=== PATIENT | male | born 2000 | race Caucasian/White ===

== ENCOUNTER 2025-03-02 11:23 | Inpatient (IN) | payer OTHER, SELFPAY ==
[2025-03-02] VITALS (8 sets, daily range): BP systolic 73–118; BP diastolic 61–73; BMI 19.0; BMI 19.1
[2025-03-02 08:16] LABS: Hematocrit 43.9 % (39.0-52.0); Hemoglobin 14.4 g/dL (13.0-18.0); Mean Corp Hgb Conc. 32.8 g/dL (33.0-37.0); Mean Corpuscular Volume 93.8 fL (80.0-94.0); Nucleated Red Blood Cells % 0 % (-); Platelet Count 221 10^3/uL (130-400); Red Cell Dist. Width 11.9 % (11.5-14.5)
--- NOTE | 2025-03-02 08:17 | ED.GENMED ---
History of Present Illness
General
Chief Complaint: Chest Pain
Source: patient
Exam Limitations: none
Time Seen by Provider: 03/02/25 08:10
Nursing documentation reviewed up to this point in time: agreed with
History of Present Illness
History of Present Illness:
24-year-old male smoker with no other reported chronic medical issues presents to the emergency department for evaluation of chest pain. Patient reports onset of symptoms this morning and have been constant since that time. He reports a sharp pain
in the right chest that gets worse with breathing. He denies any associated shortness of breath at rest although he reports pain causes him to be a bit short of breath especially when standing and moving around. He does have chronic smoker's cough
no worse than usual. He denies any recent congestion/sore throat/fever. Has not had any swelling or pain in the legs. Denies any abdominal pain, nausea, vomiting although he does report increased belching this morning. He denies any other acute
complaints. Denies any known history of heart issues, DVT/PE.
Review of Systems
Review of Systems
All Other Systems: ROS reviewed and negative except as documented in HPI and ROS
Constitutional: Denies fever or chills
EENT: Denies sore throat or runny nose
Respiratory: Reports trouble breathing; Denies cough (Chronic and unchanged)
Cardiac: Reports chest pain; Denies diaphoresis or palpitations
ABD/GI: Denies abdominal pain, nausea or vomiting
: Denies flank pain
Musculoskeletal: Denies neck pain or back pain
Neurological: Denies dizzy or headache
Phy Exam
Physical Exam
Physical Exam:
General: Awake, alert, oriented x3; no acute distress
Head: Normocephalic, atraumatic
Eyes: Conjunctiva normal, sclera anicteric
Throat: Airway intact, handling secretions
Neck: Trachea midline, supple without meningismus
Lungs: Clear to auscultation bilaterally, no wheezing, rales, rhonchi
Heart: Regular rate and rhythm, no murmurs, gallops, or rubs appreciated
Abd: Soft, non distended, nontender
Neuro: Grossly intact
Skin: Warm and dry
Extremities: No edema in extremities, no calf tenderness, equal pulses in all extremities
Scores
Heart Failure Risk
Heart Failure Risk Score: Not Applicable
Heart Score for Chest Pain Patients
STEMI patient?: No
History: Slightly or Non-Suspicious
ECG: Normal
Age: </= 45 years
Risk Factors: 1 or 2 Risk Factors
Troponin: </= Normal Limit
Heart Score for Chest Pain Patients: 1
Heart Score Risk: 2.5% MACE over next 6 weeks
PE Wells Score
Symptoms of DVT: No
No alternative diagnosis better explains the illness: No
Tachycardia with pulse > 100: No
Immobilization (>=3 days) or surgery within previous 4 weeks: No
Prior history of DVT or pulmonary embolism: No
Presence of hemoptysis: No
Presence of malignancy: No
Pulmonary Embolism Risk Score: 0
Probability of PE: Pt is low risk
Withdrawal Assessment of Alcohol
Withdrawal Assessment Completed?: Not applicable
Course
Orders/Labs/Results
Orders:
Orders
03/02/25 07:27
Electrocardiogram (*1) Urgent
Reason for Study: Chest Pain
03/02/25 07:28
EKG- Treatment ONCE
03/02/25 08:05
Complete Blood Count/With Diff Urgent
Comprehensive Metabolic Panel Urgent
Troponin I Urgent
03/02/25 08:11
CR Chest - 2 Views Urgent
Comment:
Reason For Exam: cp
03/02/25 08:16
Ketorolac [Toradol] 15 mg IV NOW STA
03/02/25 08:39
D-Dimer Urgent
Abnormal Lab Results
03/02/25
08:05
RBC 4.68 L 10^6/uL
(4.70-6.10)
MCHC 32.8 L g/dL
(33.0-37.0)
03/02/25 08:05
03/02/25 08:05
Vital Signs
Initial and Last Documented VS:
Initial Vital Signs
Temp Pulse Resp BP Pulse Ox
37.0 C 83 16 109/64 96
03/02/25 07:33 03/02/25 07:33 03/02/25 07:33 03/02/25 07:33 03/02/25 07:33
Last Documented Vital Signs
Temp Pulse Resp BP Pulse Ox
37.0 C 64 16 109/64 97
03/02/25 07:33 03/02/25 08:45 03/02/25 08:45 03/02/25 07:33 03/02/25 08:45
MDM/Problems Addressed
Differential Diagnosis Includes:
Costochondritis, pneumothorax, pneumonia, pericarditis, GERD; PE considered less likely clinically without tachypnea, hypoxia, tachycardia, signs/symptoms of DVT, risk factors; ACS considered very unlikely clinically
MDM/Problems Addressed:
24-year-old male smoker presents to the emergency room for evaluation of atypical right sided pleuritic chest pain. Vitals and exam are as above. EKG shows sinus rhythm no STEMI. Will place an IV check labs including a CBC and a CMP, troponin,
D-dimer. Check chest x-ray. Treat with Toradol. Reassess after the above.
Labs reviewed: CBC and CMP unremarkable, troponin undetectable. Chest x-ray reviewed by me shows large right-sided pneumothorax. Clinical reassessment patient remains stable. He is normotensive, normal heart rate, not tachypneic, not hypoxic. He
was placed on supplemental oxygen for his pneumothorax. I had a long discussion with the patient about the diagnosis will need tube thoracostomy. Discussed case with interventional radiology to facilitate chest tube. Will admit for continued
management.
Chronic conditions affecting care:
Smoking
*Radiology
Radiology exam reviewed: preliminary read by ED provider and radiology read reviewed
*Pulse Oximetry
SaO2: 96
Oxygen Mode of Delivery: Room air
Patient hypoxic: no (96%)
*EKG
Interpreted by ED Provider?: Yes
Heart Rate: 69
Rate: normal
Rhythm: sinus
[place]: right axis deviation
Interval: normal interval
QRS Pattern: normal QRS
Ischemia: no ischemia
*Critical Care Note
Total Time (30-74mins, 75-104mins- exclusive of procedures): Not Applicable
Data Reviewed
Source: patient and records
Patient Management
Discussion with other providers: Hospitalist (Discussed with hospitalist) and [employer] Practitioner (Discussed with interventional radiology)
Escalation/DeEscalation of care consider admission/obs:
Admission indicated
ED Attending Note
-
Portions of this chart may have been created with voice recognition software.� Occasional wrong word or��sound alike� substitutions may have occurred due to the inherent limitations of voice recognition software.
Discharge Plan
Departure
Discharge Problem:
Spontaneous pneumothorax
Prescriptions:
No Action
No Current Medications
0
Referrals:
Ronni Montes DO [Family Provider, Family Practice]
Interventions
Interventions:
*Risk Screen - Suicide Last Done: 03/02/25 07:33
*General Assessment Last Done: 03/02/25 07:33
*Neglect/Abuse Screening Last Done: 03/02/25 07:33
*ED- Fall Risk Assessment Last Done: 03/02/25 07:50
*ED COVID-19 Vaccine History Last Done: 03/02/25 07:33
*ED Influenza Vaccine History Last Done: 03/02/25 07:33
ED- Cardiac Assessment Last Done: 03/02/25 08:00
Discharge Date and Time
Print Language: GIBRALTARIAN
[2025-03-02 08:32] LABS: ALT (SGPT) 27 U/L (0-50); AST (SGOT) 26 U/L (17-59); Albumin 4.7 g/dl (3.5-5.0); Alkaline Phosphatase 73 U/L (38-126); Blood Urea Nitrogen 14 mg/dl (9-20); Calcium 9.2 mg/dl (8.4-10.2); Carbon Dioxide 29 mmol/L (22-30); Chloride 103 mmol/L (98-107); Estimated Creatinine Clearance 110 ml/min; Glucose 93 mg/dl (70-99); Potassium 4.4 mmol/L (3.5-5.1); Sodium 137 mmol/L (135-145); Total Protein 7.4 g/dl (6.3-8.2); eGFR > 60.00
[2025-03-02] MEDS: TORADOL 15 MG IV ×3 (08:40→23:12)
[2025-03-02 08:44] LABS: Troponin I < 0.012 ng/ml
[2025-03-02 09:10] LABS: D-Dimer < 0.27 ug/mlFEU (0.00-0.50)
--- NOTE | 2025-03-02 10:22 | W.PN.UPDATE ---
Update Note
Progress Note Update
Right chest tube placed 14 Fr adrian florentino, with near complete reexpansion of the right lung. Patient tolerated well.
--- NOTE | 2025-03-02 10:55 | PTCARENOTE ---
NATE RN- level two air leak noted of right chest tube. dr. velazquez made aware. no new orders at this time.
--- NOTE | 2025-03-02 11:14 | HPS.HSE ---
Family Physician
-
Family Physician: Ronni Montes
Chief Complaint
-
R chest pain
History of Present Illness
24yo M with PMHX of anxiety, medical marijuana use, nicotine dependency came with sharp constant R chest pain worse with respiration, found large R sided pneumothorax. No recent trauma to the chest noted. PAtient remained well saturating on RA in
ED. Chest tube placed.
Medical History
Past Medical History
Past Medical History: Reports Other
Additional Past Medical History:
see above
Past Surgical History: Reports None
Social History
Tobacco: Smoker
Alcohol: None
Drug: None
Family History
Family History: Not pertinent
Allergies / Home Medications
Allergies reflects when Allergies were last updated in [employer].
Home Medications with original date entered in [employer]
Allergy/Medication List:
Allergies
Allergy/AdvReac Type Severity Reaction Status Date / Time
seasonal allergies Allergy Itching Uncoded 03/02/25 07:35
Home Medications
Medical Marijuana 1 puff PO DAILYPRN PRN anxiety/stress 03/02/25
Review of Systems
-
History Source: Patient
A 12 point ROS was completed and negative except as noted: Yes
Respiratory: Reports See HPI
Physical Exam
Vital Signs
Vital Signs
Temp Pulse Resp BP Pulse Ox
97.8 F 59 15 97/64 96
03/02/25 10:29 03/02/25 10:41 03/02/25 10:41 03/02/25 10:41 03/02/25 10:41
Physical Exam
General: No Apparent Distress, Comfortable and Conversant
HEENT: NormoCephalic, Anicteric and Moist mucous membranes
Respiratory: Decreased Breath Sounds (R) and Chest Tube; No Wheezes or Crackles
Cardiac: S1/S2 and Regular Rhythm; No Murmur
GI: Soft, Non Tender and Non Distended
Genito-urinary: No costovertebral tender
Musculoskeletal: No Clubbing, No Cyanosis and No Edema
Skin: Warm; No Rash or Jaundice
Neuro: Awake, Alert, Oriented, AO x 3 and No Motor Deficits
Psych: Calm
Laboratory Results
-
03/02/25 08:05
03/02/25 08:05
Laboratory Results
Total Bilirubin 0.8 mg/dl (0.2-1.3) 03/02/25 08:05
AST 26 U/L (17-59) 03/02/25 08:05
ALT 27 U/L (0-50) 03/02/25 08:05
Alkaline Phosphatase 73 U/L (38-126) 03/02/25 08:05
Troponin I < 0.012 ng/ml 03/02/25 08:05
Data Reviewed
-
Diagnostic Radiology: Report Reviewed by me
Lab Data: Labs Reviewed by me
Impression/Plan
-
A/P:
#Spontaneous R pneumothorax
Chest tube placed by IRAD and water seal to low intermittent suction
Pulm consult
quit smoking
Serial CXR
Pain mgmt
NC 6L to facilitate reexpansion
Air lak test upon reexpansion and plan for chest tube removal
Avoid air travel for few months
Defer decision on CT chest to Pulm
#Nicotine dependency
Nicoderm patch
DVT ppx Lovenox
Full code
I have spent at least 76min revewing chart, test results, communication with consultants, father bedside and providing direct patient care
--- NOTE | 2025-03-02 11:27 | CM ---
Chart reviewed and spoke with patient and his father at ED bedside
He lives with his parents in [address] [place]
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
no DME
PCP Dr. Ronni Montes
RX plan yes
Pharmacy [facility]
no hx of VN nor SNF
DCP is to go home with no needs
Parents can drive him home
CM will continue to follow up for any dcp needs
--- NOTE | 2025-03-02 14:17 | CON.PUL ---
Consultation
Consultation Request
Date/Time Consultation Requested: 03/02/25
Date/Time Consultation Performed: 03/02/25
Performing Provider: Lakesha
Reason for Consultation: Ptx
Medical History
-
History of Present Illness:
24-year-old male with previous history of anxiety, current smoker presenting with acute onset right sided chest pain with shortness of breath. Chest x-ray demonstrating large right-sided pneumothorax with tension. Underwent urgent chest tube
placement on 03/02/2025 by IR with complete resolution. Never had pneumothorax before, denies prior known history of lung disease.
Current half pack-a-day smoker.
Past Medical History
Past Medical History: Other (see list below)
Social History
Tobacco: Smoker
Alcohol: None
Drug: None
Family History
Family History: Reviewed & Not Pertinent
Allergies / Home Medications
Allergies
Allergy/AdvReac Type Severity Reaction Status Date / Time
seasonal allergies Allergy Itching Uncoded 03/02/25 07:35
Home Medications
�Medication �Instructions �Recorded �Confirmed �Last Taken �Type
Medical Marijuana 1 puff PO DAILYPRN PRN 03/02/25 03/02/25 Unknown History
anxiety/stress
Review of Systems
-
History Source: Patient
All other systems: Negative unless noted
Vitals / Labs / Diagnostic Testing
Vital Signs
Temp Pulse Resp BP Pulse Ox
98.0 F 67 18 118/65 99
03/02/25 13:40 03/02/25 13:40 03/02/25 13:40 03/02/25 13:40 03/02/25 13:40
Lab Data
03/02/25 08:05
03/02/25 08:05
Diagnostic Testing:
Physical Exam
-
HEENT: Normocephalic, Anicteric and Moist Mucous Membranes
Cardiovascular: S1/S2 and Regular Rhythm
Respiratory: Clear, Non-Labored Respirations and Other (chest tube)
GI: Soft, Non Distended and Non Tender
Neurology: Awake, Alert, Oriented and No Motor Deficits
Skin: Warm, Dry and Good Color
General: Comfortable and Other (NAD)
Assessment
-
24-year-old male with previous history of anxiety, current smoker presenting with acute onset right sided chest pain with shortness of breath. Chest x-ray demonstrating large right-sided pneumothorax with tension. Underwent urgent chest tube
placement on 03/02/2025 by IR with complete resolution. Never had pneumothorax before, denies prior known history of lung disease. Current half pack-a-day smoker. We are consulted for evaluation 03/02/25.
Spontaneous pneumothorax, R s/p chest tube 03/02/25
Current smoker
R sided chest pain, SOB
Conditions present prior to admission
Alcohol intoxication, ER visit 2016, ETOH level 241
Anxiety
Medical THC use
Plan
No oxygen was needed on admission, currently saturating >90% on RA
No prior history of lung disease is noted
He is a current smoker, THC user as well
CXR/CT obtained indicating large R sided ptx, s/p chest tube placement by IR 03/02
Continued on suction, repeat CXR improved
Still having occasional bubbling in chamber, will await 24 hours to apply waterseal
Repeat CXR in AM
If doing well we discussed clamp trial by Friday
Smoking history noted - 1/2 PPD
Smoking cessation recommended, he is on patch daily
We discussed use of SL/PO THC rather than inhaled for medical usage
Will need outpatient pulmonary evaluation in our office for PFTs and 6MWT
Reviewed with patient and mother at bedside
All questions answered
We will follow
Diagnostic Data
Chest X-Ray: 03/02/25-Large right-sided pneumothorax. Slight shift of the mediastinum toward the left, indicating a degree of tension.
CT Scan:
Echo:
PFT's:
Reports and relevant images were personally reviewed.
Total time spent on this consultation __55__ minutes which includes review of history, physical exam, medications, laboratory data, personal review of imaging, extensive review of outpatient records, discussion with care team and respiratory therapy.
[2025-03-02] MEDS: NICODERM TRANSDERMAL 14 MG TRANSDERM (14:20)
[2025-03-02] MEDS: LOVENOX 40 MG SC (17:03)
[2025-03-02] MEDS: TYLENOL 650 MG PO (18:28)
[2025-03-02] MEDS: PROTONIX 40 MG PO (19:43)
[2025-03-02] MEDS: ZOFRAN 4 MG IV (19:43)
[2025-03-02] MEDS: DILAUDID 0.5 MG IV (19:44)
[2025-03-03] MEDS: DILAUDID 0.5 MG IV ×2 (06:29→20:21)
[2025-03-03 07:44] VITALS: BP 103/61
[2025-03-03] MEDS: PROTONIX 40 MG PO ×2 (08:12→20:20)
[2025-03-03] MEDS: NICODERM TRANSDERMAL 14 MG TRANSDERM (08:12)
--- NOTE | 2025-03-03 09:42 | PTCARENOTE ---
pt aaox3. states discomfort at chest tube site pain med given as ordered. right chest tube in place to wall suction. dressing c/d/i. reviewed plan of care with pt and importance to quit smoking.
--- NOTE | 2025-03-03 09:53 | W.PN.HOSP.TC ---
Today's Communication/Plan
-
take of O2 as lung reexpanded
Pulm tube mgmt
Chest XR in AM
Assessment / Plan
Assessment / Plan
24yo M with PMHX of anxiety, medical marijuana use, nicotine dependency came with sharp constant R chest pain worse with respiration, found large R sided pneumothorax. No recent trauma to the chest noted. PAtient remained well saturating on RA in
ED. Chest tube placed, lung reexpanded
A/P:
#Spontaneous R pneumothorax
Chest tube placed by IRAD and water seal to low intermittent suction,
Pulm consult
quit smoking
Serial CXR
Pain mgmt: patient declined opioids to concern for addiction. Ketorolac and PPI ordered
Air leak test upon reexpansion and plan for chest tube removal
Avoid air travel for few months
Defer decision on CT chest to Pulm
#Nicotine dependency
Nicoderm patch
#Anxiety
using medical marijuana - smokes
advised to stop/look for alternative - non-inhalation delivery method
DVT ppx Lovenox
Full code
I have spent at least 56min reviewing chart, test results, communication with consultants, father bedside and providing direct patient care
Anticipated Discharge: > 48 hours
Subjective/Interval History
-
Date of Service: March 03, 2025
Objective Data
-
Vital Signs:
Vital Signs
Temp Pulse Resp BP Pulse Ox
97.5 F 52 16 103/61 100
03/03/25 07:44 03/03/25 07:44 03/03/25 07:44 03/03/25 07:44 03/03/25 07:44
I&O
03/02/25 03/03/25 03/04/25
06:59 06:59 06:59
Intake Total 520 / 520
Output Total 3 / 3
Balance 517 / 517
Review of Systems
-
History Source: Patient
Constitutional: Reports No Symptoms
Physical Exam
-
General: No Apparent Distress
HEENT: Normocephalic
Respiratory: Clear to Auscultation
Cardiac: Regular Rhythm
Neuro: Awake, Alert, Oriented and AO x 3
Psych: Calm
--- NOTE | 2025-03-03 15:53 | W.PN.PUL3 ---
Today's Communication / Plan
-
Airleak unfortunately is persisting with tidal expiration as well as forced expiration (level 1 and level 5 leaking, respectively)
Continue with -20 cm of suction
CXR tomorrow AM
Pain control
If pain worsens then obtain stat CXR to reassess for worsening of right side PTX
Avoid incentive spirometer as this can worsen his PTX
If patient develops a prolonged airleak, then will need CT chest imaging as well as CT surgical evaluation
Pulmonary service will continue to follow along
Assessment
-
24-year-old male with previous history of anxiety, current smoker presenting with acute onset right sided chest pain with shortness of breath. Chest x-ray demonstrating large right-sided pneumothorax with tension. Underwent urgent chest tube
placement on 03/02/2025 by IR with complete resolution. Never had pneumothorax before, denies prior known history of lung disease. Current half pack-a-day smoker. We are consulted for evaluation 03/02/25.
Spontaneous pneumothorax, R s/p chest tube 03/02/25
Current smoker with history of vaping and THC use
R sided chest pain, SOB
Conditions present prior to admission
Alcohol intoxication, ER visit 2017, ETOH level 241
Anxiety
Medical THC use
Plan
No oxygen was needed on admission, currently saturating >90% on RA
No prior history of lung disease is noted
He is a current smoker, THC user as well
CXR/CT obtained indicating large R sided ptx, s/p small bore 14 Fr chest tube placement by IR 03/02
Continued on suction, repeat CXR this morning shows near complete resolution of pneumothorax, however there still is an air leak seen today on Pleur-evac (03/03)
Not appropriate yet to place chest tube on to waterseal
Obtain serial imaging with repeat CXR tomorrow a.m. to assure PTX is still resolved
If right-sided chest pain persists/worsens, then need to obtain stat CXR with notification to pulmonary on-call
If patient develops a prolonged airleak, then CT chest imaging will be needed with CT surgery evaluation
Smoking history noted - 0.5 - 1 PPD x 6 years
He says that he was dabbing THC 1-2 days prior to his PTX developing, and he had coughed while dabbing - I believe this is what caused his PTX
Avoid incentive spirometer for now as this can worsen his right-sided pneumothorax
Smoking cessation recommended, he is on patch daily
We discussed use of SL/PO THC rather than inhaled for medical usage
Will need outpatient pulmonary evaluation in our office for PFTs and 6MWT
Reviewed with patient and mother at bedside
All questions answered
We will follow
Diagnostic Data
Chest X-Ray: 03/02/25-Large right-sided pneumothorax. Slight shift of the mediastinum toward the left, indicating a degree of tension.
CT Scan:
Echo:
PFT's:
Reports and relevant images were personally reviewed.
Total time spent on this consultation __42__ minutes which includes review of history, physical exam, medications, laboratory data, personal review of imaging, extensive review of outpatient records, discussion with care team and respiratory therapy.
Subjective Data
-
Date of Service:
Date of Service: March 03, 2025
Chief Complaint: Pulmonary Follow Up
Subjective:
Patient seen and evaluated earlier this afternoon (late note entry). Near complete resolution of right-sided pneumothorax seen on CXR this morning. When I saw the patient, he had walked to the bathroom and then when he was placed back onto suction
of the chest tube, he developed significant right-sided chest pain. The pain is slowly improving s/p Toradol and ice pack. Patient is found members x 2 are at bedside
Chest tube remains on negative suction at 20 cmH2O. There remains an air leak in the Pleur-evac, with level 1 with normal tidal expiration and up to level 5 with forced expiration (i.e. cough).
Review of Systems
General: Other (Negative unless mentioned above)
Objective Data
Data Reviewed
Vital Signs / I&O / Oxygen:
Vital Signs
Temp Pulse Resp BP Pulse Ox
97.5 F 52 16 103/61 100
03/03/25 07:44 03/03/25 07:44 03/03/25 07:44 03/03/25 07:44 03/03/25 07:44
Intake and Output
03/02/25 03/03/25 03/04/25
06:59 06:59 06:59
Intake Total 520 / 520
Output Total 3 / 3
Balance 517 / 517
SaO2 100
Nasal Cannula flow liters per 6
minute
Physical Exam
General: Respiratory Distress (n), Comfortable, Chills (n) and Sweats (n)
HEENT: Normocephalic and Anicteric
Cardiovascular: S1-S2 and Peripheral Edema (n)
Respiratory: Wheeze (Occasionally heard during expiration at anterior right hemithorax), Crackles (Lateral right hemithorax), Rhonchi (n), Non-Labored Respirations and Chest Tube (Right hemithorax with level 1 airleak with normal tidal expiration
and level 5 airleak with forced expiration (i.e. cough).)
GI: Soft, Non Distended, Non Tender and Normal Bowel Sounds
Neurology: AO x 3 and Tremors (n)
Skin: Warm, Dry, Good Color and Cyanosis (n)
Labs/Micro/Reports
Lab Data
03/02/25 08:05
03/02/25 08:05
[2025-03-03 16:24] VITALS: BP 113/65
[2025-03-03] MEDS: TORADOL 15 MG IV (16:28)
[2025-03-03] MEDS: LOVENOX 40 MG SC (16:29)
[2025-03-03 23:09] VITALS: BP 108/59
[2025-03-04] MEDS: TYLENOL 650 MG PO (06:03)
[2025-03-04 07:00] VITALS: BP 109/62
[2025-03-04] MEDS: PROTONIX 40 MG PO ×2 (08:03→19:54)
[2025-03-04] MEDS: NICODERM TRANSDERMAL 14 MG TRANSDERM (08:03)
[2025-03-04] MEDS: MORPHINE SULFATE 2 MG IV ×2 (08:53→19:23)
--- NOTE | 2025-03-04 09:22 | W.PN.PUL3 ---
Today's Communication / Plan
-
Chest tube with ongoing intermittent leaking, suction remains
CT chest reviewed, persistent ptx, suction will be increased to -30
Reviewed case with IR, CTS, will place formal CT consult
I discussed with family extensively today at bedside
Pain management
Repeat CXR in AM
Assessment
-
24-year-old male with previous history of anxiety, current smoker presenting with acute onset right sided chest pain with shortness of breath. Chest x-ray demonstrating large right-sided pneumothorax with tension. Underwent urgent chest tube
placement on 03/02/2025 by IR with complete resolution. Never had pneumothorax before, denies prior known history of lung disease. Current half pack-a-day smoker. We are consulted for evaluation 03/02/25.
Spontaneous pneumothorax, R s/p chest tube 03/02/25
Current smoker with history of vaping and THC use
R sided chest pain, SOB
Conditions present prior to admission
Alcohol intoxication, ER visit 2017, ETOH level 241
Anxiety
Medical THC use
Plan
No oxygen was needed on admission, currently saturating >90% on RA
No prior history of lung disease is noted
He is a current smoker, THC user as well--discussed smoking cessation
CXR/CT obtained indicating large R sided ptx, s/p small bore 14 Fr chest tube placement by IR 03/02
Continued on suction, repeat CXR this morning shows near complete resolution of pneumothorax, however there still is an air leak seen today on Pleur-evac (03/03)
Not appropriate yet to place chest tube on to waterseal
CT chest imaging obtained with persistent ptx, suction increase to -30; chest tube remains in good position
Reviewed case with CT surgery -- will place formal evaluation
Smoking history noted - 0.5 - 1 PPD x 6 years
He says that he was dabbing THC 1-2 days prior to his PTX developing, and he had coughed while dabbing - I believe this is what caused his PTX
Avoid incentive spirometer for now as this can worsen his right-sided pneumothorax
Smoking cessation recommended, he is on patch daily
We discussed use of SL/PO THC rather than inhaled for medical usage
Will need outpatient pulmonary evaluation in our office for PFTs and 6MWT
Reviewed with patient and mother at bedside--had a prolonged discission again today
All questions answered
We will follow
Diagnostic Data
Chest X-Ray: 03/02/25-Large right-sided pneumothorax. Slight shift of the mediastinum toward the left, indicating a degree of tension.
CT Scan: 03/04/25- Right chest tube catheter in place. Moderate right pneumothorax. Associated mild posterior right lung base atelectasis. No pleural effusion or mediastinal shift.
Echo:
PFT's:
Reports and relevant images were personally reviewed.
Total time spent on this consultation __52__ minutes which includes review of history, physical exam, medications, laboratory data, personal review of imaging, extensive review of outpatient records, discussion with care team and respiratory therapy.
Subjective Data
-
Date of Service:
Date of Service: March 04, 2025
Chief Complaint: Pulmonary Follow Up
Subjective:
Still with intermittent leak while on suction
No new complaints, pain at site of chest tube
Family at bedside
Objective Data
Data Reviewed
Vital Signs / I&O / Oxygen:
Vital Signs
Temp Pulse Resp BP Pulse Ox
98.7 F 72 17 109/62 98
03/04/25 07:00 03/04/25 07:00 03/04/25 07:00 03/04/25 07:00 03/04/25 07:45
Intake and Output
03/03/25 03/04/25 03/05/25
06:59 06:59 06:59
Intake Total 520 / 520 1440 / 1440
Output Total 3 / 3 0 / 0
Balance 517 / 517 1440 / 1440
SaO2 98
Nasal Cannula flow liters per 6
minute
Physical Exam
General: Respiratory Distress (n), Comfortable, Chills (n) and Sweats (n)
HEENT: Normocephalic and Anicteric
Cardiovascular: S1-S2 and Peripheral Edema (n)
Respiratory: Wheeze (Occasionally heard during expiration at anterior right hemithorax), Crackles (Lateral right hemithorax), Rhonchi (n), Non-Labored Respirations and Chest Tube (Right hemithorax with level 1 airleak with normal tidal expiration
and level 5 airleak with forced expiration (i.e. cough).)
GI: Soft, Non Distended, Non Tender and Normal Bowel Sounds
Neurology: AO x 3 and Tremors (n)
Skin: Warm, Dry, Good Color and Cyanosis (n)
Labs/Micro/Reports
Lab Data
03/02/25 08:05
03/02/25 08:05
--- NOTE | 2025-03-04 10:13 | W.PN.HOSP.TC ---
Today's Communication/Plan
-
cont chest tube mgmt as per pulm
CT chest
Switch Ketorolac to morphin to avoid GI side effects, since chest tube planned to emain for now. Family and patient agree
Assessment / Plan
Assessment / Plan
24yo M with PMHX of anxiety, medical marijuana use, nicotine dependency came with sharp constant R chest pain worse with respiration, found large R sided pneumothorax. No recent trauma to the chest noted. PAtient remained well saturating on RA in
ED. Chest tube placed, lung reexpanded, but air leak persisted
A/P:
#Spontaneous R pneumothorax
Chest tube placed by IRAD and water seal to low intermittent suction,
Pulm consult
quit smoking
Serial CXR
Pain mgmt
Air leak test upon reexpansion and plan for chest tube removal
Avoid air travel for few months
CT chest wo contrast as per discussion with pulm due to persistent air leak
#Nicotine dependency
Nicoderm patch
#Anxiety
using medical marijuana - smokes
advised to stop/look for alternative - non-inhalation delivery method
DVT ppx Lovenox
Full code
I have spent at least 51min reviewing chart, test results, communication with consultants, father and mother bedside and providing direct patient care
Anticipated Discharge: > 48 hours
Subjective/Interval History
-
Date of Service: March 04, 2025
Objective Data
-
Vital Signs:
Vital Signs
Temp Pulse Resp BP Pulse Ox
98.7 F 72 17 109/62 98
03/04/25 07:00 03/04/25 07:00 03/04/25 07:00 03/04/25 07:00 03/04/25 07:45
I&O
03/03/25 03/04/25 03/05/25
06:59 06:59 06:59
Intake Total 520 / 520 1440 / 1440
Output Total 0 / 0
Balance 517 / 517 1440 / 1440
Review of Systems
-
History Source: Patient
All other systems: Reviewed and negative
Musculoskeletal: Reports Other (R chest pain, pleuritic)
Physical Exam
-
Respiratory: Rales (R); Negative Wheezes
GI: Soft, Nontender and Nondistended
Neuro: Awake, Alert, Oriented and AO x 3
Psych: Calm
--- NOTE | 2025-03-04 10:26 | W.PN.UPDATE ---
Update Note
Progress Note Update
Urinary retention with pain reported by RN
repeat labs
US renal and bladder
Bladder scan q6h
IVF
UA
[2025-03-04] MEDS: DILAUDID 0.5 MG IV ×3 (10:31→23:59)
[2025-03-04] MEDS: NSS 1000 IV (10:37)
[2025-03-04 10:59] LABS: Hematocrit 43.4 % (39.0-52.0); Hemoglobin 14.7 g/dL (13.0-18.0); Mean Corp Hgb Conc. 33.9 g/dL (33.0-37.0); Mean Corpuscular Volume 88.6 fL (80.0-94.0); Nucleated Red Blood Cells % 0 % (-); Platelet Count 248 10^3/uL (130-400); Red Cell Dist. Width 11.8 % (11.5-14.5)
[2025-03-04 11:13] LABS: ALT (SGPT) 21 U/L (0-50); AST (SGOT) 19 U/L (17-59); Albumin 4.3 g/dl (3.5-5.0); Alkaline Phosphatase 66 U/L (38-126); Blood Urea Nitrogen 16 mg/dl (9-20); Calcium 9.0 mg/dl (8.4-10.2); Carbon Dioxide 30 mmol/L (22-30); Chloride 104 mmol/L (98-107); Estimated Creatinine Clearance 111 ml/min; Glucose 102 mg/dl (70-99); Potassium 4.2 mmol/L (3.5-5.1); Sodium 138 mmol/L (135-145); Total Protein 7.4 g/dl (6.3-8.2); eGFR > 60.00
--- NOTE | 2025-03-04 12:09 | CONSULT.CT ---
Addendum entered and electronically signed by Khai Coles MD 03/05/25 08:28:
I saw and examined the patient.
The PA's note was reviewed and I agree with the note.
Comment:
24M spontaneous PTX
Recurrent PTX when on H2O seal yesterday
Resolution post return to suction
Maintain suction thru the weekend - potential H2O on Friday at [place]
Follow daily CXRs
Original Note:
Consultation
-
Date/Time Consultation Requested: 03/04/25
Date/Time Consultation Performed: 03/04/25
Requesting Provider: Dr. Nelly Ibarra
Performing Provider: Purvi Painting PA-C for Dr. Khai Coles
Reason for Consultation: spontaneous PTX
Patient History
Physicians
Family Physician: Ronni Montes
History of Present Illness
Patient is a 24y/oM with PMH anxiety & tobacco abuse who presented to the ED 03/02/25 with complaints of R sided chest pain, worsened by inspiration. Pt noted to have a large R sided PTX on CXR & chest tube was placed by IR without incident. CXR
yesterday AM with good expansion. Pt went for CT chest today & had a moderate PTX during study while off suction. CTS consulted for CT management and potential surgical intervention.
Past Medical History
Past Medical History: Other
anxiety
current tobacco abuse
Past Surgical History
Past Surgical History: None
Social History
Alcohol: None
Drug: None
Tobacco: Smoker
Allergies
Allergy/AdvReac Type Severity Reaction Status Date / Time
seasonal allergies Allergy Itching Uncoded 03/02/25 07:35
Home Medications
�Medication �Instructions �Recorded �Confirmed �Type
Medical Marijuana 1 puff PO DAILYPRN PRN 03/02/25 03/02/25 History
anxiety/stress
Review of Systems
-
History Source: Patient
General: Reports No Symptoms
Respiratory: Reports Other (pain from chest tube); Denies SOB or GIFFORD
Abdomen/GI: Reports No Symptoms
Neurological: Reports No Symptoms
Physical Exam
Vital Signs
Temp 98.7 F 03/04/25 07:00
Temp route: Oral 03/04/25 07:00
Pulse 72 03/04/25 07:00
Resp Rate 17 03/04/25 07:00
Blood pressure 109/62 03/04/25 07:00
Blood pressure extremity used: Left upper arm 03/04/25 07:00
Position: Lying 03/04/25 07:00
SaO2 98 03/04/25 07:45
Nasal Cannula flow liters per minute 6 03/03/25 09:42
Oxygen Mode of Delivery Room air 03/04/25 07:45
Other oxygen comment hummidified 03/02/25 20:00
Can the patient verbally communicate their pain? Yes 03/04/25 11:31
Pain scale ratin 03/04/25 11:31
Actual Weight 55.395 kg 03/02/25 13:48
Body Mass Index (BMI) 19.1 03/02/25 13:48
etC02 value 40 03/02/25 10:41
Labs
03/04/25 10:42
03/04/25 10:42
Troponin I < 0.012 ng/ml 03/02/25 08:05
Exam
General: Well Developed, Well Nourished and No Apparent Distress
Respiratory: Clear and Other (Chest tube currently at -30cm h2o; no tidaling or air leaking noted with deep inspiration or cough; chest tube not kinked at skin, dressings clean & intact, minimal drainage in pleurevac); Negative Accessory Muscle Use
Cardiac: Regular Rhythm
Rectal: Deferred by Provider
Skin: Warm and Dry
Neuro: Nonfocal/Grossly Intact
Psych: Calm
Assessment / Plan
-
R sided spontaneous PTX s/p chest tube placement by IR 03/02/25
- lung dropped significantly while off suction for CT scan, would continue suction uninterrupted x 48-72 hrs
- Chest tube currently not tidaling or leaking air; repeat portable CXR now to eval for resolution of PTX seen on CT scan
- daily AM CXRs
- pain control as needed per primary team
continue conservative measures through the weekend, if no progress toward tube removal by early next week, will consider surgical intervention. our team will follow along
Data Reviewed
-
Radiology: Image Personally Visualized and interpreted and Report Reviewed by me
CT Scan: Image Personally Visualized and interpreted and Report Reviewed by me
Labs: Labs Reviewed by me
--- NOTE | 2025-03-04 13:04 | W.PN.UPDATE ---
Addendum entered and electronically signed by He Adhikari MD 03/04/25 13:52:
Patient seen bedside - feeling comfortable. Previously able to urinate in the bathroom, but now due to continuous suctioning - has to do it bedside. Has Hx of urination anxiety. Currently agreeable for [facility] since will be limited in ambulation for
some time
Original Note:
Update Note
Progress Note Update
Acute urinary retention without focal neurological deficit - bladder scan 526ml and still cannot void with dyscomfort
US pending
Farris and urology consult
[2025-03-04] MEDS: LIDOCAINE URO-JET 2% 1 SYRINGE TOPICAL (14:11)
--- NOTE | 2025-03-04 14:17 | CON.MD ---
Consultation - Medical
-
see dictated note
pt with hx of hypospadius repair/bashful bladder/anxiety disorder
admitted with spont pneumothorax
unable to urinate- bladder scan >500cc
montes de oca placed- urine clear
start flomax
TOV in 48hrs depeding on CT disposition
Consultation
-
Date/Time Consultation Requested: 03/04/25 at 1:30 pm
Date/Time Consultation Performed: 03/04/25 at 2pm
Requesting Provider: Dr Adhikari
Performing Provider: Dr Egan
Reason for Consultation: retention
[2025-03-04] MEDS: FLOMAX 0.4 MG PO (14:52)
[2025-03-04 15:00] LABS: Urine Character Clear (Clear)
[2025-03-04 15:26] LABS: Urine Squamous Cell 0-2 /LPF (Few)
[2025-03-04 15:27] LABS: Urine Red Blood Cell 0-2 /HPF (0-2); Urine Urothelial Cell 0-2 /LPF (FEW); Urine White Cell 0-2 /HPF (0-5)
[2025-03-04 15:57] VITALS: BP 103/66
--- NOTE | 2025-03-04 16:58 | PTCARENOTE ---
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 Patient had 0 output overnight and throughout morning. Patient asked to void multiple times and unable to do so. Patient having difficulty and unable to void at
all. MD notified. Urology consulted..montes de oca catheter placed by Dr. Egan. Patient educated given.
--- NOTE | 2025-03-04 17:02 | CM ---
Pt with chest tube due to pneumothorax and montes de oca due to difficulty with urination.
Plan: discharge to home when medically cleared.
[2025-03-04] MEDS: LOVENOX 40 MG SC (17:25)
[2025-03-04] MEDS: NSS IV (22:23)
[2025-03-04 23:28] VITALS: BP 99/68
[2025-03-05 06:16] LABS: Hematocrit 39.6 % (39.0-52.0); Hemoglobin 13.5 g/dL (13.0-18.0); Mean Corp Hgb Conc. 34.1 g/dL (33.0-37.0); Mean Corpuscular Volume 89.0 fL (80.0-94.0); Nucleated Red Blood Cells % 0 % (-); Platelet Count 204 10^3/uL (130-400); Red Cell Dist. Width 11.8 % (11.5-14.5)
[2025-03-05 06:38] LABS: ALT (SGPT) 18 U/L (0-50); AST (SGOT) 19 U/L (17-59); Albumin 3.7 g/dl (3.5-5.0); Alkaline Phosphatase 56 U/L (38-126); Blood Urea Nitrogen 13 mg/dl (9-20); Calcium 8.7 mg/dl (8.4-10.2); Carbon Dioxide 29 mmol/L (22-30); Chloride 105 mmol/L (98-107); Estimated Creatinine Clearance 111 ml/min; Glucose 87 mg/dl (70-99); Potassium 4.1 mmol/L (3.5-5.1); Sodium 137 mmol/L (135-145); Total Protein 6.4 g/dl (6.3-8.2); eGFR > 60.00
[2025-03-05 07:00] VITALS: BP 113/65
--- NOTE | 2025-03-05 07:38 | W.PN.URO.CBU ---
Today's Communication / Plan
-
continue montes de oca and flomax
Assessment / Plan
-
urinary retention
montes de oca placed easily
on flomax
possible TOV in next 24-48hrs depending on CT dispo
Diagnosis
-
Date of Service: March 05, 2025
-
Patient Diagnosis:
pneumothorax
hx of hypospdius repair
urinary retention
Subjective
-
pt stable
urine clear
on flomax
Objective
-
Vital Signs
Temp Pulse Resp BP Pulse Ox
97.8 F 60 16 99/68 99
03/04/25 23:28 03/04/25 23:28 03/04/25 23:28 03/04/25 23:28 03/04/25 23:28
Intake and Output
03/04/25 03/05/25 03/06/25
06:59 06:59 06:59
Intake Total 1440 / 1440
Output Total 0 / 0 2 / 2
Balance 1440 / 1440 -2 / -2
Intake:
Oral fluids 1440 / 1440
Output:
CT Output (Total) 0 / 0 2 / 2
Right Lateral 0 / 0 2 / 2
Urine, Voided 0 / 0
Other:
Number of approximated MODERATE 1
amounts of urine
Laboratory Results
03/05/25 06:04
03/05/25 06:04
Physical Exam
-
General - no acute distress
Abdomen - soft, non-tender
Genitalia - montes de oca in place
[2025-03-05] MEDS: DILAUDID 0.5 MG IV ×2 (08:32→20:30)
[2025-03-05] MEDS: PROTONIX 40 MG PO ×2 (08:34→20:30)
[2025-03-05] MEDS: FLOMAX 0.4 MG PO (08:34)
[2025-03-05] MEDS: NICODERM TRANSDERMAL 14 MG TRANSDERM (08:34)
--- NOTE | 2025-03-05 10:41 | W.PN.HOSP.TC ---
Today's Communication/Plan
-
XR in AM
dont disconnect from suctioning
Assessment / Plan
Assessment / Plan
24yo M with PMHX of anxiety, medical marijuana use, nicotine dependency came with sharp constant R chest pain worse with respiration, found large R sided pneumothorax. No recent trauma to the chest noted. PAtient remained well saturating on RA in
ED. Chest tube placed, lung reexpanded, but air leak persisted
A/P:
#Spontaneous R pneumothorax
Chest tube placed by IRAD and water seal to low intermittent suction,
Pulm consult
quit smoking
Serial CXR
Pain mgmt
Air leak test upon reexpansion and plan for chest tube removal
Avoid air travel for few months
Chest tube repositioned as per results of CT chest on 03/04/25
CTX involved: cont continuous suctioning - dont disconnect from suction and follow recovery in few days, if unsuccessful - will need intervention
#Anxiety with situational acute urinary retention
[facility] per urology
Previously able to urinate in the bathroom, but now due to continuous suctioning - has to do it bedside. Has Hx of urination anxiety.
TOV when off suctioning
#Nicotine dependency
Nicoderm patch
#Anxiety
using medical marijuana - smokes
advised to stop/look for alternative - non-inhalation delivery method
DVT ppx Lovenox
Full code
I have spent at least 51min reviewing chart, test results, communication with consultants, father and mother bedside and providing direct patient care
Anticipated Discharge: > 48 hours
Subjective/Interval History
-
Date of Service: March 05, 2025
Objective Data
-
Labs:
Laboratory Results
03/05/25
06:04
WBC 8.2
Hgb 13.5
Hct 39.6
Plt Count 204
Sodium 137
Potassium 4.1
Chloride 105
Carbon Dioxide 29
BUN 13
Creatinine 0.8
Glucose 87
Calcium 8.7
Total Bilirubin 0.9
AST 19
ALT 18
Alkaline Phosphatase 56
Vital Signs:
Vital Signs
Temp Pulse Resp BP Pulse Ox
97.7 F 62 18 113/65 100
03/05/25 07:00 03/05/25 07:00 03/05/25 07:00 03/05/25 07:00 03/05/25 07:00
I&O
03/04/25 03/05/25 03/06/25
06:59 06:59 06:59
Intake Total 1440 / 1440 480 / 480
Output Total 0 / 0 1302 / 1302
Balance 1440 / 1440 -822 / -822
Review of Systems
-
History Source: Patient
All other systems: Reviewed and negative
Physical Exam
-
Respiratory: Rales (R)
GI: Soft, Nontender and Nondistended
Genito-urinary: Clear Urine and Farris
[2025-03-05] MEDS: MORPHINE SULFATE 2 MG IV ×2 (11:56→17:08)
[2025-03-05 15:00] VITALS: BP 105/64
--- NOTE | 2025-03-05 16:39 | W.PN.PUL3 ---
Today's Communication / Plan
-
Chest tube with ongoing intermittent leaking, suction remains
CT chest reviewed showing RUL 2.3 cm bullae with mild paraseptal emphysema in the anteromedial apical upper lobes with persistent ptx - -> suction to remain at [id number]
Reviewed case with IR, CTS - -> CT surgery recommends to maintain on CWS throughout the weekend
If airleak persists on Friday, would recommend upsizing chest tube
Pain management
Daily CXR
Pulmonary service will continue to follow along
Assessment
-
24-year-old male with previous history of anxiety, current smoker presenting with acute onset right sided chest pain with shortness of breath. Chest x-ray demonstrating large right-sided pneumothorax with tension. Underwent urgent chest tube
placement on 03/02/2025 by IR with complete resolution. Never had pneumothorax before, denies prior known history of lung disease. Current half pack-a-day smoker. We are consulted for evaluation 03/02/25.
Spontaneous pneumothorax, R s/p chest tube 03/02/25
Current smoker with history of vaping and THC use
R sided chest pain, SOB
Conditions present prior to admission
Alcohol intoxication, ER visit 2016, ETOH level 241
Anxiety
Medical THC use
Plan
No oxygen was needed on admission, currently saturating >90% on RA
No prior history of lung disease is noted
He is a current smoker, THC user as well--discussed smoking cessation
CXR/CT obtained indicating large R sided ptx, s/p small bore 14 Fr chest tube placement by IR 03/02
Continued on suction, repeat CXR this morning shows small apical right pneumothorax, and there is still is an air leak seen today on Pleur-evac (03/05), although improved compared to 03/03
Not appropriate yet to place chest tube on to waterseal
CT chest imaging obtained with persistent ptx, suction increase to -30; chest tube remains in good position
Reviewed case with CT surgery -- recs appreciated; no acute cardiothoracic intervention needed at this time
Smoking history noted - 0.5 - 1 PPD x 6 years
He says that he was dabbing THC 1-2 days prior to his PTX developing, and he had coughed while dabbing - I believe this is what caused his PTX
Avoid incentive spirometer for now as this can worsen his right-sided pneumothorax
Smoking cessation recommended, he is on patch daily
We discussed use of SL/PO THC rather than inhaled for medical usage
Will need outpatient pulmonary evaluation in our office for PFTs and 6MWT
Reviewed with patient and mother at bedside--had a prolonged discission again today
I answered all of the questions and the father's (Son) questions as well to their satisfaction.
We will follow
Diagnostic Data
Chest X-Ray: 03/02/25-Large right-sided pneumothorax. Slight shift of the mediastinum toward the left, indicating a degree of tension.
CT Scan: 03/04/25- Right chest tube catheter in place. Moderate right pneumothorax. Associated mild posterior right lung base atelectasis. No pleural effusion or mediastinal shift.
Echo:
PFT's:
Reports and relevant images were personally reviewed.
Total time spent on this consultation __44__ minutes which includes review of history, physical exam, medications, laboratory data, personal review of imaging, extensive review of outpatient records, discussion with care team and respiratory therapy.
Subjective Data
-
Date of Service:
Date of Service: March 05, 2025
Chief Complaint: Pulmonary Follow Up
Subjective:
Patient seen and evaluated this morning (late note entry). CXR shows minimal right apical pneumothorax with chest tube in place. He has an air leak (level 1) with suction applied, and when suction is clamped there is no airleak during tidal
breathing or with light cough. He feels well with no chest pain, TUCKER, nausea, fevers or chills.
Review of Systems
General: Other (Negative unless mentioned above)
Objective Data
Data Reviewed
Vital Signs / I&O / Oxygen:
Vital Signs
Temp Pulse Resp BP Pulse Ox
97.7 F 62 18 113/65 100
03/05/25 07:00 03/05/25 07:00 03/05/25 07:00 03/05/25 07:00 03/05/25 07:00
Intake and Output
03/04/25 03/05/25 03/06/25
06:59 06:59 06:59
Intake Total 1440 / 1440 480 / 480
Output Total 0 / 0 1302 / 1302
Balance 1440 / 1440 -822 / -822
SaO2 100
Nasal Cannula flow liters per 6
minute
Physical Exam
General: Respiratory Distress (n), Comfortable, Chills (n) and Sweats (n)
HEENT: Normocephalic and Anicteric
Cardiovascular: S1-S2 and Peripheral Edema (n)
Respiratory: Wheeze (Occasionally heard during expiration at anterior right hemithorax), Crackles (Lateral right hemithorax), Rhonchi (n), Non-Labored Respirations and Chest Tube (Right hemithorax with level 1 airleak with normal tidal expiration
and no air leak with light cough with suction off (previously had level 5 airleak leak with forced expiration))
GI: Soft, Non Distended, Non Tender and Normal Bowel Sounds
Neurology: AO x 3 and Tremors (n)
Skin: Warm, Dry, Good Color and Cyanosis (n)
Labs/Micro/Reports
Lab Data
03/05/25 06:04
03/05/25 06:04
[2025-03-05] MEDS: LOVENOX 40 MG SC (17:08)
[2025-03-05 23:00] VITALS: BP 106/63
[2025-03-06] MEDS: DILAUDID 0.5 MG IV ×4 (00:53→20:24)
[2025-03-06 07:00] VITALS: BP 110/59
[2025-03-06] MEDS: FLOMAX 0.4 MG PO (07:27)
[2025-03-06] MEDS: PROTONIX 40 MG PO ×2 (07:27→20:08)
[2025-03-06] MEDS: NICODERM TRANSDERMAL 14 MG TRANSDERM (07:27)
--- NOTE | 2025-03-06 10:56 | W.PN.HOSP.TC ---
Today's Communication/Plan
-
10% pneumothorax on XR
cont suction
Assessment / Plan
Assessment / Plan
24yo M with PMHX of anxiety, medical marijuana use, nicotine dependency came with sharp constant R chest pain worse with respiration, found large R sided pneumothorax. No recent trauma to the chest noted. PAtient remained well saturating on RA in
ED. Chest tube placed, lung reexpanded, but air leak persisted
A/P:
#Spontaneous R pneumothorax
Chest tube placed by IRAD and water seal to low intermittent suction,
Pulm consult
quit smoking
Serial CXR
Pain mgmt
Air leak test upon reexpansion and plan for chest tube removal
Avoid air travel for few months
Chest tube repositioned as per results of CT chest on 03/04/25
CTX involved: cont continuous suctioning - dont disconnect from suction and follow recovery in few days, if unsuccessful - will need intervention
#Anxiety with situational acute urinary retention
[facility] per urology
Previously able to urinate in the bathroom, but now due to continuous suctioning - has to do it bedside. Has Hx of urination anxiety.
TOV when off suctioning
#Nicotine dependency
Nicoderm patch
#Anxiety
using medical marijuana - smokes
advised to stop/look for alternative - non-inhalation delivery method
DVT ppx Lovenox
Full code
I have spent at least 51min reviewing chart, test results, communication with consultants, father and mother bedside and providing direct patient care
Anticipated Discharge: > 48 hours
Subjective/Interval History
-
Date of Service: March 06, 2025
Objective Data
-
Vital Signs:
Vital Signs
Temp Pulse Resp BP Pulse Ox
98.2 F 60 18 110/59 100
03/06/25 07:00 03/06/25 07:00 03/06/25 07:00 03/06/25 07:00 03/06/25 07:00
I&O
03/05/25 03/06/25 03/07/25
06:59 06:59 06:59
Intake Total 480 / 480 1919
Output Total 1302 / 1302 2062
Balance -822 / -822 -143 / -143
Review of Systems
-
History Source: Patient
All other systems: Reviewed and negative
Physical Exam
-
General: No Apparent Distress
HEENT: Normocephalic
Respiratory: Clear to Auscultation
Genito-urinary: Farris
Neuro: Awake, Alert, Oriented and AO x 3
Psych: Calm
[2025-03-06 15:00] VITALS: BP 108/68
[2025-03-06] MEDS: MORPHINE SULFATE 2 MG IV (16:20)
--- NOTE | 2025-03-06 16:22 | W.PN.PUL3 ---
Today's Communication / Plan
-
Chest tube with ongoing intermittent leaking, suction remains, now at -[id number]
CT chest reviewed showing RUL 2.3 cm bullae with mild paraseptal emphysema in the anteromedial apical upper lobes with persistent ptx
Would place onto supplemental O2 to maintain hyperoxia
Reviewed case with IR, CTS - -> CT surgery recommends to maintain on CWS throughout the weekend
If airleak persists by tomorrow, would recommend upsizing chest tube if surgery agrees
Pain management
Daily CXR
Pulmonary service will continue to follow along
Assessment
-
24-year-old male with previous history of anxiety, current smoker presenting with acute onset right sided chest pain with shortness of breath. Chest x-ray demonstrating large right-sided pneumothorax with tension. Underwent urgent chest tube
placement on 03/02/2025 by IR with complete resolution. Never had pneumothorax before, denies prior known history of lung disease. Current half pack-a-day smoker. We are consulted for evaluation 03/02/25.
Spontaneous pneumothorax, R s/p chest tube 03/02/25
Current smoker with history of vaping and THC use
R sided chest pain, SOB
Conditions present prior to admission
Alcohol intoxication, ER visit 2017, ETOH level 241
Anxiety
Medical THC use
Plan
No oxygen was needed on admission, currently saturating >90% on RA
No prior history of lung disease is noted
Recommend to start supplemental O2 to maintain hyperoxia for nitrogen washout
He is a current smoker, THC user as well--discussed smoking cessation
CXR/CT obtained indicating large R sided ptx, s/p small bore 14 Fr chest tube placement by IR 03/02
Continued on suction, repeat CXR on AM of 03/05 shows small apical right pneumothorax, and there has been a level 1 air leak with expiration since 03/05, although improved compared to 03/03
Not appropriate yet to place chest tube on to waterseal
CT chest imaging obtained with persistent ptx, suction increased to -30; chest tube remains in good position
Suction changed to -[id number] today (03/06) due to worsening R-sided PTX on imaging with mild mediastinal shift from right to left
Reviewed case with CT surgery -- recs appreciated; no acute cardiothoracic intervention needed at this time
Smoking history noted - 0.5 - 1 PPD x 6 years
He says that he was dabbing THC 1-2 days prior to his PTX developing, and he had coughed while dabbing - I believe this is what caused his PTX
Avoid incentive spirometer for now as this can worsen his right-sided pneumothorax
Smoking cessation recommended, he is on patch daily
We discussed use of SL/PO THC rather than inhaled for medical usage
Will need outpatient pulmonary evaluation in our office for PFTs and 6MWT
Reviewed plan with patient and answered all questions.
Pulmonary service will continue to follow along
We will follow
Diagnostic Data
Chest X-Ray: 03/02/25-Large right-sided pneumothorax. Slight shift of the mediastinum toward the left, indicating a degree of tension.
CT Scan: 03/04/25- Right chest tube catheter in place. Moderate right pneumothorax. Associated mild posterior right lung base atelectasis. No pleural effusion or mediastinal shift.
Echo:
PFT's:
Reports and relevant images were personally reviewed.
Total time spent on this consultation __38__ minutes which includes review of history, physical exam, medications, laboratory data, personal review of imaging, extensive review of outpatient records, discussion with care team and respiratory therapy.
Subjective Data
-
Date of Service:
Date of Service: March 06, 2025
Chief Complaint: Pulmonary Follow Up
Subjective:
Patient seen today at bedside (late note entry). Currently on room air breathing comfortably. CXR earlier today showed worsening right-sided pneumothorax and the thoracostomy tubing had to be adjusted/secured with repeat CXR later this afternoon
showing significant improvement in right-sided pneumothorax. He continues to have a level 1 airleak with a light cough while on suction, which is now at -[id number].
Review of Systems
General: Other (Negative unless mentioned above)
Objective Data
Data Reviewed
Vital Signs / I&O / Oxygen:
Vital Signs
Temp Pulse Resp BP Pulse Ox
98.2 F 60 18 110/59 100
03/06/25 07:00 03/06/25 07:00 03/06/25 07:00 03/06/25 07:00 03/06/25 07:00
Intake and Output
03/05/25 03/06/25 03/07/25
06:59 06:59 06:59
Intake Total 480 / 480 0 / 0
Output Total 1302 / 1302 2062 / 2062
Balance -822 / -822 -143 / -143
SaO2 100
Nasal Cannula flow liters per 6
minute
Physical Exam
General: Respiratory Distress (n), Comfortable, Chills (n) and Sweats (n)
HEENT: Normocephalic and Anicteric
Cardiovascular: S1-S2 and Peripheral Edema (n)
Respiratory: Wheeze (Occasionally heard during expiration at anterior right hemithorax), Crackles (Lateral right hemithorax), Rhonchi (n), Non-Labored Respirations and Chest Tube (Right hemithorax with level 1 airleak with normal tidal expiration
and no air leak with light cough with suction briefly clamped (previously had level 5 airleak leak with forced expiration))
GI: Soft, Non Distended, Non Tender and Normal Bowel Sounds
Neurology: AO x 3 and Tremors (n)
Skin: Warm, Dry, Good Color and Cyanosis (n)
Labs/Micro/Reports
Lab Data
03/05/25 06:04
03/05/25 06:04
[2025-03-06] MEDS: LOVENOX 40 MG SC (17:29)
[2025-03-06] MEDS: MELATONIN 5 MG PO (22:52)
[2025-03-06 23:00] VITALS: BP 113/65
[2025-03-06 23:42] VITALS: BP 113/65
[2025-03-07] MEDS: DILAUDID 0.5 MG IV ×4 (00:26→21:55)
--- NOTE | 2025-03-07 02:48 | PTCARENOTE ---
while assessing patient at beginning of shift this RN noted that suction on chest tube was set at -40cm of water and connected to suction via a canister. orders for chest tube are -30cm of water for suction. patient stated to this RN that a 'surgeon
changed his suction to -40 and connected to suction canister and did not want it being touched'. Tere ANDRADE notified of indiscrepancy between chest tube set up and orders. CARROT GRADER INSPECTOR at bedside to assess patient. CARROT GRADER INSPECTOR advised this RN to keep
chest tube settings as is. POC ongoing.
--- NOTE | 2025-03-07 06:27 | PTCARENOTE ---
no new output from R chest tube this shift. RAYMOND Espinosa notified. POC ongoing.
[2025-03-07 07:00] VITALS: BP 120/60
--- NOTE | 2025-03-07 07:30 | W.PN.UPDATE ---
Update Note
Progress Note Update
pt stable
montes de oca in place- urine clear and on flomax
when off tube suction (and able to ambulate) plan montes de oca removal for TOV
[2025-03-07] MEDS: FLOMAX 0.4 MG PO (08:56)
[2025-03-07] MEDS: PROTONIX 40 MG PO ×2 (08:56→20:51)
[2025-03-07] MEDS: NICODERM TRANSDERMAL 14 MG TRANSDERM (08:58)
[2025-03-07] MEDS: MORPHINE SULFATE 2 MG IV ×2 (10:07→14:41)
--- NOTE | 2025-03-07 10:27 | W.PN.HOSP.TC ---
Today's Communication/Plan
-
tube mgmt as per CTS.
TOV when chest tube removed
Assessment / Plan
Assessment / Plan
24yo M with PMHX of anxiety, medical marijuana use, nicotine dependency came with sharp constant R chest pain worse with respiration, found large R sided pneumothorax. No recent trauma to the chest noted. PAtient remained well saturating on RA in
ED. Chest tube placed, lung reexpanded, but air leak persisted
A/P:
#Spontaneous R pneumothorax
Chest tube placed by IRAD and water seal to low intermittent suction,
Pulm consult
quit smoking
Serial CXR
Pain mgmt
Air leak test upon reexpansion and plan for chest tube removal
Avoid air travel for few months
Chest tube repositioned as per results of CT chest on 03/04/25
CTX involved: cont continuous suctioning - dont disconnect from suction and follow recovery in few days, if unsuccessful - will need intervention
#Anxiety with situational acute urinary retention
Farris per urology
Previously able to urinate in the bathroom, but now due to continuous suctioning - has to do it bedside. Has Hx of urination anxiety.
TOV when off suctioning
#Nicotine dependency
Nicoderm patch
#Anxiety
using medical marijuana - smokes
advised to stop/look for alternative - non-inhalation delivery method
DVT ppx Lovenox
Full code
I have spent at least 51min reviewing chart, test results, communication with consultants, father and mother bedside and providing direct patient care
Anticipated Discharge: 24 - 48 hours
Subjective/Interval History
-
Date of Service: March 07, 2025
Objective Data
-
Vital Signs:
Vital Signs
Temp Pulse Resp BP Pulse Ox
98.0 F 69 16 120/60 100
03/07/25 07:00 03/07/25 07:00 03/07/25 07:00 03/07/25 07:00 03/07/25 07:00
I&O
03/06/25 03/07/25 03/08/25
06:59 06:59 06:59
Intake Total 1919 1200 / 1200
Output Total 2062 1013 / 1013
Balance -143 / -143 187 / 187
Review of Systems
-
History Source: Patient
All other systems: Reviewed and negative
Physical Exam
-
General: No Apparent Distress
Respiratory: Clear to Auscultation
Cardiac: Regular Rhythm
GI: Soft
Genito-urinary: Farris
Neuro: Awake, Alert, Oriented and AO x 3
Psych: Calm
--- NOTE | 2025-03-07 14:06 | W.PN.PUL3 ---
Today's Communication / Plan
-
Continue chest tube to suction
Daily chest x-ray
Wait for surgical input-patient contemplating VATS.
If no plans for surgery will consider waterseal and subsequent chest tube clamping and discontinuation of chest tube.
Total smoking cessation recommended again
Will follow
Assessment
-
24-year-old male with previous history of anxiety, current smoker presenting with acute onset right sided chest pain with shortness of breath. Chest x-ray demonstrating large right-sided pneumothorax with tension. Underwent urgent chest tube
placement on 03/02/2025 by IR with complete resolution. Never had pneumothorax before, denies prior known history of lung disease. Current half pack-a-day smoker. We are consulted for evaluation 03/02/25.
Spontaneous pneumothorax, R s/p chest tube 03/02/25
Current smoker with history of vaping and THC use
R sided chest pain, SOB
Conditions present prior to admission
Alcohol intoxication, ER visit 2017, ETOH level 241
Anxiety
Medical THC use
Plan
No oxygen was needed on admission, currently saturating >90% on RA
No prior history of lung disease is noted
Continue supplemental oxygen for now.
He is a current smoker, THC user as well--discussed smoking cessation-he states that he will not smoke anymore.
CXR/CT obtained indicating large R sided ptx, s/p small bore 14 Fr chest tube placement by IR 03/02
Continued on suction, repeat CXR on AM of 03/05 shows small apical right pneumothorax, and there has been a level 1 air leak with expiration since 03/05, although improved compared to 03/03
Few days ago did not tolerate waterseal.
Chest tube has been to suction-to my evaluation this afternoon 03/07/2025 no airleak.
Repeat chest x-ray this morning lung stopped-right apical bleb noted.
-
Keep chest tube to suction for today
Repeat chest x-ray tomorrow morning
CT chest noted with right apical bleb. Minimal left apical paraseptal emphysema.
CT surgery following the patient. Patient states that she is contemplating VATS-Will discuss with primary tonight 03/07/2025.
If no surgical intervention planned can consider waterseal tomorrow and eventual clamping to discontinuation of chest tube.
Smoking history noted - 0.5 - 1 PPD x 6 years
He says that he was dabbing THC 1-2 days prior to his PTX developing, and he had coughed while dabbing - I believe this is what caused his PTX
Avoid incentive spirometer for now as this can worsen his right-sided pneumothorax
Smoking cessation recommended, he is on patch daily
We discussed use of SL/PO THC rather than inhaled for medical usage
Will need outpatient pulmonary evaluation in our office for PFTs and 6MWT
Reviewed plan with patient and answered all questions.
Pulmonary service will continue to follow along
We will follow
Diagnostic Data
Chest X-Ray: 03/02/25-Large right-sided pneumothorax. Slight shift of the mediastinum toward the left, indicating a degree of tension.
CT Scan: 03/04/25- Right chest tube catheter in place. Moderate right pneumothorax. Associated mild posterior right lung base atelectasis. No pleural effusion or mediastinal shift.
Echo:
PFT's:
Reports and relevant images were personally reviewed.
Total time spent on this consultation __39__ minutes which includes review of history, physical exam, medications, laboratory data, personal review of imaging, extensive review of outpatient records, discussion with care team and respiratory therapy.
Subjective Data
-
Date of Service:
Date of Service: March 07, 2025
Chief Complaint: Pulmonary Follow Up
Subjective:
Patient offers no pulmonary complaints
Denies any chest pain
Denies shortness of breath
Objective Data
Data Reviewed
Vital Signs / I&O / Oxygen:
Vital Signs
Temp Pulse Resp BP Pulse Ox
98.0 F 69 16 120/60 100
03/07/25 07:00 03/07/25 07:00 03/07/25 07:00 03/07/25 07:00 03/07/25 10:59
Intake and Output
03/06/25 03/07/25 03/08/25
06:59 06:59 06:59
Intake Total 1919 / 1919 1200 / 1200
Output Total 2062 1013 / 1013
Balance -143 / -143 187 / 187
SaO2 100
Nasal Cannula flow liters per 2
minute
Physical Exam
General: Respiratory Distress (n), Comfortable, Chills (n) and Sweats (n)
HEENT: Normocephalic and Anicteric
Cardiovascular: S1-S2 and Peripheral Edema (n)
Respiratory: Wheeze (Occasionally heard during expiration at anterior right hemithorax), Crackles (Lateral right hemithorax), Rhonchi (n), Non-Labored Respirations and Chest Tube (Right hemithorax with level 1 airleak with normal tidal expiration
and no air leak with light cough with suction briefly clamped (previously had level 5 airleak leak with forced expiration))
GI: Soft, Non Distended, Non Tender and Normal Bowel Sounds
Neurology: AO x 3 and Tremors (n)
Skin: Warm, Dry, Good Color and Cyanosis (n)
Labs/Micro/Reports
Lab Data
03/05/25 06:04
03/05/25 06:04
[2025-03-07 15:00] VITALS: BP 129/70
--- NOTE | 2025-03-07 16:06 | CM ---
CM met with Hipolito ('Yeison')this afternoon. He will be going for a VATs procedure tomorrow. I discussed my role and availability to assist with any discharge needs. Yeison anticipates being discharged to home with no needs.
Plan: CM will contionue to follow to coordinate any post-op needs identified.
--- NOTE | 2025-03-07 16:24 | W.PN.UPDATE ---
Update Note
Progress Note Update
I have seen and examined the patient and reviewed all relevant imaging and data. This is a 24yo male with first time occurrence of spontaneous pneumothorax, first occurred Friday 03/02. He has history of smoking/vaping and using medical marijuana
which he reports inhalational use. Pneumothorax is being managed conservatively with some improvement now, there was some issue with his chest tube not being functional but now seems to be working. He has no airleak on my examination with chest tube
to -20 suction. I discussed with him the options of continuing on with medical management that would require clamp trial prior to tube removal vs VATS bleb resection with pleurodesis. I think either is resonable given no air leak today and lung up
on CXR, however with the blebs in his apex he would have reason for recurrence and would be reasonable to remove the diseased lung to minimize his risk. I discussed this with his mother as well and have answered all their questions. Seems they are
leaning toward surgical intervention which we can offer tomorrow morning.
--- NOTE | 2025-03-07 16:37 | W.PN.UPDATE ---
Update Note
Progress Note Update
Patient was seen Dr. Khan. No air leak was observed. CAT scan was discussed with the patient and how he has a bleb. It was discussed with the patient that due to this bleb he would be at risk for another spontaneous pneumothorax. Due to this
risk he was offered a VATS/pleurodesis with Dr. Kahn. After discussion with his parents, patient was amendable to surgery. Patient will be taken to the OR on Saturday, March 08, 2025. Preoperative orders and labs were placed. Patient will be
transferred to CVICU for preoperative prep. Consent to be obtained.
[2025-03-07 17:32] VITALS: BP 106/79
--- NOTE | 2025-03-07 17:38 | PTCARENOTE ---
Received pt from [facility] [address] [facility] RN. Ambulated on portable suction from stretcher. Chest tube placed to -20 cm suction. No air leak or crepitus noted. Room air 95%. SR on monitor. VSS. Family at bedside.
[2025-03-07 20:00] VITALS: BP 126/70
--- NOTE | 2025-03-07 20:26 | PTCARENOTE ---
Received pt from day shift RN at 1900. Pt Aox4, pupils 3 equal reactive, moves all extremities, complains of R side/chest pain 5/10 w/deep breaths. NSR HR 70s, BP 126/70, palpable pulses, no edema. Resp, lung sounds dim on R side, R CT, -20 wall
suction, no air leak, no crepitus, serous drainage. Normoactive bowel sounds, montes de oca draining clr yellow urine. Skin grossly intact, ct site dressing CDI. PIV x1, no gtt. See flowsheets for further documentation.
[2025-03-07 22:07] VITALS: BP 128/76
--- NOTE | 2025-03-07 23:49 | PTCARENOTE ---
Pt reassessment unchanged, VSS, NSR Hr 60-70s. Pt clipped and prep per protocol, 4% chlorhexidine bath given, montes de oca care completed, CT dressing changed, IV dilaudid 0.5mg given for pain control, pt now sleeping.
[2025-03-08] VITALS (25 sets, daily range): BP systolic 86–138; BP diastolic 61–87; BMI 19.3
[2025-03-08] MEDS: DILAUDID 0.5 MG IV ×3 (03:15→15:56)
[2025-03-08 03:16] LABS: Hematocrit 40.8 % (39.0-52.0); Hemoglobin 14.0 g/dL (13.0-18.0); Mean Corp Hgb Conc. 34.3 g/dL (33.0-37.0); Mean Corpuscular Volume 88.9 fL (80.0-94.0); Platelet Count 217 10^3/uL (130-400); Red Cell Dist. Width 11.5 % (11.5-14.5)
[2025-03-08 03:29] LABS: INR 1.11; PT 14.5 Sec (11.4-14.6)
[2025-03-08 03:30] LABS: APTT 35.7 Sec (23.4-35.0)
[2025-03-08 03:42] LABS: Blood Urea Nitrogen 16 mg/dl (9-20); Calcium 9.2 mg/dl (8.4-10.2); Carbon Dioxide 30 mmol/L (22-30); Chloride 101 mmol/L (98-107); Estimated Creatinine Clearance 111 ml/min; Glucose 99 mg/dl (70-99); Magnesium 2.1 mg/dl (1.6-2.3); Potassium 4.3 mmol/L (3.5-5.1); Sodium 136 mmol/L (135-145); eGFR > 60.00
--- NOTE | 2025-03-08 04:30 | PTCARENOTE ---
Pt refuses discontinuation of montes de oca catheter, stating he is worried he will not be able to 'pee in public' and have catheter reinserted. Discussed need to d/c montes de oca as catheter is portal of entry for infection. Discussed with PA> PA at bedside to
also talk with pt about d/c'ing montes de oca. Pt refuses, he is very anxious. PA agreed to have team see pt this am.
--- NOTE | 2025-03-08 04:33 | PTCARENOTE ---
Pt reassessment unchanged, SB-SR 50-60s, IV dilaudid given for R side chest pain. CHG bath completed. Plan for VATs this am.
--- NOTE | 2025-03-08 06:02 | PTCARENOTE ---
Pt 2nd CHG bath complete, new linens, gown, and tele leads. L and R BP complete, CT PA made aware of the difference between them, no intervention.
--- NOTE | 2025-03-08 06:55 | W.CVOR.SURPR ---
CVOR Surgeon Immed Pre Op
-
I have examined this patient prior to performance of the scheduled procedure.
The patient's condition is unchanged from the time of the dictated/written History and
Physical and the patient is able to undergo the scheduled procedure.
[2025-03-08] MEDS: ANCEF IV (08:45)
--- NOTE | 2025-03-08 09:54 | CM ---
Addendum entered by Nicci Jerry RN 03/08/25 14:20:
Spoke with patient and his mom. Reviewed postop restrictions and plan of care. Plan is for the patient to return home with CT Transitional RN.
Original Note:
Chart reviewed. Patient is in the OR today. Patient is independent of ADLS, lives with his parents in a 2 [address], 1 SANDY, 0 DME. Plan is for the patient to return home with CT Transitional RN. CM to follow
--- NOTE | 2025-03-08 10:18 | W.PN.CT.SURG ---
CT Surgery Operative Note
-
THORACIC SURGERY OPERATIVE REPORT
Preoperative Diagnosis: Right spontaneous pneumothorax
Postoperative Diagnosis: Same
Procedure(s) Performed:
1. Video-assisted thoracoscopic surgery
2. Right upper lobe bleb/wedge resection
3. Mechanical pleurodesis
Date of Surgery: 03/08/2025
Comorbidities:
1. Current smoker
Attending Surgeon: Elsi Khan MD, MPH
Assistants: Purvi Painting PA-C (present and necessary to medical services assistant, exchanging robotic instruments, retraction, suction, exposure, suture management, and wound closure under my direction)
Anesthesiology: Tommy Steve MD and Rinku Mcdaniels CRNA
Scrub and Circulating RNs: Esther Casas RN, Bandar Mcgowan RN
Anesthesia: Dual Lumen GETA
EBL: 75 cc
Products: None
Indication(s) for Procedures: 24-year-old male with first occurrence of spontaneous pneumothorax, history of current smoking and CT scan with significant blebs and a right upper lobe.
Findings: 1 large bleb in the right upper lobe surrounded by a cluster of smaller blebs. Lung otherwise healthy and normal-appearing without any obvious disease seen elsewhere.
Specimen(s):
Right upper lobe wedge
Description of Procedure: The patient was taken to the operating room. Induction via general anesthesia with endotracheal intubation was performed and peripheral venous access and arterial monitoring were inserted. Their identity and procedure to be
performed were verified and they were positioned with the right side up on the operating table. The patient was then prepped and draped in a sterile fashion. A preoperative time-out was performed with all members of the team present. A 5 mm port
was placed in the existing 14 English chest tube insertion site at approximately the seventh intercostal space. It was confirmed that we are within the chest cavity and the lung was appropriately deflated. We then created a 5 cm incision in the
fifth intercostal space anteriorly to use as our working port. An Curly wound retractor was placed in this incision.
The entire right lung and thoracic cavity was inspected for disease. No evidence of disease throughout the thoracic cavity, there was a large bleb at the apex in the right upper lobe that was surrounded by smaller cluster of diseased lung. Using 3
staple fires we removed the diseased area in its entirety and sent the specimen off for permanent pathology. Next we performed mechanical pleurodesis throughout the entire chest cavity with good result. Pro-gel was used to reinforce the staple
lines and two chest tubes were placed under direct visualization leading to the apex anteriorly with a 28 English straight tube and a 24 English Kirill placed in the diaphragmatic recess more posteriorly. After confirming hemostasis, the lung was fully
inflated and camera port was removed. Incision was closed in 3 layers including the fascia, dermal, and epidermis. Additional local anesthesia was injected into all incision sites. The skin wound was cleansed and sealed with Dermabond glue.
All instrument, sponge, and needle counts were confirmed to be correct x 2 at the end of the operation. The patient was transferred to the cardiac intensive care unit extubated in critical but stable condition.
I, Dr. Elsi Khan, was present, scrubbed for, and performed all critical elements of this procedure.
Elsi Khan MD, MPH
Cardiothoracic Surgeon
[facility]
This operative dictation was created using the [employer] dictation system. Please excuse any grammatical, typographical, or 'sound alike' errors
--- NOTE | 2025-03-08 10:33 | W.PN.INTV ---
Today's Communication / Plan
Recommendations
Postop management per team
Chest tube without airleak, maintained on suction
Pain control
Daily CXR
Reviewed with mother at bedside
Assessment
-
24-year-old male with previous history of anxiety, current smoker presenting with acute onset right sided chest pain with shortness of breath. Chest x-ray demonstrating large right-sided pneumothorax with tension. Underwent urgent chest tube
placement on 03/02/2025 by IR with complete resolution. Never had pneumothorax before, denies prior known history of lung disease. Current half pack-a-day smoker. We are consulted for evaluation 03/02/25.
Spontaneous pneumothorax, R s/p chest tube 03/02/25, persistent
s/p 1. Video-assisted thoracoscopic surgery 2. Right upper lobe bleb/wedge resection 3. Mechanical pleurodesis 03/08/25
Current smoker with history of vaping and THC use
R sided chest pain, SOB
Conditions present prior to admission
Alcohol intoxication, ER visit 2017, ETOH level 241
Anxiety
Medical THC use
Plan
No oxygen was needed on admission, currently saturating >90% on RA
No prior history of lung disease is noted
Continue supplemental oxygen for now.
He is a current smoker, THC user as well--discussed smoking cessation-he states that he will not smoke anymore.
CXR/CT obtained indicating large R sided ptx, s/p small bore 14 Fr chest tube placement by IR 03/02
Continued on suction, repeat CXR on AM of 03/05 shows small apical right pneumothorax, and there has been a level 1 air leak with expiration since 03/05, although improved compared to 03/03
Few days ago did not tolerate waterseal.
Chest tube has been to suction-to my evaluation this afternoon 03/07/2025 no airleak.
Repeat chest x-ray this morning lung stopped-right apical bleb noted.
Appreciate CTS eval
CT chest noted with right apical bleb. Minimal left apical paraseptal emphysema.
CT surgery following the patient.
Underwent Video-assisted thoracoscopic surgery/Right upper lobe bleb/wedge resection/Mechanical pleurodesis 03/08/25, transferred to CVICU
Further postop management per team
Smoking history noted - 0.5 - 1 PPD x 6 years
He says that he was dabbing THC 1-2 days prior to his PTX developing, and he had coughed while dabbing - I believe this is what caused his PTX
Smoking cessation recommended, he is on patch daily
We discussed use of SL/PO THC rather than inhaled for medical usage
Will need outpatient pulmonary evaluation in our office for PFTs and 6MWT
Reviewed plan with patient and answered all questions.
Pulmonary service will continue to follow along
We will follow
Diagnostic Data
Chest X-Ray: 03/02/25-Large right-sided pneumothorax. Slight shift of the mediastinum toward the left, indicating a degree of tension.
CT Scan: 03/04/25- Right chest tube catheter in place. Moderate right pneumothorax. Associated mild posterior right lung base atelectasis. No pleural effusion or mediastinal shift.
Echo:
PFT's:
Reports and relevant images were personally reviewed.
Critical Care time 45 mins -- The patient is admitted for acute critical illness for the treatment of vital organ failure and/or prevention of further life-threatening conditions. Total care includes time spent in review of history, physical exam,
medications, hemodynamic/ventilator parameters, laboratory data, imaging and discussion with house staff, pharmacy, respiratory therapy, cooling room attendant, and nursing.
Subjective Dataa
Subjective Data
Date of Service:
Date of Service: March 08, 2025
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
Subjective:
Transferred to CVICU, postop
Mother at bedside
Objective Data
Data Reviewed
Vital Signs / I&O / Oxygen:
Vital Signs
Temp Pulse Resp BP Pulse Ox
98.2 F 69 16 94/62 99
03/08/25 06:01 03/08/25 06:00 03/08/25 06:01 03/08/25 05:34 03/08/25 06:01
Intake and Output
03/07/25 03/08/25 03/09/25
06:59 06:59 06:59
Intake Total 1200 / 1200
Output Total 1013 / 1013 905 / 905
Balance 187 / 187 -905 / -905
SaO2 99
Nasal Cannula flow liters per 2
minute
Physical Exam
General: Comfortable and Other (NAD)
HEENT: Normocephalic, Anicteric and Moist Mucous Membranes
Cardiovascular: S1-S2 and Regular Rhythm
Respiratory: Clear, Non-Labored Respirations and Chest Tube
GI: Soft, Non Distended and Non Tender
Neurology: Awake, Alert, Oriented and No Motor Deficits
Skin: Warm, Dry and Good Color
Labs/Micro/Reports
Lab Data
03/08/25 02:51
03/08/25 02:51
Laboratory Results
03/08/25
02:51
PT 14.5
INR 1.11
APTT 35.7 H
[2025-03-08] MEDS: DILAUDID 0.25 MG IV (11:12)
[2025-03-08] MEDS: ANCEF 10 IV (11:47)
[2025-03-08] MEDS: PROTONIX 40 MG PO ×2 (11:53→19:53)
[2025-03-08] MEDS: NICODERM TRANSDERMAL 14 MG TRANSDERM (11:53)
[2025-03-08] MEDS: FLOMAX 0.4 MG PO (11:53)
--- NOTE | 2025-03-08 12:45 | PTCARENOTE ---
pt report received from PACU. pt oriented, PHYSICAL THERAPY ASSISTANT INSTRUCTOR aware of pain. PRN pain meds given. SR on the monitor, HR 60-70s. SBP 120s via cuff, [place] SBP 120-150s, PHYSICAL THERAPY ASSISTANT INSTRUCTOR aware of difference. palpable pulses, no edema. pt on 2LNC, 97-98% POX. lungs diminished.
shallow breathing. IS encouraged, 500ml. CTx2, no air leak or crepitus. pt abdomen s/n, denies n/v. tolerating sips and chips. hypoactive BS. Farris in place, clear yellow urine. surgical site intact. chest tube sites c/d/i. PIV x2. L radial Renay
flushed, zeroed, and calibrated. see worklist for VS, I&O, and assessment.
[2025-03-08] MEDS: TYLENOL 1000 MG PO (13:59)
[2025-03-08] MEDS: ROXICODONE 5 MG PO (14:34)
[2025-03-08] MEDS: NEURONTIN 100 MG PO (15:55)
[2025-03-08] MEDS: FLEXERIL 5 MG PO (15:55)
[2025-03-08] MEDS: ANCEF 5 IV (15:56)
--- NOTE | 2025-03-08 16:00 | PTCARENOTE ---
pt VSS, no changes in assessment. PRN pain meds given as ordered. mother at bedside.
[2025-03-08] MEDS: ZOFRAN 4 MG IV (17:15)
--- NOTE | 2025-03-08 18:05 | PTCARENOTE ---
Sydnee Niño dc'saroj as ordered. PRN Zofran given for nausea. pt OOB to chair w/ assist.
[2025-03-08] MEDS: DILAUDID 1 MG IV (19:39)
--- NOTE | 2025-03-08 19:45 | PTCARENOTE ---
Report received from KENROY Mayer. Pt assessed, VS done. Helped back to bed with 2 RNs. C/O severe R lateral CP. Dilaudid 1 mg IV given for pain. + relief. Pt with anxiety about pain, care at times. Pt awake, alert, oriented x 4. Speech clear. Equal
strength x 4. Pt on 2L/NC. Sats 99-100%. R lateral CT x 2. Both to -20 cm suction. No crepitus, no tidaling. + air leak, level 1, with coughing, phonation, and breathing. PA aware. BBS present. Decreased B bases. CDB, IS encouraged. IS peak 500 mls.
Pt in SR. Audible heart tones. +2 palpable pulses B radial and DPs. Belly soft, nontender. Hypoactive bs x 4. No n/v. Farris to drain, clear, yellow urine. Father at bedside. PA also in to assess pt. Ongoing plan of care.
[2025-03-08] MEDS: SENOKOT 8.6 MG PO (19:53)
[2025-03-09] VITALS (18 sets, daily range): BP systolic 108–128; BP diastolic 73–86; BMI 18.2
[2025-03-09] MEDS: ROXICODONE 5 MG PO ×4 (00:48→16:35)
--- NOTE | 2025-03-09 01:00 | PTCARENOTE ---
Roxicodone 5 mg for moderate c/o pain to R lateral chest. Other scheduled pain meds given. Pt remains in SR, SB when sleeping. CTs remain to -20 cm suction, sats 99-100% on 2L/NC. Ongoing plan of care.
--- NOTE | 2025-03-09 01:10 | W.PN.CT ---
Today's Communication / Plan
-
-pod #1
-no issues overnight
-2 R pleural CTs on -20 sxn, +1 intermittent air leak with talking and cough, output 50/140 in 12/24 hrs
-follow daily CXR
-pain control (avoid NSAIDs)
-wean off O2 as tolerated - pOx 98% on 2L
-tobacco cessation
-pt is apprehensive about taking out Farris as he has trouble urinating outside of his home- continue Flomax
-encourage OOB
Assessment / Plan
-
- Right spontaneous pneumothorax- s/p Video-assisted thoracoscopic surgery; Right upper lobe bleb/wedge resection; Mechanical pleurodesis by Dr. Khan on 03/08/25, pod #1
- CT scan with significant blebs in a right upper lobe.
- Current smoking
- Hx anxiety - uses medical marijuana
Discussed patient care with: Nursing and Care Team
Subjective
-
Date of Service: March 09, 2025
Objective Data
-
PT 14.5 Sec (11.4-14.6) 03/08/25 02:51
INR 1.11 03/08/25 02:51
APTT 35.7 Sec (23.4-35.0) H 03/08/25 02:51
Vital Signs
Vital Signs
Temp Pulse Resp BP Pulse Ox
97.8 F 58 13 115/76 99
03/08/25 20:00 03/09/25 00:30 03/09/25 00:30 03/09/25 00:00 03/09/25 00:30
CT Intake/Output/Weight
03/08/25 03/08/25 03/09/25
06:59 18:59 06:59
Intake Total 200 / 200
Output Total 905 / 905 505 / 575 70 / 575
Balance -905 / -905 -305 / -375 -70 / -375
SaO2: 99
Physical Exam
-
General: Awake and AOx3
Cardiovascular: Regular rate & rhythm, No Murmurs and No Rub
Respiratory: Decreased Breath Sounds (no crepitus noted, no wheeze)
Incision: Clean, Dry and Dressing Intact
Extremities: No Edema
Abdomen: soft, nontender, nondistended, + bowel sounds
Data Reviewed
-
Lab Results: Results Reviewed
Medications: Active Meds Reviewed
Chest X-Ray: Report Reviewed and Image Reviewed
ECG: Report Reviewed and Image Reviewed
--- NOTE | 2025-03-09 04:45 | PTCARENOTE ---
Labs drawn and sent.
[2025-03-09] MEDS: DILAUDID 0.5 MG IV ×2 (04:47→06:43)
[2025-03-09 05:14] LABS: Hematocrit 39.8 % (39.0-52.0); Hemoglobin 13.8 g/dL (13.0-18.0); Mean Corp Hgb Conc. 34.7 g/dL (33.0-37.0); Mean Corpuscular Volume 89.8 fL (80.0-94.0); Platelet Count 218 10^3/uL (130-400); Red Cell Dist. Width 11.3 % (11.5-14.5)
[2025-03-09 05:40] LABS: Blood Urea Nitrogen 14 mg/dl (9-20); Calcium 8.9 mg/dl (8.4-10.2); Chloride 98 mmol/L (98-107); Estimated Creatinine Clearance 111 ml/min; Glucose 95 mg/dl (70-99); Magnesium 2.2 mg/dl (1.6-2.3); Potassium 4.7 mmol/L (3.5-5.1); Sodium 134 mmol/L (135-145); eGFR > 60.00
[2025-03-09 05:48] LABS: Carbon Dioxide 32 mmol/L (22-30)
--- NOTE | 2025-03-09 06:45 | PTCARENOTE ---
Pt helped to standing, weighed on scale, then helped to chair. Pt with severe pain. Tearful. Dilaudid 0.5 mg IV given for pain with + relief. Report to Janeen holloway am. Walking rounds done. See VS flowsheet.
[2025-03-09] MEDS: TYLENOL 1000 MG PO ×4 (06:49→22:28)
--- NOTE | 2025-03-09 07:34 | W.PN.INTV ---
Today's Communication / Plan
Recommendations
Doing well, chest tube remains on suction, no airleak
CXR with resolving PTX, apical size noted now, can consider trying waterseal, will defer to team
Pain control otherwise, encouraged OOB, IS
Transferred to tele
Assessment
-
24-year-old male with previous history of anxiety, current smoker presenting with acute onset right sided chest pain with shortness of breath. Chest x-ray demonstrating large right-sided pneumothorax with tension. Underwent urgent chest tube
placement on 03/02/2025 by IR with complete resolution. Never had pneumothorax before, denies prior known history of lung disease. Current half pack-a-day smoker. We are consulted for evaluation 03/02/25.
Spontaneous pneumothorax, R s/p chest tube 03/02/25, persistent
s/p 1. Video-assisted thoracoscopic surgery 2. Right upper lobe bleb/wedge resection 3. Mechanical pleurodesis 03/08/25
Current smoker with history of vaping and THC use
R sided chest pain, SOB
Conditions present prior to admission
Alcohol intoxication, ER visit 2017, ETOH level 241
Anxiety
Medical THC use
Plan
No oxygen was needed on admission, currently saturating >90% on RA
No prior history of lung disease is noted
Continue supplemental oxygen for now.
He is a current smoker, THC user as well--discussed smoking cessation-he states that he will not smoke anymore.
CXR/CT obtained indicating large R sided ptx, s/p small bore 14 Fr chest tube placement by IR 03/02
Continued on suction, repeat CXR on AM of 03/05 shows small apical right pneumothorax, and there has been a level 1 air leak with expiration since 03/05, although improved compared to 03/03
Few days ago did not tolerate waterseal.
Appreciate CTS eval
CT chest noted with right apical bleb. Minimal left apical paraseptal emphysema.
CT surgery following the patient.
Underwent Video-assisted thoracoscopic surgery/Right upper lobe bleb/wedge resection/Mechanical pleurodesis 03/08/25, transferred to CVICU
Further postop management per team
Could consider waterseal trials
Smoking history noted - 0.5 - 1 PPD x 6 years
He says that he was dabbing THC 1-2 days prior to his PTX developing, and he had coughed while dabbing - I believe this is what caused his PTX
Smoking cessation recommended, he is on patch daily
We discussed use of SL/PO THC rather than inhaled for medical usage
Will need outpatient pulmonary evaluation in our office for PFTs and 6MWT
Reviewed plan with patient and answered all questions.
Pulmonary service will continue to follow along
We will follow
Diagnostic Data
Chest X-Ray: 03/02/25-Large right-sided pneumothorax. Slight shift of the mediastinum toward the left, indicating a degree of tension.
CT Scan: 03/04/25- Right chest tube catheter in place. Moderate right pneumothorax. Associated mild posterior right lung base atelectasis. No pleural effusion or mediastinal shift.
Echo:
PFT's:
Reports and relevant images were personally reviewed.
Total time spent on this consultation/encounter __51__ minutes which includes review of history, physical exam, medications, laboratory data, personal review of imaging, extensive review of outpatient records, discussion with care team and
respiratory therapy.
Subjective Dataa
Subjective Data
Date of Service:
Date of Service: March 09, 2025
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
Subjective:
Doing well now, stable on RA
Chest tube remains on suction
Sitting in chair
Objective Data
Data Reviewed
Vital Signs / I&O / Oxygen:
Vital Signs
Temp Pulse Resp BP Pulse Ox
98 F 63 16 117/76 100
03/09/25 00:00 03/09/25 07:15 03/09/25 07:15 03/09/25 07:00 03/09/25 07:15
Intake and Output
03/08/25 03/09/25 03/10/25
06:59 06:59 06:59
Intake Total 200 / 200
Output Total 905 / 905 1615 / 1615
Balance -905 / -905 -1415 / -1415
SaO2 100
Nasal Cannula flow liters per 2
minute
Physical Exam
General: Comfortable and Other (NAD)
HEENT: Normocephalic, Anicteric and Moist Mucous Membranes
Cardiovascular: S1-S2 and Regular Rhythm
Respiratory: Clear, Non-Labored Respirations and Chest Tube
GI: Soft, Non Distended and Non Tender
Neurology: Awake, Alert, Oriented and No Motor Deficits
Skin: Warm, Dry and Good Color
Labs/Micro/Reports
Lab Data
03/09/25 05:00
03/09/25 05:00
--- NOTE | 2025-03-09 07:40 | W.PN.UPDATE ---
Update Note
Progress Note Update
pt s/p vats/bled resection
chest tubes in place
feels weak today
montes de oca in place- urine clear
on flomax
plan to continue to montes de oca today- when chest tubes out and pt stronger can remove cath for TOV
--- NOTE | 2025-03-09 08:15 | PTCARENOTE ---
Assumed care of patient. Walking rounds completed with previous RN. Pt assessed while he was sitting in the chair. Pt alert and oriented x4. Rates right sided surgical pain 5/10-see MAR. Denies nausea. Weak throughout. Anxious, soft spoken. NSR on
tele with rates in the 60s. BP 113/77. POX 100% on 1L, titrated to RA, POX 100%. Lungs diminished throughout. IS and deep breathing encouraged. No cough noted. Right lateral chest tubes x2 to -20cm suction draining serosanguineous fluid. +1
intermittent air leak. Abdomen soft, flat, nontender. Hypoactive BS. Encouraged diet. Farris catheter intact draining adequate amounts of clear jami urine. CT dressing CDI. Right lateral puncture site approximated, with skin glue, LAZARO. PIV x2
intact. See MAR for medication administration. See worklist for complete nursing assessment. Plan of care reviewed and patient in agreement.
[2025-03-09] MEDS: ANCEF 5 IV ×2 (08:22)
[2025-03-09] MEDS: NICODERM TRANSDERMAL 14 MG TRANSDERM (08:22)
[2025-03-09] MEDS: LIDOCAINE 4% PATCH 1 PATCH TOPICAL (08:22)
[2025-03-09] MEDS: PROTONIX 40 MG PO ×2 (08:23→19:11)
[2025-03-09] MEDS: FLOMAX 0.4 MG PO (08:23)
[2025-03-09] MEDS: FLEXERIL 5 MG PO (08:23)
[2025-03-09] MEDS: SENOKOT 8.6 MG PO ×2 (08:24→19:33)
[2025-03-09] MEDS: NEURONTIN 100 MG PO ×4 (08:24→22:28)
[2025-03-09] MEDS: LASIX 20 MG IV (08:24)
[2025-03-09] MEDS: ZOFRAN 4 MG IV ×2 (09:06→17:14)
--- NOTE | 2025-03-09 11:40 | PTCARENOTE ---
Pt reassessed. NSR on tele with rates in the 80s. BP 110/80. POX 99% on RA. Surgical sites stable. CT output scant. +1 intermittent air leak continues. Farris draining clear yellow urine. Pt ambulating in the room with standby assist. Pt tolerated.
--- NOTE | 2025-03-09 13:26 | PTCARENOTE ---
Pt ambulated in the room from the window to the door x3 pt tolerated.
--- NOTE | 2025-03-09 15:35 | CM ---
Chart reviewed. Patient is independent of ADLS, lives with his parents in a 2 S[address], 1 SANDY, 0 DME. Plan is for the patient to return home with CT Transitional RN. CM to follow
--- NOTE | 2025-03-09 16:30 | PTCARENOTE ---
Pt reassessed. NSR with rates in the 60s-70s. BP 114/79. POX 99% on RA. Surgical sites stable. CT x2 with +1 intermittent air leak maintained. Farris draining adequate amounts of clear yellow urine. No acute changes.
[2025-03-09] MEDS: DILAUDID 1 MG IV (19:10)
[2025-03-09] MEDS: REMOVE LIDOCAINE PATCH 1 PATCH REMOVE (19:11)
--- NOTE | 2025-03-09 19:45 | PTCARENOTE ---
Patient received from RN @ 1900. Patient sitting in chair OOB w/ call kerr in reach. Patient describes pain 12/15. See MAR for details. AOx3. Patient is a stand by assist. SR on monitor. BP 128/86 HR 70. Heart sounds audible. Lungs
diminished in bases bilaterally. POX 100% RA. IS 750. 2x Right lateral CT set to -20 suction draining serosanguineous fluid. +1 intermittent air leak noted. Patient states no nausea and intermittent gas. Bowel sounds hypoactive. Farris
draining clear yellow urine. Farris care performed. Surgical sites all C/D/I. PIV patent and intact. See worklist for more details.
[2025-03-10] VITALS (7 sets, daily range): BP systolic 102–123; BP diastolic 73–83; BMI 18.0
[2025-03-10] MEDS: ROXICODONE 5 MG PO ×2 (01:03→05:53)
--- NOTE | 2025-03-10 01:08 | PTCARENOTE ---
Patient reassessed. SR on monitor. BP 117/83 HR 80 POX 98% RA. Patient states pain is 7/10. See MAR for details.
--- NOTE | 2025-03-10 02:54 | W.PN.CT ---
Today's Communication / Plan
-
Today's Communication / Plan
-pod #2
-no issues overnight
-2 R pleural CTs on -20 sxn, +1 intermittent air leak with talking and cough, output 10/45 in 12/24 hrs
-follow daily CXR
-stable R tiny apical ptx from lung tissue removed
-pain control (avoid NSAIDs)
-weaned off O2 - pOx 100% on RA
-pt is planning to stop any further tobacco or vaping
-Urology following re: Farris, continue Flomax
-encourage OOB
Assessment / Plan
-
- Right spontaneous pneumothorax- s/p Video-assisted thoracoscopic surgery; Right upper lobe bleb/wedge resection; Mechanical pleurodesis by Dr. Khan on 03/08/25, pod #2
- CT scan with significant blebs in a right upper lobe.
- Current smoking
- Hx anxiety - uses medical marijuana
Discussed patient care with: Nursing and Pharmacy
Subjective
-
Date of Service: March 10, 2025
Objective Data
-
Lab Results
03/09/25 05:00
PT 14.5 Sec (11.4-14.6) 03/08/25 02:51
INR 1.11 03/08/25 02:51
APTT 35.7 Sec (23.4-35.0) H 03/08/25 02:51
Vital Signs
Vital Signs
Temp Pulse Resp BP Pulse Ox
98.7 F 86 18 117/83 100
03/09/25 22:32 03/10/25 01:01 03/09/25 22:32 03/10/25 01:01 03/09/25 22:32
CT Intake/Output/Weight
03/09/25 03/09/25 03/10/25
06:59 18:59 06:59
Intake Total 240 / 240
Output Total 1110 / 1615 1360 / 1645 285 / 1645
Balance -1110 / -1415 -1120 / -1405 -285 / -1405
SaO2: 100
Physical Exam
-
General: Awake and AOx3
Cardiovascular: Regular rate & rhythm, No Murmurs and No Rub
Respiratory: Decreased Breath Sounds (no crepitus noted, no wheeze)
Incision: Clean, Dry and Dressing Intact
Abdomen: soft, nontender, nondistended, + bowel sounds
Extremities: No Edema
Data Reviewed
-
Lab Results: Results Reviewed
Medications: Active Meds Reviewed
Chest X-Ray: Report Reviewed and Image Reviewed
CT Scan: Report Reviewed
ECG: Report Reviewed and Image Reviewed
[2025-03-10 04:07] LABS: Blood Urea Nitrogen 20 mg/dl (9-20); Calcium 9.2 mg/dl (8.4-10.2); Carbon Dioxide 34 mmol/L (22-30); Chloride 96 mmol/L (98-107); Estimated Creatinine Clearance 120 ml/min; Glucose 91 mg/dl (70-99); Magnesium 2.1 mg/dl (1.6-2.3); Potassium 4.3 mmol/L (3.5-5.1); Sodium 133 mmol/L (135-145); eGFR > 60.00
--- NOTE | 2025-03-10 04:13 | PTCARENOTE ---
patient reassessed. SR on monitor. BP 113/77 HR 64 POX 96% RA. Patient resting comfortably.
[2025-03-10] MEDS: TYLENOL 1000 MG PO ×3 (05:53→20:35)
[2025-03-10] MEDS: FLEXERIL 5 MG PO (06:43)
--- NOTE | 2025-03-10 06:43 | W.PN.UPDATE ---
Update Note
Progress Note Update
pt still with sig discomfort
chest tubes remain in place
montes de oca in/on flomax/urine clear
discussed with pt- given his pain level he does not feel he will be able to urinate so would like to keep cath in place for today
will continue to monitor and remove when pt feels he is more mobile and in less discomfort
--- NOTE | 2025-03-10 08:00 | PTCARENOTE ---
Assumed care of patient from night warehouse selector RN. AAO x 3 Sitting up in chair. SR on monitor. Room air 100%. Denies cough or sputum. Chest tube x 2 to water seal. No air leak or crepitus noted. Ambulating in room at [facility]. VSS. Plan for day
discussed
[2025-03-10] MEDS: SENOKOT 8.6 MG PO ×2 (08:48→19:13)
[2025-03-10] MEDS: PROTONIX 40 MG PO ×2 (08:48→19:13)
[2025-03-10] MEDS: FLOMAX 0.4 MG PO (08:48)
[2025-03-10] MEDS: NEURONTIN 100 MG PO ×3 (08:48→20:35)
[2025-03-10] MEDS: LIDOCAINE 4% PATCH 1 PATCH TOPICAL (08:48)
[2025-03-10] MEDS: NICODERM TRANSDERMAL 14 MG TRANSDERM (08:49)
[2025-03-10] MEDS: ZOFRAN 4 MG IV (10:22)
--- NOTE | 2025-03-10 11:46 | CM ---
Chart reviewed. Patient OOB sitting in the chair. Patient is independent of ADLS, lives with his parents in a 2 S[place], 1 SANDY, 0 DME. 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 Plan is for the patient to return home with CT Transitional RN. CM to follow
--- NOTE | 2025-03-10 12:00 | PTCARENOTE ---
Pt very tearful this afternoon. Disappointed that Chest tubes not removed today. A lot of education provided to pt , emotional support provided. medicated for pain , vss Will continue to monitor closely.
--- NOTE | 2025-03-10 13:09 | W.PN.PUL3 ---
Today's Communication / Plan
-
Waterseal trials, no airleak, very good tidaling present
No complaints, stable on RA
Urinary retention noted, ongoing management
Encouraged OOB
Further clamp trials as determined by team
Assessment
-
24-year-old male with previous history of anxiety, current smoker presenting with acute onset right sided chest pain with shortness of breath. Chest x-ray demonstrating large right-sided pneumothorax with tension. Underwent urgent chest tube
placement on 03/02/2025 by IR with complete resolution. Never had pneumothorax before, denies prior known history of lung disease. Current half pack-a-day smoker. We are consulted for evaluation 03/02/25.
Spontaneous pneumothorax, R s/p chest tube 03/02/25, persistent
s/p 1. Video-assisted thoracoscopic surgery 2. Right upper lobe bleb/wedge resection 3. Mechanical pleurodesis 03/08/25
Current smoker with history of vaping and THC use
R sided chest pain, SOB
Conditions present prior to admission
Alcohol intoxication, ER visit 2017, ETOH level 241
Anxiety
Medical THC use
Plan
No oxygen was needed on admission, currently saturating >90% on RA
No prior history of lung disease is noted
Continue supplemental oxygen for now.
He is a current smoker, THC user as well--discussed smoking cessation-he states that he will not smoke anymore.
CXR/CT obtained indicating large R sided ptx, s/p small bore 14 Fr chest tube placement by IR 03/02
Continued on suction, repeat CXR on AM of 03/05 shows small apical right pneumothorax, and there has been a level 1 air leak with expiration since 03/05, although improved compared to 03/03
Appreciate CTS eval
CT chest noted with right apical bleb. Minimal left apical paraseptal emphysema.
CT surgery following the patient.
Underwent Video-assisted thoracoscopic surgery/Right upper lobe bleb/wedge resection/Mechanical pleurodesis 03/08/25, transferred to CVICU
Further postop management per team
Waterseal trials
Smoking history noted - 0.5 - 1 PPD x 6 years
He says that he was dabbing THC 1-2 days prior to his PTX developing, and he had coughed while dabbing - I believe this is what caused his PTX
Smoking cessation recommended, he is on patch daily
We discussed use of SL/PO THC rather than inhaled for medical usage
Will need outpatient pulmonary evaluation in our office for PFTs and 6MWT
Reviewed plan with patient and answered all questions.
Pulmonary service will continue to follow along
Diagnostic Data
Chest X-Ray: 03/02/25-Large right-sided pneumothorax. Slight shift of the mediastinum toward the left, indicating a degree of tension.
CT Scan: 03/04/25- Right chest tube catheter in place. Moderate right pneumothorax. Associated mild posterior right lung base atelectasis. No pleural effusion or mediastinal shift.
Echo:
PFT's:
Reports and relevant images were personally reviewed.
Total time spent on this consultation/encounter __40__ minutes which includes review of history, physical exam, medications, laboratory data, personal review of imaging, extensive review of outpatient records, discussion with care team and
respiratory therapy.
Subjective Data
-
Date of Service:
Date of Service: March 10, 2025
Chief Complaint: Pulmonary Follow Up
Subjective:
Doing well on waterseal now, stable on RA
Urinary retention noted
Objective Data
Data Reviewed
Vital Signs / I&O / Oxygen:
Vital Signs
Temp Pulse Resp BP Pulse Ox
98.9 F 84 20 123/77 100
03/10/25 12:59 03/10/25 13:00 03/10/25 12:59 03/10/25 12:40 03/10/25 12:59
Intake and Output
03/09/25 03/10/25 03/11/25
06:59 06:59 06:59
Intake Total 200 / 200 240 / 240 600 / 600
Output Total 1615 / 1615 1820 / 1820 350 / 350
Balance -1415 / -1415 -1580 / -1580 250 / 250
SaO2 100
Nasal Cannula flow liters per 2
minute
Physical Exam
General: Respiratory Distress (n), Comfortable, Chills (n) and Sweats (n)
HEENT: Normocephalic and Anicteric
Cardiovascular: S1-S2 and Peripheral Edema (n)
Respiratory: Wheeze (Occasionally heard during expiration at anterior right hemithorax), Crackles (Lateral right hemithorax), Rhonchi (n), Non-Labored Respirations and Chest Tube (Right hemithorax with level 1 airleak with normal tidal expiration
and no air leak with light cough with suction briefly clamped (previously had level 5 airleak leak with forced expiration))
GI: Soft, Non Distended, Non Tender and Normal Bowel Sounds
Neurology: AO x 3 and Tremors (n)
Skin: Warm, Dry, Good Color and Cyanosis (n)
Labs/Micro/Reports
Lab Data
03/09/25 05:00
03/10/25 03:22
[2025-03-10] MEDS: DILAUDID 1 MG IV (13:32)
--- NOTE | 2025-03-10 16:00 | PTCARENOTE ---
Pt continues to be very tearful, Ambulating in room. Pts parents brought in lunch for pt and he ate 100%. Discussed with patient last prior bowel movement. Pt states it was a few days ago Pt states he is readily passing flatus. and states he is
not uncomfortable. Future bowel regimen discussed. Pt became very anxious and tearful. Emotional support provided. VSS. Assessment otherwise unchanged from prior.
[2025-03-10] MEDS: DILAUDID 0.5 MG IV (19:13)
--- NOTE | 2025-03-10 19:42 | PTCARENOTE ---
Patient received from RN @ 1900. Patient sitting in chair w/ call kerr in reach. AOx3 tearful and sad. SR on monitor. BP 118/78 HR 78. Heart sounds audible. Radial and pedal pulse. No edema noted. IS 1000. POX 99% RA. [address]
set to water seal draining serosanguineous fluid. Intermittent +1 air leak noted. No nausea noted. Bowel sounds normoactive and flatulence noted but no BM. Farris draining clear yellow urine. All surgical sites C/D/I. PIV patent and intact.
See worklist for more details. See MAR for pain management.
[2025-03-10] MEDS: REMOVE LIDOCAINE PATCH 1 PATCH REMOVE (20:35)
--- NOTE | 2025-03-11 00:18 | PTCARENOTE ---
Patient reassessed. SR on monitor. BP 102/73 HR 70 POX 96% RA. Patient resting comfortably.
[2025-03-11 04:03] VITALS: BP 104/72
--- NOTE | 2025-03-11 04:33 | PTCARENOTE ---
Patient reassessed. Patient resting comfortably. SR on monitor. VSS.
[2025-03-11] MEDS: TYLENOL 1000 MG PO ×3 (05:41→21:06)
[2025-03-11] MEDS: DILAUDID 0.5 MG IV (05:41)
--- NOTE | 2025-03-11 05:48 | W.PN.CT ---
Documented by User: Carlos Carter PA-C 03/11/25 05:48
Today's Communication / Plan
-
-pod #3
-no issues overnight
-2 R pleural CTs put on water seal on 03/10, +air leak with cough only, output 35/35 in 12/24 hrs
-follow daily CXR- small R apical ptx appears stable.
-stable R tiny apical ptx from lung tissue removed
-pain control (avoid NSAIDs)
-weaned off O2 - pOx 99% on RA
-pt is planning to stop any further tobacco or vaping
-Urology following re: Farris, continue Flomax
-encourage OOB
Assessment / Plan
-
- Right spontaneous pneumothorax- s/p Video-assisted thoracoscopic surgery; Right upper lobe bleb/wedge resection; Mechanical pleurodesis by Dr. Khan on 03/08/25, pod #3
- CT scan with significant blebs in a right upper lobe.
- Current smoking
- Hx anxiety - uses medical marijuana
Discussed patient care with: Nursing and Care Team
Subjective
-
Date of Service: March 10, 2025
Objective Data
-
Lab Results
03/09/25 05:00
03/10/25 03:22
PT 14.5 Sec (11.4-14.6) 03/08/25 02:51
INR 1.11 03/08/25 02:51
APTT 35.7 Sec (23.4-35.0) H 03/08/25 02:51
Vital Signs
Vital Signs
Temp Pulse Resp BP Pulse Ox
99 F 84 18 118/78 99
03/10/25 19:22 03/10/25 19:22 03/10/25 19:22 03/10/25 19:22 03/10/25 19:[address]
CT Intake/Output/Weight
03/10/25 03/10/25 03/11/25
06:59 18:59 06:59
Intake Total 960 / 960
Output Total 460 / 1820 650 / 885 235 / 885
Balance -460 / -1580 310 / 75 -235 / 75
SaO2: 99
Physical Exam
-
General: Awake and AOx3
Cardiovascular: Regular rate & rhythm, No Murmurs and No Rub
Respiratory: Clear
Incision: Clean, Dry and Dressing Intact
Extremities: No Edema
Abdomen: soft, nontender, nondistended, +bowel sounds
Data Reviewed
-
Lab Results: Results Reviewed
Medications: Active Meds Reviewed
Chest X-Ray: Report Reviewed and Image Reviewed
ECG: Report Reviewed and Image Reviewed

Documented by User: RAYMOND Bullock 03/11/25 11:38
Assessment / Plan
-
- Right spontaneous pneumothorax- s/p Video-assisted thoracoscopic surgery; Right upper lobe bleb/wedge resection; Mechanical pleurodesis by Dr. Khan on 03/08/25, pod #3
- CT scan with significant blebs in a right upper lobe.
- Current smoking
- Hx anxiety - uses medical marijuana
- Hx hypospadias
- Underweight - BMI 18.2
[2025-03-11 06:00] VITALS: BMI 18.2
[2025-03-11 08:03] VITALS: BP 107/74
[2025-03-11] MEDS: SENOKOT 8.6 MG PO ×2 (08:05→19:49)
[2025-03-11] MEDS: PROTONIX 40 MG PO ×2 (08:05→19:49)
[2025-03-11] MEDS: NEURONTIN 100 MG PO ×3 (08:05→21:06)
[2025-03-11] MEDS: FLOMAX 0.4 MG PO (08:05)
[2025-03-11] MEDS: NICODERM TRANSDERMAL 14 MG TRANSDERM (08:05)
[2025-03-11] MEDS: LIDOCAINE 4% PATCH 1 PATCH TOPICAL (08:06)
[2025-03-11] MEDS: FLEXERIL 5 MG PO (08:20)
--- NOTE | 2025-03-11 08:30 | PTCARENOTE ---
assumed care of pt from previous shift RN, sinus rhythm on tele, VSS. + peripheral pulses, no edema. Lungs diminished, pox 100% on RA, coughing and deep breathing encouraged. IS achieved up to 750. Surgical puncture stable, pleural CTs x2 to right
lateral chest. PIV flushes easily. Pt medicated for pain. Farris catheter removed as instructed. Plan of care reviewed and questions encouraged. Much emotional support provided.
--- NOTE | 2025-03-11 08:40 | W.PN.UPDATE ---
Update Note
Progress Note Update
pt's [place] removed this am
plan is to remove one chest tube
continue flomax
bladder scan this afternoon
--- NOTE | 2025-03-11 09:35 | PTCARENOTE ---
pleural CT removed by CT SHA.
[2025-03-11 10:49] VITALS: BP 106/76
[2025-03-11] MEDS: TORADOL 15 MG IV ×2 (10:52→21:06)
--- NOTE | 2025-03-11 11:10 | CM ---
Chart reviewed. Patient OOB ambulating the halls with his mother. Patient is independent of ADLS, lives with his parents in a 2 [address], 1 SANDY, 0 DME. 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 Plan is for the patient to return home with CT Transitional RN. CM
to follow
--- NOTE | 2025-03-11 11:32 | PN.CDI ---
CDI
- -
CDI:
Physician Documentation Request
Admit Date: 03/02/25 11:[address] Surgery,
Please review the following and provide your response in the progress notes.
Clinical Indicators:
Height: 5'7
Weight: 116 lb
BMI: 18.2
Other Clinical Notes: Clerk To Justice notes underweight
- Documented 7 lb weight loss inpatient
If possible, please provide an associated diagnosis related to the abnormal BMI, such as:
Underweight - BMI 18.2
Cachectic
Other (please specify)
Use of terms such as suspected, likely, concern for, or probable (associated with a specific diagnosis that is being evaluated, monitored, or treated as if it exists) are acceptable and can be coded in the inpatient setting, when documented at the
time of discharge.
Thank you,
Mayra Pearce RN
CDI Specialist
Please use your independent medical judgment in providing your response.
--- NOTE | 2025-03-11 12:21 | PTCARENOTE ---
pt ambulating in hallway independently, medicated for constipation.
--- NOTE | 2025-03-11 12:41 | W.PN.PUL3 ---
Today's Communication / Plan
-
re-expansion noted on waterseal and posterior chest tube removal
returned to suction, no particular airleak noted now
consider CT imaging if ongoing ptx noted
he is frustrated he cant go home
Assessment
-
24-year-old male with previous history of anxiety, current smoker presenting with acute onset right sided chest pain with shortness of breath. Chest x-ray demonstrating large right-sided pneumothorax with tension. Underwent urgent chest tube
placement on 03/02/2025 by IR with complete resolution. Never had pneumothorax before, denies prior known history of lung disease. Current half pack-a-day smoker. We are consulted for evaluation 03/02/25.
Spontaneous pneumothorax, R s/p chest tube 03/02/25, persistent
s/p 1. Video-assisted thoracoscopic surgery 2. Right upper lobe bleb/wedge resection 3. Mechanical pleurodesis 03/08/25
Current smoker with history of vaping and THC use
R sided chest pain, SOB
Conditions present prior to admission
Alcohol intoxication, ER visit 2017, ETOH level 241
Anxiety
Medical THC use
Plan
No oxygen was needed on admission, currently saturating >90% on RA
No prior history of lung disease is noted
Continue supplemental oxygen for now.
He is a current smoker, THC user as well--discussed smoking cessation-he states that he will not smoke anymore.
CXR/CT obtained indicating large R sided ptx, s/p small bore 14 Fr chest tube placement by IR 03/02
Continued on suction, repeat CXR on AM of 03/05 shows small apical right pneumothorax, and there has been a level 1 air leak with expiration since 03/05, although improved compared to 03/03
Appreciate CTS eval
CT chest noted with right apical bleb. Minimal left apical paraseptal emphysema.
CT surgery following the patient.
Underwent Video-assisted thoracoscopic surgery/Right upper lobe bleb/wedge resection/Mechanical pleurodesis 03/08/25, transferred to CVICU
Further postop management per team
Waterseal trials -- returned to suction 03/11 for re-expansion
consider CT chest imaging for eval
Smoking history noted - 0.5 - 1 PPD x 6 years
He says that he was dabbing THC 1-2 days prior to his PTX developing, and he had coughed while dabbing - I believe this is what caused his PTX
Smoking cessation recommended, he is on patch daily
We discussed use of SL/PO THC rather than inhaled for medical usage
Will need outpatient pulmonary evaluation in our office for PFTs and 6MWT
Reviewed plan with patient and answered all questions.
Pulmonary service will continue to follow along
Diagnostic Data
Chest X-Ray: 03/02/25-Large right-sided pneumothorax. Slight shift of the mediastinum toward the left, indicating a degree of tension.
CT Scan: 03/04/25- Right chest tube catheter in place. Moderate right pneumothorax. Associated mild posterior right lung base atelectasis. No pleural effusion or mediastinal shift.
Echo:
PFT's:
Reports and relevant images were personally reviewed.
Total time spent on this consultation/encounter __40__ minutes which includes review of history, physical exam, medications, laboratory data, personal review of imaging, extensive review of outpatient records, discussion with care team and
respiratory therapy.
Subjective Data
-
Date of Service:
Date of Service: March 11, 2025
Chief Complaint: Pulmonary Follow Up
Subjective:
ptx resumed while on waterseal, no new complaints
he is frustrated he cant go home
Objective Data
Data Reviewed
Vital Signs / I&O / Oxygen:
Vital Signs
Temp Pulse Resp BP Pulse Ox
98.9 F 134 16 106/76 95
03/11/25 10:49 03/11/25 11:00 03/11/25 10:49 03/11/25 10:49 03/11/25 10:49
Intake and Output
03/10/25 03/11/25 03/12/25
06:59 06:59 06:59
Intake Total 240 / 240 960 / 960 200 / 200
Output Total 1820 / 1820 1060 / 1060 210 / 210
Balance -1580 / -1580 -100 / -100 -10 / -10
SaO2 95
Nasal Cannula flow liters per 2
minute
Physical Exam
General: Respiratory Distress (n), Comfortable, Chills (n) and Sweats (n)
HEENT: Normocephalic and Anicteric
Cardiovascular: S1-S2 and Peripheral Edema (n)
Respiratory: Wheeze (Occasionally heard during expiration at anterior right hemithorax), Crackles (Lateral right hemithorax), Rhonchi (n), Non-Labored Respirations and Chest Tube (Right hemithorax with level 1 airleak with normal tidal expiration
and no air leak with light cough with suction briefly clamped (previously had level 5 airleak leak with forced expiration))
GI: Soft, Non Distended, Non Tender and Normal Bowel Sounds
Neurology: AO x 3 and Tremors (n)
Skin: Warm, Dry, Good Color and Cyanosis (n)
Labs/Micro/Reports
Lab Data
03/09/25 05:00
03/10/25 03:22
[2025-03-11] MEDS: MILK OF MAGNESIA 30 ML PO (13:09)
[2025-03-11] MEDS: MIRALAX 17 GRAMS PO (13:09)
--- NOTE | 2025-03-11 13:50 | PTCARENOTE ---
CT placed to -[address] SHA after CXR.
--- NOTE | 2025-03-11 14:44 | PTCARENOTE ---
pt was able to void, PVR 0ml. Dr. Egan made aware.
[2025-03-11 16:04] VITALS: BP 106/79
[2025-03-11] MEDS: REMOVE LIDOCAINE PATCH 1 PATCH REMOVE (19:50)
[2025-03-11 19:55] VITALS: BP 112/74
[2025-03-11 22:03] VITALS: BP 104/70
--- NOTE | 2025-03-11 22:53 | PTCARENOTE ---
Assumed care of patient at 1900. Patient is AOx4, follows commands appropriately, moves all extremities. Lung sounds are diminished throughout, saO2 96% on RA, R lateral CT draining serosang to atrium with -10 suction. Heart sounds are audible,
patient is SR on the monitor. Normal palpable pulses and no observable edema. Patient has active BS, reports constipation, voiding in the toilet. Patient has R lateral CT wound with 4x4 gauze CDI and R lateral chest puncture [employer]ING INVESTIGATOR. Patient has 20G R
AC for intermittent infusion.
--- NOTE | 2025-03-11 23:00 | PTCARENOTE ---
report received from previous RN, walking rounds done. pt in bed, sleeping. SR on monitor, HR 70s. + peripheral pulses, no edema. B/L breath sounds present, POX 96% on RA. CT x1 intact to -10cm wall suction, minimal drainage noted, +1 intermittent
air leak present. voids spontaneously. +BS. all surgical sites stable. PIV intact and patent. see worklist for full assessment, VS, and interventions.
[2025-03-12] VITALS (7 sets, daily range): BP systolic 106–116; BP diastolic 64–76; BMI 18.1
--- NOTE | 2025-03-12 03:45 | PTCARENOTE ---
no changes in assessment, VSS. SR/SB 50s-60s. POX 98% on room air. no CT output noted. all surgical sites stable. pt sleeping between care.
--- NOTE | 2025-03-12 05:12 | W.PN.CT ---
Today's Communication / Plan
-
Plan:
-No major issues overnight
-Chest tube placed on -10 cm of wall suction yesterday 03/11 from water seal d/t worsening ptx
-Positive air leak only with deep cough
-CXR this AM shows improved right apical ptx on my assessment. F/u official report
-OOB into chair/Ambulate
-Encourage smoking cessation
Assessment / Plan
-
- Right spontaneous pneumothorax- s/p Video-assisted thoracoscopic surgery; Right upper lobe bleb/wedge resection; Mechanical pleurodesis by Dr. Khan on 03/08/25, pod #4
- CT scan with significant blebs in a right upper lobe.
- Current smoking
- Hx anxiety - uses medical marijuana
- Hx hypospadias
- Underweight - BMI 18.2
Discussed patient care with: Cardiology, Nursing, Respiratory Therapy, Pharmacy and Care Team
Subjective
-
Date of Service: March 12, 2025
Pt c/o mild incisional pain. Denies SOB
Objective Data
-
Lab Results
03/09/25 05:00
03/10/25 03:22
PT 14.5 Sec (11.4-14.6) 03/08/25 02:51
INR 1.11 03/08/25 02:51
APTT 35.7 Sec (23.4-35.0) H 03/08/25 02:51
Vital Signs
Vital Signs
Temp Pulse Resp BP Pulse Ox
98.0 F 68 18 116/65 98
03/12/25 03:42 03/12/25 03:42 03/12/25 03:42 03/12/25 03:42 03/12/25 03:42
CT Intake/Output/Weight
03/11/25 03/11/25 03/12/25
06:59 18:59 06:59
Intake Total 200 / 560 360 / 560
Output Total 410 / 1060 220 / 235 15 / 235
Balance -410 / -100 -20 / 325 345 / 325
SaO2: 98 (RA)
Physical Exam
-
General: Awake, Oriented and AOx3
Cardiovascular: Regular rate & rhythm and No Murmurs
Respiratory: Decreased Breath Sounds (on right)
Sternum: Stable
Incision: Clean, Dry, Intact and Dressing Intact
Extremities: No Edema
Data Reviewed
-
Lab Results: Results Reviewed
Medications: Active Meds Reviewed
Chest X-Ray: Report Reviewed and Image Reviewed
ECG: Report Reviewed and Image Reviewed
[2025-03-12] MEDS: TYLENOL PO (06:40)
[2025-03-12] MEDS: PROTONIX 40 MG PO ×2 (08:36→19:28)
[2025-03-12] MEDS: NEURONTIN 100 MG PO ×3 (08:37→21:08)
[2025-03-12] MEDS: NICODERM TRANSDERMAL 14 MG TRANSDERM (08:37)
[2025-03-12] MEDS: LIDOCAINE 4% PATCH TOPICAL (08:37)
[2025-03-12] MEDS: SENOKOT 8.6 MG PO ×2 (08:37→19:28)
[2025-03-12] MEDS: FLOMAX 0.4 MG PO (08:37)
[2025-03-12] MEDS: TORADOL 15 MG IV ×2 (08:39→18:49)
--- NOTE | 2025-03-12 09:15 | PTCARENOTE ---
Assumed care of patient at 0645. Assessment completed and documented in shift assessment.
Patient continues with right lateral chest tube to -10cm wall suction. No crepitus, no evidence of air leak. Appropriate tidaling in tube. Okay'd to intermittently come off suction today per cardiovascular team. Orders updated. Patient very tearful
today about having to remain hospitalized. For repeat chest x-ray tomorrow morning.
--- NOTE | 2025-03-12 09:34 | W.PN.PUL3 ---
Today's Communication / Plan
-
Remains on suction, CXR improved
Consider waterseal trials again
Encouraged ambulation/IS
Assessment
-
24-year-old male with previous history of anxiety, current smoker presenting with acute onset right sided chest pain with shortness of breath. Chest x-ray demonstrating large right-sided pneumothorax with tension. Underwent urgent chest tube
placement on 03/02/2025 by IR with complete resolution. Never had pneumothorax before, denies prior known history of lung disease. Current half pack-a-day smoker. We are consulted for evaluation 03/02/25.
Spontaneous pneumothorax, R s/p chest tube 03/02/25, persistent
s/p 1. Video-assisted thoracoscopic surgery 2. Right upper lobe bleb/wedge resection 3. Mechanical pleurodesis 03/08/25
Current smoker with history of vaping and THC use
R sided chest pain, SOB
Conditions present prior to admission
Alcohol intoxication, ER visit 2017, ETOH level 241
Anxiety
Medical THC use
Plan
No oxygen was needed on admission, currently saturating >90% on RA
No prior history of lung disease is noted
Continue supplemental oxygen for now.
He is a current smoker, THC user as well--discussed smoking cessation-he states that he will not smoke anymore.
CXR/CT obtained indicating large R sided ptx, s/p small bore 14 Fr chest tube placement by IR 03/02
Continued on suction, repeat CXR on AM of 03/05 shows small apical right pneumothorax, and there has been a level 1 air leak with expiration since 03/05, although improved compared to 03/03
Appreciate CTS eval
CT chest noted with right apical bleb. Minimal left apical paraseptal emphysema.
CT surgery following the patient.
Underwent Video-assisted thoracoscopic surgery/Right upper lobe bleb/wedge resection/Mechanical pleurodesis 03/08/25, transferred to CVICU
Further postop management per team
Waterseal trials -- returned to suction 03/11 for re-expansion
CXR improved
consider CT chest imaging for eval
Smoking history noted - 0.5 - 1 PPD x 6 years
He says that he was dabbing THC 1-2 days prior to his PTX developing, and he had coughed while dabbing - I believe this is what caused his PTX
Smoking cessation recommended, he is on patch daily
We discussed use of SL/PO THC rather than inhaled for medical usage
Will need outpatient pulmonary evaluation in our office for PFTs and 6MWT
Reviewed plan with patient and answered all questions.
Pulmonary service will continue to follow along
Diagnostic Data
Chest X-Ray: 03/02/25-Large right-sided pneumothorax. Slight shift of the mediastinum toward the left, indicating a degree of tension.
CT Scan: 03/04/25- Right chest tube catheter in place. Moderate right pneumothorax. Associated mild posterior right lung base atelectasis. No pleural effusion or mediastinal shift.
Echo:
PFT's:
Reports and relevant images were personally reviewed.
Total time spent on this consultation/encounter __40__ minutes which includes review of history, physical exam, medications, laboratory data, personal review of imaging, extensive review of outpatient records, discussion with care team and
respiratory therapy.
Subjective Data
-
Date of Service:
Date of Service: March 12, 2025
Chief Complaint: Pulmonary Follow Up
Subjective:
no acute events, stable
family at bedside
Objective Data
Data Reviewed
Vital Signs / I&O / Oxygen:
Vital Signs
Temp Pulse Resp BP Pulse Ox
98.7 F 74 16 114/76 99
03/12/25 08:00 03/12/25 09:00 03/12/25 08:00 03/12/25 08:35 03/12/25 08:35
Intake and Output
03/11/25 03/12/25 03/13/25
06:59 06:59 06:59
Intake Total 960 / 960 560 / 560
Output Total 1060 / 1060 235 / 235
Balance -100 / -100 325 / 325
SaO2 99
Nasal Cannula flow liters per 2
minute
Physical Exam
General: Respiratory Distress (n), Comfortable, Chills (n) and Sweats (n)
HEENT: Normocephalic and Anicteric
Cardiovascular: S1-S2 and Peripheral Edema (n)
Respiratory: Wheeze (Occasionally heard during expiration at anterior right hemithorax), Crackles (Lateral right hemithorax), Rhonchi (n), Non-Labored Respirations and Chest Tube (Right hemithorax with level 1 airleak with normal tidal expiration
and no air leak with light cough with suction briefly clamped (previously had level 5 airleak leak with forced expiration))
GI: Soft, Non Distended, Non Tender and Normal Bowel Sounds
Neurology: AO x 3 and Tremors (n)
Skin: Warm, Dry, Good Color and Cyanosis (n)
Labs/Micro/Reports
Lab Data
03/09/25 05:00
03/10/25 03:22
--- NOTE | 2025-03-12 13:00 | PTCARENOTE ---
Assessment unchanged. Patient up and ambulatory in hallway twice so far today.
[2025-03-12] MEDS: TYLENOL 1000 MG PO ×2 (15:04→21:09)
--- NOTE | 2025-03-12 17:45 | PTCARENOTE ---
Assessment unchanged at this time.
--- NOTE | 2025-03-12 20:00 | PTCARENOTE ---
Assumed care of patient at 1900. Patient found oob in chair at time of assessment. Patient is AOx4, follows all commands appropriately, moves all extremities. Lung sounds are diminished throughout, saO2 98% on RA. Patient has R lateral pleural CT
with -10 wall suction draining serosang. Heart sounds are audible, patient is SR with occasional PACs, no observable edema and normal palpable pulses. Patient has active BS, pending BM, and is voiding in the bathroom. Patient has R lateral puncture
approx with surg adhesiven NUCLEAR PHYSICIAN, and R pleural CT wound with 4x4 gauze dressing CDI. Allyent has R AC 18G available for intermittent infusion. Melatonin added HS for sleep. Call kerr within reach.
[2025-03-12] MEDS: REMOVE LIDOCAINE PATCH REMOVE (20:21)
[2025-03-12] MEDS: MELATONIN 5 MG PO (21:09)
[2025-03-13] VITALS (7 sets, daily range): BP systolic 106–119; BP diastolic 63–82; BMI 19.0
--- NOTE | 2025-03-13 | PTCARENOTE ---
Patient reassessed. Melatonin given HS for sleep. Call kerr within reach.
--- NOTE | 2025-03-13 04:40 | W.PN.CT ---
Today's Communication / Plan
-
Plan:
-No major issues overnight
-Chest tube placed back on -10 cmh2o wall suction on 03/11, from water seal d/t worsening ptx
-Positive air leak only with deep inspiration and cough
-CXR this AM shows tiny right apical ptx on my assessment. F/u official report
-Will discuss suction another day vs water seal
-OOB into chair/Ambulate
-Encourage smoking cessation
Assessment / Plan
-
- Right spontaneous pneumothorax- s/p Video-assisted thoracoscopic surgery; Right upper lobe bleb/wedge resection; Mechanical pleurodesis by Dr. Khan on 03/08/25, pod #5
- CT scan with significant blebs in a right upper lobe.
- Current smoking
- Hx anxiety - uses medical marijuana
- Hx hypospadias
- Underweight - BMI 18.2
Discussed patient care with: Nursing, Respiratory Therapy, Pharmacy and Care Team
Subjective
-
Date of Service: March 13, 2025
Pt c/o mild incisional pain, otherwise feels well
Objective Data
-
Lab Results
03/09/25 05:00
03/10/25 03:22
PT 14.5 Sec (11.4-14.6) 03/08/25 02:51
INR 1.11 03/08/25 02:51
APTT 35.7 Sec (23.4-35.0) H 03/08/25 02:51
Vital Signs
Vital Signs
Temp Pulse Resp BP Pulse Ox
98.0 F 76 18 110/76 96
03/12/25 23:00 03/12/25 23:00 03/12/25 23:00 03/12/25 19:38 03/12/25 23:00
CT Intake/Output/Weight
03/12/25 03/12/25 03/13/25
06:59 18:59 06:59
Intake Total 360 / 560
Output Total 15 /
Balance 345 / 325 - -
SaO2: 96 (RA)
Physical Exam
-
General: Awake, Oriented and AOx3
Cardiovascular: Regular rate & rhythm, No Murmurs, No Rub and No Gallop
Respiratory: Decreased Breath Sounds (at bases, otherwise clear)
Sternum: Stable
Incision: Clean, Dry, Intact and Dressing Intact
Extremities: No Edema
Data Reviewed
-
Lab Results: Results Reviewed
Medications: Active Meds Reviewed
Chest X-Ray: Report Reviewed and Image Reviewed
ECG: Report Reviewed and Image Reviewed
--- NOTE | 2025-03-13 05:06 | PTCARENOTE ---
Patient reassessed. VSS. No c/o pain. Call kerr within reach.
[2025-03-13] MEDS: TYLENOL 1000 MG PO ×3 (05:55→22:08)
--- NOTE | 2025-03-13 07:39 | W.PN.PUL3 ---
Today's Communication / Plan
-
did not tolerate waterseal, back to suction
i did discuss with team regarding trial of doxy pleurodesis
continue chest tube management per team
Assessment
-
24-year-old male with previous history of anxiety, current smoker presenting with acute onset right sided chest pain with shortness of breath. Chest x-ray demonstrating large right-sided pneumothorax with tension. Underwent urgent chest tube
placement on 03/02/2025 by IR with complete resolution. Never had pneumothorax before, denies prior known history of lung disease. Current half pack-a-day smoker. We are consulted for evaluation 03/02/25.
Spontaneous pneumothorax, R s/p chest tube 03/02/25, persistent
s/p 1. Video-assisted thoracoscopic surgery 2. Right upper lobe bleb/wedge resection 3. Mechanical pleurodesis 03/08/25
Current smoker with history of vaping and THC use
R sided chest pain, SOB
Conditions present prior to admission
Alcohol intoxication, ER visit 2017, ETOH level 241
Anxiety
Medical THC use
Plan
No oxygen was needed on admission, currently saturating >90% on RA
No prior history of lung disease is noted
Continue supplemental oxygen for now.
He is a current smoker, THC user as well--discussed smoking cessation-he states that he will not smoke anymore.
CXR/CT obtained indicating large R sided ptx, s/p small bore 14 Fr chest tube placement by IR 03/02
Continued on suction, repeat CXR on AM of 03/05 shows small apical right pneumothorax, and there has been a level 1 air leak with expiration since 03/05, although improved compared to 03/03
Appreciate CTS eval
CT chest noted with right apical bleb. Minimal left apical paraseptal emphysema.
CT surgery following the patient.
Underwent Video-assisted thoracoscopic surgery/Right upper lobe bleb/wedge resection/Mechanical pleurodesis 03/08/25, transferred to CVICU
Further postop management per team
Waterseal trials -- returned to suction 03/11 for re-expansion
CXR improved
consider CT chest imaging for eval
Smoking history noted - 0.5 - 1 PPD x 6 years
He says that he was dabbing THC 1-2 days prior to his PTX developing, and he had coughed while dabbing - I believe this is what caused his PTX
Smoking cessation recommended, he is on patch daily
We discussed use of SL/PO THC rather than inhaled for medical usage
Will need outpatient pulmonary evaluation in our office for PFTs and 6MWT
Reviewed plan with patient and answered all questions.
Pulmonary service will continue to follow along
Diagnostic Data
Chest X-Ray: 03/02/25-Large right-sided pneumothorax. Slight shift of the mediastinum toward the left, indicating a degree of tension.
CT Scan: 03/04/25- Right chest tube catheter in place. Moderate right pneumothorax. Associated mild posterior right lung base atelectasis. No pleural effusion or mediastinal shift.
Echo:
PFT's:
Reports and relevant images were personally reviewed.
Total time spent on this consultation/encounter __40__ minutes which includes review of history, physical exam, medications, laboratory data, personal review of imaging, extensive review of outpatient records, discussion with care team and
respiratory therapy.
Subjective Data
-
Date of Service:
Date of Service: March 13, 2025
Chief Complaint: Pulmonary Follow Up
Subjective:
did not tolerate waterseal, back to suction
Objective Data
Data Reviewed
Vital Signs / I&O / Oxygen:
Vital Signs
Temp Pulse Resp BP Pulse Ox
98.5 F 69 20 108/65 96
03/13/25 04:00 03/13/25 07:00 03/13/25 04:00 03/13/25 04:40 03/13/25 04:42
Intake and Output
03/12/25 03/13/25 03/14/25
06:59 06:59 06:59
Intake Total 560 / 560
Output Total 235 / 235
Balance 325 / 325 -15 / -15
SaO2 96
Nasal Cannula flow liters per 2
minute
Physical Exam
General: Respiratory Distress (n), Comfortable, Chills (n) and Sweats (n)
HEENT: Normocephalic and Anicteric
Cardiovascular: S1-S2 and Peripheral Edema (n)
Respiratory: Wheeze (Occasionally heard during expiration at anterior right hemithorax), Crackles (Lateral right hemithorax), Rhonchi (n), Non-Labored Respirations and Chest Tube (Right hemithorax with level 1 airleak with normal tidal expiration
and no air leak with light cough with suction briefly clamped (previously had level 5 airleak leak with forced expiration))
GI: Soft, Non Distended, Non Tender and Normal Bowel Sounds
Neurology: AO x 3 and Tremors (n)
Skin: Warm, Dry, Good Color and Cyanosis (n)
Labs/Micro/Reports
Lab Data
03/09/25 05:00
03/10/25 03:22
[2025-03-13] MEDS: NEURONTIN 100 MG PO ×3 (08:17→22:08)
[2025-03-13] MEDS: FLOMAX 0.4 MG PO (08:17)
[2025-03-13] MEDS: PROTONIX 40 MG PO ×2 (08:17→19:52)
[2025-03-13] MEDS: LIDOCAINE 4% PATCH TOPICAL (08:17)
[2025-03-13] MEDS: SENOKOT 8.6 MG PO ×2 (08:17→22:07)
[2025-03-13] MEDS: NICODERM TRANSDERMAL 14 MG TRANSDERM (08:17)
[2025-03-13] MEDS: MIRALAX 17 GRAMS PO (08:34)
[2025-03-13] MEDS: TORADOL 15 MG IV (08:34)
--- NOTE | 2025-03-13 09:05 | PTCARENOTE ---
Assumed care of patient at 0645. Assessment completed and documented in shift assessment.
R Lateral CT now to water seal per cardiothoracic surgery. For repeat CXR at noon. [facility].
[2025-03-13] MEDS: ZOFRAN 4 MG IV ×2 (09:18→22:52)
[2025-03-13] MEDS: DULCOLAX 10 MG PO (09:54)
--- NOTE | 2025-03-13 12:25 | PTCARENOTE ---
Chest tube back on -10cm suction after CXR.
--- NOTE | 2025-03-13 14:45 | PTCARENOTE ---
Report given to IVU. Ambulated with patient to new room.
--- NOTE | 2025-03-13 15:54 | PTCARENOTE ---
received patient from CVICU, ambulated to room, mike. well with right lateral CT put on -10cm suction, draining scant amount of serosanguineous fluid. monitor NSR/ST, VSS. patient is teary, dad at bedside. lung merrill upper bases course, on RA, o2
sat 98%. 1600 portable chest xray completed.
[2025-03-13] MEDS: REMOVE LIDOCAINE PATCH REMOVE (19:52)
[2025-03-13] MEDS: MELATONIN 5 MG PO (22:07)
[2025-03-13] MEDS: ULTRAM 50 MG PO (22:17)
--- NOTE | 2025-03-13 23:18 | W.PN.CT ---
Today's Communication / Plan
-
Plan:
-No major issues overnight
-Did not tolerate chest tube to water seal for the second time yesterday 03/13, cxr showed increased pneumothorax. Chest tube placed back on -10 cmh2o wall suction
-Positive air leak noted with deep inspiration and cough, positive tidaling
-CXR this AM shows tiny right apical ptx (unchanged compared to one from 4pm yesterday) on my assessment. F/u official report
-Will discuss maintaining tube to suction vs chemical pleurodesis
-OOB into chair/Ambulate
-Encourage smoking/vaping cessation
Assessment / Plan
-
- Right spontaneous pneumothorax- s/p Video-assisted thoracoscopic surgery; Right upper lobe bleb/wedge resection; Mechanical pleurodesis by Dr. Khan on 03/08/25, pod #6
- CT scan with significant blebs in a right upper lobe.
- Current smoking/Vaping
- Hx anxiety - uses medical marijuana
- Hx hypospadias
- Underweight - BMI 18.2
Discussed patient care with: Cardiology, Nursing, Respiratory Therapy, Pharmacy and Care Team
Subjective
-
Date of Service: March 13, 2025
Pt c/o mild chest tube insertion site tenderness, denies SOB
Objective Data
-
Lab Results
03/09/25 05:00
03/10/25 03:22
PT 14.5 Sec (11.4-14.6) 03/08/25 02:51
INR 1.11 03/08/25 02:51
APTT 35.7 Sec (23.4-35.0) H 03/08/25 02:51
Vital Signs
Vital Signs
Temp Pulse Resp BP Pulse Ox
97.9 F 76 20 106/70 99
03/13/25 22:04 03/13/25 22:03 03/13/25 22:04 03/13/25 22:03 03/13/25 22:04
CT Intake/Output/Weight
03/13/25 03/13/25 03/14/25
06:59 18:59 06:59
Intake Total 720 / 720
Output Total 5 / 15
Balance -5 / -15 720 / 720
SaO2: 99 (RA)
Physical Exam
-
General: Awake, Oriented and AOx3
Cardiovascular: Regular rate & rhythm
Respiratory: Decreased Breath Sounds (on right)
Incision: Clean, Dry, Intact and Dressing Intact
Extremities: No Edema
Data Reviewed
-
Lab Results: Results Reviewed
Medications: Active Meds Reviewed
Chest X-Ray: Report Reviewed and Image Reviewed
CT Scan: Report Reviewed and Image Reviewed
ECG: Report Reviewed and Image Reviewed
[2025-03-14] VITALS (8 sets, daily range): BP systolic 103–121; BP diastolic 60–78; BMI 19.3
--- NOTE | 2025-03-14 00:01 | PTCARENOTE ---
Pt.'s CT tube set to -10cm H20/wall suction, draining small amount SS fluid. No crepitus or air leak assessed, RA pulse ox 98-100%, no complaints of SOB. NSR on the monitor. Tramadol given for right CT site discomfort after which pt. complained
of nausea, stated he's been getting nauseous after oral medications. Zofran given as requested - pt. sleeping when checked on.
--- NOTE | 2025-03-14 00:09 | PTCARENOTE ---
Pt.'s chest tube set to -10cm H20/wall suction, draining small amount SS fluid. No crepitus or air leak assessed, RA pulse ox 98-100%, no complaints of SOB. NSR on the monitor. Tramadol given for right CT site discomfort after which pt.
complained of nausea, stated he's been getting nauseous after oral medications. Zofran given as requested - pt. sleeping when checked on.
[2025-03-14] MEDS: TYLENOL 1000 MG PO ×3 (05:15→21:23)
[2025-03-14] MEDS: LIDOCAINE 4% PATCH TOPICAL (08:32)
--- NOTE | 2025-03-14 08:38 | PTCARENOTE ---
received patient this am in bed sleeping, easily aroused. right CT to -10cm wall suction, tidaling noted, no air leak. draining serosanguineous fluid. Monitor shows NSR, VSS.
--- NOTE | 2025-03-14 08:50 | W.PN.PUL.V3 ---
Today's Communication / Plan
-
chest or back on wall suction.
Follow chest x-ray.
Eventual outpatient pulmonary follow-up
Assessment
-
24-year-old male with previous history of anxiety, current smoker presenting with acute onset right sided chest pain with shortness of breath. Chest x-ray demonstrating large right-sided pneumothorax with tension. Underwent urgent chest tube
placement on 03/02/2025 by IR with complete resolution. Never had pneumothorax before, denies prior known history of lung disease. Current half pack-a-day smoker. We are consulted for evaluation 03/02/25.
Spontaneous pneumothorax-Right side
s/p chest tube 03/02/25
s/p 1. Video-assisted thoracoscopic surgery 2. Right upper lobe bleb/wedge resection 3. Mechanical pleurodesis 03/08/25
Current smoker with history of vaping and THC use
R sided chest pain, SOB
Conditions present prior to admission:
Alcohol intoxication, ER visit 2017, ETOH level 241
Anxiety
Medical THC use
Plan
Respiratory status stable
Supplemental options as needed
Chest x-ray followed
Chest tube per thoracic surgery.
Heimlich valve placed- Repeat chest x-ray with moderate pneumothorax-placed back on wall suction 03/14/25
He is a current smoker, THC user as well--discussed smoking cessation-he states that he will not smoke anymore.
Appreciate thoracic surgical evaluation
CT chest noted with right apical bleb. Minimal left apical paraseptal emphysema.
CT surgery following the patient-correspondence reviewed
Underwent Video-assisted thoracoscopic surgery/Right upper lobe bleb/wedge resection/Mechanical pleurodesis 03/08/25, transferred to CVICU
Smoking history noted - 0.5 - 1 PPD x 6 years
He says that he was dabbing THC 1-2 days prior to his PTX developing, and he had coughed while dabbing - I believe this is what caused his PTX
Smoking cessation recommended, he is on patch daily
We discussed use of SL/PO THC rather than inhaled for medical usage
Will need outpatient pulmonary evaluation in our office for PFTs and 6MWT
Reviewed plan with patient and answered all questions.
Diagnostic Data
Chest X-Ray: 03/02/25-Large right-sided pneumothorax. Slight shift of the mediastinum toward the left, indicating a degree of tension.
CT Scan: 03/04/25- Right chest tube catheter in place. Moderate right pneumothorax. Associated mild posterior right lung base atelectasis. No pleural effusion or mediastinal shift.
Subjective Data
-
Date of Service:
Date of Service: March 14, 2025
Chief Complaint: Pulmonary Follow Up and Dyspnea Follow Up
Subjective:
No complete shortness of breath, chest pain, pleurisy, chest congestion
Review of Systems
General: Other (Per HPI)
Objective Data
Data Reviewed
Vital Signs / I&O:
Vital Signs
Temp Pulse Resp BP Pulse Ox
98.2 F 95 16 121/66 98
03/14/25 07:51 03/14/25 07:51 03/14/25 07:51 03/14/25 07:51 03/14/25 07:51
Intake and Output
03/13/25 03/14/25 03/15/25
06:59 06:59 06:59
Intake Total 1200 / 1200
Output Total 15 / 15 50 / 50
Balance -15 / -15 1150 / 1150
SaO2: 98
Nasal Cannula flow liters per minute: 2
Physical Exam
General: Respiratory Distress (n), Comfortable, Chills (n) and Sweats (n)
HEENT: Normocephalic and Anicteric
Cardiovascular: Regular Rhythm and Peripheral Edema (n)
Respiratory: Wheeze (Occasionally heard during expiration at anterior right hemithorax), Crackles (Lateral right hemithorax), Rhonchi (n), Non-Labored Respirations and Chest Tube (Right hemithorax with level 1 airleak with normal tidal expiration
and no air leak with light cough with suction briefly clamped (previously had level 5 airleak leak with forced expiration))
GI: Soft, Non Distended, Non Tender and Normal Bowel Sounds
Neurology: AO x 3 and Tremors (n)
Skin: Warm, Dry, Good Color and Cyanosis (n)
Labs/Micro/Reports
Lab Data
03/09/25 05:00
03/10/25 03:22
[2025-03-14] MEDS: FLOMAX 0.4 MG PO (09:10)
[2025-03-14] MEDS: MIRALAX PO (09:10)
[2025-03-14] MEDS: SENOKOT 8.6 MG PO ×2 (09:10→20:42)
[2025-03-14] MEDS: PROTONIX 40 MG PO (09:10)
[2025-03-14] MEDS: NEURONTIN 100 MG PO ×3 (09:10→21:23)
[2025-03-14] MEDS: NICODERM TRANSDERMAL 14 MG TRANSDERM (09:13)
--- NOTE | 2025-03-14 09:36 | PTCARENOTE ---
Carolina TRIPLETT changed patients CT to leg bag and off suction. redressed sites. will obtaine portable chest xray at noon.
--- NOTE | 2025-03-14 09:38 | PTCARENOTE ---
Addendum entered by Adelita Hardy RN 03/14/25 09:46:
dulcolax po not given was discontinued by provider.
Original Note:
patient has not had BM in days, mag citrate and Dulcolax po given as ordered.
[2025-03-14] MEDS: CITROMA 300 ML PO (09:40)
[2025-03-14] MEDS: CEFTIN 500 MG PO ×2 (10:26→20:42)
--- NOTE | 2025-03-14 12:40 | W.PN.UPDATE ---
Update Note
Progress Note Update
Heimlich valve was applied this morning with follow-up chest x-ray at 12 PM. 12 PM chest x-ray revealed a moderate pneumothorax. Patient was placed back on suction at -10 mmHg with follow-up chest x-ray scheduled for 2pm.
--- NOTE | 2025-03-14 12:55 | CM ---
Reviewed chart. Mr. Cuevas was transferred to IVU. Met with Mr. uCevas and his mother to review discharge plans. He states he is feeling okay. He may go home with a Heimlich valve chest tube. Prior to admission he resides with his parents in a two
story home with one step to enter. Prior to admission he was independent with ambulation and adls. He does not have any DME in the home.He has a prescription plan and uses [facility]. Medical work-up in progress. The discharge plan is to
return home with his parents and a home visit by the Transitional Care Nurse when medically stable.
[2025-03-14] MEDS: REMOVE LIDOCAINE PATCH REMOVE (21:04)
--- NOTE | 2025-03-14 21:10 | PTCARENOTE ---
Rec'd pt at change of shift. Pt AAO*3, VSS, and SR-sinus tach on tele monitor. Pt denies any pain or discomfort and chest tube site/dressing intact. System remains connected to suction at -10 mmhg of pressure as ordered without any disruption.
Drainage clear red fluid. Pt education provided about smoking cessation. Pt now resting with call kerr in reach. See MAR and flowchart for full pt care and assessment.
[2025-03-14] MEDS: MELATONIN 5 MG PO (21:23)
[2025-03-15 03:36] VITALS: BP 117/74
[2025-03-15 03:38] VITALS: BMI 19.5
--- NOTE | 2025-03-15 05:18 | W.PN.CT ---
Today's Communication / Plan
-
Plan:
-No major issues overnight
-Did not tolerate Heimlich valve yesterday 03/14 d/t worsening ptx. Placed back on -10 cmh2o wall suction
-Positive air leak noted with deep inspiration and cough, positive tidaling
-CXR this AM shows tiny right apical ptx , improved compared to cxr yesterday on assessment. F/u official report
-Will discuss maintaining tube to suction another day
-OOB into chair/Ambulate
-Encourage smoking/vaping cessation
Assessment / Plan
-
- Right spontaneous pneumothorax- s/p Video-assisted thoracoscopic surgery; Right upper lobe bleb/wedge resection; Mechanical pleurodesis by Dr. Khan on 03/08/25, pod #7
- CT scan with significant blebs in a right upper lobe.
- Current smoking/Vaping
- Hx anxiety - uses medical marijuana
- Hx hypospadias
- Underweight - BMI 18.2
Discussed patient care with: Nursing, Respiratory Therapy, Pharmacy and Care Team
Subjective
-
Date of Service: March 15, 2025
Pt c/o mild chest tube insertion site pain, denies SOB. Had BM overnight
Objective Data
-
Lab Results
03/09/25 05:00
03/10/25 03:22
PT 14.5 Sec (11.4-14.6) 03/08/25 02:51
INR 1.11 03/08/25 02:51
APTT 35.7 Sec (23.4-35.0) H 03/08/25 02:51
Vital Signs
Vital Signs
Temp Pulse Resp BP Pulse Ox
97.8 F 76 14 117/74 100
03/15/25 03:35 03/15/25 03:36 03/15/25 03:35 03/15/25 03:36 03/15/25 03:35
CT Intake/Output/Weight
03/14/25 03/14/25 03/15/25
06:59 18:59 06:59
Intake Total 480 / 1200 240 / 240
Output Total 50 / 50 0 / 0
Balance 430 / 1150 240 / 240
SaO2: 100 (RA)
Physical Exam
-
General: Awake, Oriented and AOx3
Cardiovascular: Regular rate & rhythm, No Murmurs and No Gallop
Respiratory: Decreased Breath Sounds (on right)
Incision: Clean, Dry, Intact and Dressing Intact
Extremities: No Edema
Data Reviewed
-
Lab Results: Results Reviewed
Medications: Active Meds Reviewed
Chest X-Ray: Report Reviewed and Image Reviewed
CT Scan: Report Reviewed and Image Reviewed
ECG: Report Reviewed and Image Reviewed
[2025-03-15] MEDS: TYLENOL 1000 MG PO ×3 (06:00→22:56)
[2025-03-15 07:47] VITALS: BP 106/67
[2025-03-15] MEDS: CEFTIN 500 MG PO ×2 (08:13→19:48)
[2025-03-15] MEDS: LIDOCAINE 4% PATCH 1 PATCH TOPICAL (08:13)
[2025-03-15] MEDS: MIRALAX 17 GRAMS PO (08:13)
[2025-03-15] MEDS: NEURONTIN 100 MG PO ×3 (08:13→22:56)
[2025-03-15] MEDS: FLOMAX 0.4 MG PO (08:13)
[2025-03-15] MEDS: PROTONIX 40 MG PO (08:13)
[2025-03-15] MEDS: SENOKOT 8.6 MG PO ×2 (08:13→19:48)
[2025-03-15] MEDS: NICODERM TRANSDERMAL 14 MG TRANSDERM (08:14)
--- NOTE | 2025-03-15 11:03 | W.PN.PUL.V3 ---
Today's Communication / Plan
-
Continue wall suction
Follow chest x-ray
Assessment
-
24-year-old male with previous history of anxiety, current smoker presenting with acute onset right sided chest pain with shortness of breath. Chest x-ray demonstrating large right-sided pneumothorax with tension. Underwent urgent chest tube
placement on 03/02/2025 by IR with complete resolution. Never had pneumothorax before, denies prior known history of lung disease. Current half pack-a-day smoker. We are consulted for evaluation 03/02/25.
Spontaneous pneumothorax-Right side
s/p chest tube 03/02/25
s/p 1. Video-assisted thoracoscopic surgery 2. Right upper lobe bleb/wedge resection 3. Mechanical pleurodesis 03/08/25
Current smoker with history of vaping and THC use
R sided chest pain, SOB
Conditions present prior to admission:
Alcohol intoxication, ER visit 2017, ETOH level 241
Anxiety
Medical THC use
Plan
Respiratory status stable
Supplemental options as needed-currently on room air
Chest x-ray 03/15/2025-small right apical pneumothorax
Chest tube per thoracic surgery.
Heimlich valve placed 03/14/2025- Repeat chest x-ray with moderate pneumothorax-placed back on wall suction 03/14/25
Chest tube on wall suction, positive airleak with deep inspiration and cough-continue suction for additional 24-48 hours
He is a current smoker, THC user as well--discussed smoking cessation-he states that he will not smoke anymore.
Appreciate thoracic surgical evaluation-correspondence reviewed
CT chest noted with right apical bleb. Minimal left apical paraseptal emphysema.
CT surgery following the patient-correspondence reviewed
Underwent Video-assisted thoracoscopic surgery/Right upper lobe bleb/wedge resection/Mechanical pleurodesis 03/08/25, transferred to CVICU
Smoking history noted - 0.5 - 1 PPD x 6 years
He says that he was dabbing THC 1-2 days prior to his PTX developing, and he had coughed while dabbing - I believe this is what caused his PTX
Smoking cessation recommended, he is on patch daily
We discussed use of SL/PO THC rather than inhaled for medical usage
Will need outpatient pulmonary evaluation in our office for PFTs and 6MWT
Reviewed plan with patient and answered all questions.
Diagnostic Data
Chest X-Ray: 03/02/25-Large right-sided pneumothorax. Slight shift of the mediastinum toward the left, indicating a degree of tension.
CT Scan: 03/04/25- Right chest tube catheter in place. Moderate right pneumothorax. Associated mild posterior right lung base atelectasis. No pleural effusion or mediastinal shift.
Subjective Data
-
Date of Service:
Date of Service: March 15, 2025
Chief Complaint: Pulmonary Follow Up and Dyspnea Follow Up
Subjective:
Out of bed, no complaints of shortness of breath at rest, no chest pain or abdominal pain
Review of Systems
General: Other (Per HPI)
Objective Data
Data Reviewed
Vital Signs / I&O:
Vital Signs
Temp Pulse Resp BP Pulse Ox
98.2 F 68 16 106/67 99
03/15/25 07:45 03/15/25 08:00 03/15/25 07:45 03/15/25 07:47 03/15/25 07:47
Intake and Output
03/14/25 03/15/25 03/16/25
06:59 06:59 06:59
Intake Total 1200 / 1200 240 / 240
Output Total 50 / 50 35 / 35
Balance 1150 / 1150 205 / 205
SaO2: 99
Nasal Cannula flow liters per minute: 2
Physical Exam
General: Respiratory Distress (n), Comfortable, Chills (n) and Sweats (n)
HEENT: Normocephalic and Anicteric
Cardiovascular: Regular Rhythm, Peripheral Edema (n) and Other
Respiratory: Wheeze (Occasionally heard during expiration at anterior right hemithorax), Crackles (Lateral right hemithorax), Rhonchi (n), Non-Labored Respirations and Chest Tube
GI: Soft, Non Distended, Non Tender and Normal Bowel Sounds
Neurology: AO x 3 and Tremors (n)
Skin: Warm, Dry, Good Color and Cyanosis (n)
Labs/Micro/Reports
Lab Data
03/09/25 05:00
03/10/25 03:22
[2025-03-15 11:25] VITALS: BP 117/73
--- NOTE | 2025-03-15 13:30 | CM ---
Reviewed chart. Met with Mr. Cuevas to review discharge plans. He states his feeling okay. He states prior to admission he resides with his parents in a two story home with one step to enter. He states he has a full flight of steps to get to
bedroom/full bathroom. He states he has a powder room on the first floor. He states prior to admission he was independent with ambulation and adls. He states he does not have any DME in the home. He states his mother works from home and she will
be available to assist in his care if needed. Medical work-up in progress. The discharge plan is to return home with his parents and a home visit by the Transitional Care Nurse when medically stable.
--- NOTE | 2025-03-15 14:15 | PTCARENOTE ---
Pt c/o right anterior chest wall tightness, stating 'it fills up with air, then I cough and it goes away'. Right pleural CT to -10cm wall suction, +air leak noted, +tidaling. Carolina Dumont NP made aware, for stat CXR.
--- NOTE | 2025-03-15 15:00 | PTCARENOTE ---
CT suction increased to -20cm and O2 @2L applied, pt with slight improvement to chest tightness.
[2025-03-15 15:26] VITALS: BP 102/50
[2025-03-15] MEDS: ULTRAM 25 MG PO (19:04)
[2025-03-15] MEDS: REMOVE LIDOCAINE PATCH REMOVE (19:48)
[2025-03-15 19:57] VITALS: BP 113/74
--- NOTE | 2025-03-15 21:58 | PTCARENOTE ---
Rec'd pt at change of shift. PT AAO*3, VSS, and SR. Pt denies any pain or discomfort. R side CT intact and connected to wall suction. PT on 2L of oxygen. Drainage noted to be additional 10mL of red sericigenous fluid from last nursing shift.
Pt now resting with call kerr in reach. Plan of care ongoing. See MAR and flowchart for full pt care and assessment.
[2025-03-15] MEDS: MELATONIN 5 MG PO (22:56)
[2025-03-15 22:58] VITALS: BP 116/64
[2025-03-16] VITALS (7 sets, daily range): BP systolic 108–118; BP diastolic 68–79; BMI 19.3
--- NOTE | 2025-03-16 04:23 | W.PN.CT ---
Today's Communication / Plan
-
Plan:
-No major issues overnight
-Did not tolerate Heimlich valve yesterday 03/14 d/t worsening ptx. Placed back on -10 cmh2o wall suction on 03/14
-Pt with increase ptx during a Valsalva maneuver on 03/15, chest tube suction increased to -20 cm with improved ptx
-Chest tube now with intermittent +1 air leak, positive tidaling
-CXR this AM shows tiny right apical ptx, improved compared to cxr yesterday on my assessment. F/u official report
-Will discuss maintaining tube to suction
-OOB into chair/Ambulate
-Encourage smoking/vaping cessation
Assessment / Plan
-
- Right spontaneous pneumothorax- s/p Video-assisted thoracoscopic surgery; Right upper lobe bleb/wedge resection; Mechanical pleurodesis by Dr. Khan on 03/08/25, pod #8
- CT scan with significant blebs in a right upper lobe.
- Current smoking/Vaping
- Hx anxiety - uses medical marijuana
- Hx hypospadias
- Underweight - BMI 18.2
Discussed patient care with: Nursing, Respiratory Therapy, Pharmacy and Care Team
Subjective
-
Date of Service: March 16, 2025
Pt c/o mild chest tube insertion site pain, denies SOB
Objective Data
-
Lab Results
03/09/25 05:00
03/10/25 03:22
PT 14.5 Sec (11.4-14.6) 03/08/25 02:51
INR 1.11 03/08/25 02:51
APTT 35.7 Sec (23.4-35.0) H 03/08/25 02:51
Vital Signs
Vital Signs
Temp Pulse Resp BP Pulse Ox
98.1 F 68 18 113/74 99
03/16/25 03:45 03/16/25 03:45 03/16/25 03:45 03/15/25 19:57 03/16/25 03:45
CT Intake/Output/Weight
03/15/25 03/15/25 03/16/25
06:59 18:59 06:59
Intake Total 480 / 480
Output Total 35 / 35 40 / 40
Balance -35 / 205 -40 / 440 480 / 440
SaO2: 99 (2L)
Physical Exam
-
General: Awake, Oriented and AOx3
Cardiovascular: Regular rate & rhythm and No Murmurs
Respiratory: Decreased Breath Sounds (on right)
Incision: Clean, Dry, Intact and Dressing Intact
Extremities: No Edema
Data Reviewed
-
Lab Results: Results Reviewed
Medications: Active Meds Reviewed
Chest X-Ray: Report Reviewed and Image Reviewed
CT Scan: Report Reviewed and Image Reviewed
ECG: Report Reviewed and Image Reviewed
[2025-03-16] MEDS: TYLENOL 1000 MG PO ×3 (05:42→21:51)
[2025-03-16] MEDS: MIRALAX PO (09:04)
[2025-03-16] MEDS: LIDOCAINE 4% PATCH TOPICAL (09:04)
[2025-03-16] MEDS: NICODERM TRANSDERMAL 14 MG TRANSDERM (09:04)
[2025-03-16] MEDS: SENOKOT PO (09:04)
[2025-03-16] MEDS: CEFTIN 500 MG PO ×2 (09:05→20:04)
[2025-03-16] MEDS: PROTONIX 40 MG PO (09:05)
[2025-03-16] MEDS: NEURONTIN 100 MG PO ×3 (09:05→21:51)
[2025-03-16] MEDS: FLOMAX 0.4 MG PO (09:05)
--- NOTE | 2025-03-16 10:24 | PTCARENOTE ---
received patient this am, patient asked me to help him OOB due to o2 tubing and CT. patient presently sitting up in a chair eating breakfast. monitor shows NSR, VSS. right ant. pleural CT draining scant amount of serosanguineous fluid. CT is to
-20cm suction, no crepitus noted at site, no air leak in CT. patient remains on 2 LNC, o2 sat 95%. nicotine patch applied to SUE.
--- NOTE | 2025-03-16 10:51 | W.PN.PUL.V3 ---
Today's Communication / Plan
-
.
Chest tube to wall suction.
Follow chest x-ray
Assessment
-
24-year-old male with previous history of anxiety, current smoker presenting with acute onset right sided chest pain with shortness of breath. Chest x-ray demonstrating large right-sided pneumothorax with tension. Underwent urgent chest tube
placement on 03/02/2025 by IR with complete resolution. Never had pneumothorax before, denies prior known history of lung disease. Current half pack-a-day smoker. We are consulted for evaluation 03/02/25.
Spontaneous pneumothorax-Right side
s/p chest tube 03/02/25
s/p 1. Video-assisted thoracoscopic surgery 2. Right upper lobe bleb/wedge resection 3. Mechanical pleurodesis 03/08/25
Current smoker with history of vaping and THC use
R sided chest pain, SOB
Conditions present prior to admission:
Alcohol intoxication, ER visit 2017, ETOH level 241
Anxiety
Medical THC use
Plan
Respiratory continues to be stable
Supplemental options as needed-currently on room air-consider supplemental option to help with nitrogen washout
Chest x-ray 03/15/2025-small right apical pneumothorax
Chest x-ray 03/16/25-improved right apical pneumothorax
Chest tube per thoracic surgery.
Heimlich valve placed 03/14/2025- Repeat chest x-ray with moderate pneumothorax-placed back on wall suction 03/14/25
Chest tube on wall suction, positive airleak with deep inspiration and cough-continue suction for additional 24-48 hours-no significant leak
He is a current smoker, THC user as well--discussed smoking cessation-he states that he will not smoke anymore.
Appreciate thoracic surgical evaluation-correspondence reviewed
CT chest noted with right apical bleb. Minimal left apical paraseptal emphysema.
CT surgery following the patient-correspondence reviewed
Underwent Video-assisted thoracoscopic surgery/Right upper lobe bleb/wedge resection/Mechanical pleurodesis 03/08/25, transferred to [facility]ICU
Smoking history noted - 0.5 - 1 PPD x 6 years
He says that he was dabbing THC 1-2 days prior to his PTX developing, and he had coughed while dabbing - I believe this is what caused his PTX
Smoking cessation recommended, he is on patch daily
We discussed use of SL/PO THC rather than inhaled for medical usage
Will need outpatient pulmonary evaluation in our office for PFTs and 6MWT
Reviewed plan with patient and answered all questions.
Diagnostic Data
Chest X-Ray: 03/02/25-Large right-sided pneumothorax. Slight shift of the mediastinum toward the left, indicating a degree of tension.
CT Scan: 03/04/25- Right chest tube catheter in place. Moderate right pneumothorax. Associated mild posterior right lung base atelectasis. No pleural effusion or mediastinal shift.
Subjective Data
-
Date of Service:
Date of Service: March 16, 2025
Chief Complaint: Pulmonary Follow Up and Dyspnea Follow Up
Subjective:
Complains worsening shortness of breath, chest pain or abdominal pain
Review of Systems
General: Other (. HPI)
Objective Data
Data Reviewed
Vital Signs / I&O:
Vital Signs
Temp Pulse Resp BP Pulse Ox
98.1 F 69 16 110/69 97
03/16/25 07:53 03/16/25 10:00 03/16/25 08:00 03/16/25 08:00 03/16/25 08:30
Intake and Output
03/15/25 03/16/25 03/17/25
06:59 06:59 06:59
Intake Total 240 / 240 480 / 480
Output Total 35 / 35 58 / 58
Balance 205 / 205 422 / 422
SaO2: 97
Nasal Cannula flow liters per minute: 2
Physical Exam
General: Respiratory Distress (n), Comfortable, Chills (n) and Sweats (n)
HEENT: Normocephalic and Anicteric
Cardiovascular: Regular Rhythm, Peripheral Edema (n) and Other
Respiratory: Wheeze (Occasionally heard during expiration at anterior right hemithorax), Crackles (Lateral right hemithorax), Rhonchi (n), Non-Labored Respirations and Chest Tube
GI: Soft, Non Distended, Non Tender and Normal Bowel Sounds
Neurology: AO x 3 and Tremors (n)
Skin: Warm, Dry, Good Color and Cyanosis (n)
Labs/Micro/Reports
Lab Data
03/09/25 05:00
03/10/25 03:22
--- NOTE | 2025-03-16 15:04 | CM ---
Reviewed chart. Met with Mr. Cuevas to review discharge plans. He states he is feeling about the same. Prior to admission he resides with his parents in a two story home with one step to enter. He states he has a full flight of steps to get to
bedroom/full bathroom. He has a powder room on the first floor. Prior to admission he was independent with ambulation and adls. He does not have any DME in the home. His mother works from home and she will be available to assist in his care if
needed. Medical work-up in progress. The discharge plan is to return home with his parents and a home visit by the Transitional Care Nurse when medically stable.
--- NOTE | 2025-03-16 17:41 | PTCARENOTE ---
changed Right CT, serous drainage noted on bandage, removed all dsg. cleaned with saline, redressed with 4x4 and transparent film dressing.
[2025-03-16] MEDS: REMOVE LIDOCAINE PATCH REMOVE (20:04)
[2025-03-16] MEDS: SENOKOT 8.6 MG PO (20:04)
[2025-03-16] MEDS: MELATONIN 5 MG PO (21:51)
[2025-03-16] MEDS: ULTRAM 50 MG PO (21:56)
--- NOTE | 2025-03-16 23:30 | PTCARENOTE ---
Rec'd pt at change of shift. Chest tube and suction intact and remains closed system. Pt reported moderate pain at chest tube site. Pt provided new [facility] bed and given Ultram as ordered. Pt now resting with call kerr in reach. See
MAR and flowchart for full pt care and assessment.
[2025-03-17] VITALS (7 sets, daily range): BP systolic 102–127; BP diastolic 56–76; BMI 19.4
--- NOTE | 2025-03-17 00:38 | W.PN.CT ---
Today's Communication / Plan
-
-pod #9
-no issues overnight
-pt did not tolerate Heimlich valve on 03/14 d/t worsening ptx and was placed on -10 cm wall suction on 03/14
-R CT suction was increased from -10cm to -20cm on 03/15 after pt had increased ptx during a Valsalva maneuver on 03/15. Currently, CT on -20 sxn, has intermittent +1 air leak with breathing and talking
-follow daily CXR
-OOB into chair/Ambulate
-Encourage smoking/vaping cessation
Assessment / Plan
-
- Right spontaneous pneumothorax- s/p Video-assisted thoracoscopic surgery; Right upper lobe bleb/wedge resection; Mechanical pleurodesis by Dr. Khan on 03/08/25, pod #9
- CT scan with significant blebs in a right upper lobe.
- Current smoking/Vaping
- Hx anxiety - uses medical marijuana
- Hx hypospadias
- Underweight - BMI 18.2
Discussed patient care with: Nursing and Care Team
Subjective
-
Date of Service: March 17, 2025
Objective Data
-
Lab Results
03/09/25 05:00
03/10/25 03:22
PT 14.5 Sec (11.4-14.6) 03/08/25 02:51
INR 1.11 03/08/25 02:51
APTT 35.7 Sec (23.4-35.0) H 03/08/25 02:51
Vital Signs
Vital Signs
Temp Pulse Resp BP Pulse Ox
98.6 F 67 16 108/68 99
03/16/25 21:49 03/16/25 23:00 03/16/25 21:49 03/16/25 21:50 03/16/25 23:20
CT Intake/Output/Weight
03/16/25 03/16/25 03/17/25
06:59 18:59 06:59
Intake Total 480 / 480 480 / 480
Output Total
Balance 462 / 422 450 / 450
SaO2: 99
Physical Exam
-
General: Awake and AOx3
Cardiovascular: Regular rate & rhythm, No Murmurs and No Rub
Respiratory: Decreased Breath Sounds (on R)
Incision: Clean, Dry and Dressing Intact
Extremities: No Edema
Data Reviewed
-
Lab Results: Results Reviewed
Medications: Active Meds Reviewed
Chest X-Ray: Report Reviewed and Image Reviewed
[2025-03-17] MEDS: TYLENOL 1000 MG PO ×3 (05:39→22:16)
[2025-03-17] MEDS: CEFTIN 500 MG PO ×2 (08:34→20:49)
[2025-03-17] MEDS: NEURONTIN 100 MG PO ×3 (08:34→22:17)
[2025-03-17] MEDS: FLOMAX 0.4 MG PO (08:34)
[2025-03-17] MEDS: PROTONIX 40 MG PO (08:34)
[2025-03-17] MEDS: LIDOCAINE 4% PATCH TOPICAL (08:35)
[2025-03-17] MEDS: NICODERM TRANSDERMAL 14 MG TRANSDERM (08:35)
[2025-03-17] MEDS: SENOKOT 8.6 MG PO ×2 (08:35→20:49)
[2025-03-17] MEDS: MIRALAX PO (09:18)
--- NOTE | 2025-03-17 09:18 | PTCARENOTE ---
Assisted to the chair. Right chest tube to -10 cm of suction. Now reports right anterior chest pressure. Notified SHIRLEY Arteaga ordered and completed
--- NOTE | 2025-03-17 10:37 | W.PN.PUL.V3 ---
Today's Communication / Plan
-
Monitor chest tube airleak
Follow chest x-ray
Increase chest tube wall suction
Assessment
-
24-year-old male with previous history of anxiety, current smoker presenting with acute onset right sided chest pain with shortness of breath. Chest x-ray demonstrating large right-sided pneumothorax with tension. Underwent urgent chest tube
placement on 03/02/2025 by IR with complete resolution. Never had pneumothorax before, denies prior known history of lung disease. Current half pack-a-day smoker. We are consulted for evaluation 03/02/25.
Spontaneous pneumothorax-Right side
s/p chest tube 03/02/25
s/p 1. Video-assisted thoracoscopic surgery 2. Right upper lobe bleb/wedge resection 3. Mechanical pleurodesis 03/08/25
Current smoker with history of vaping and THC use
R sided chest pain, SOB
Conditions present prior to admission:
Alcohol intoxication, ER visit 2017, ETOH level 241
Anxiety
Medical THC use
Plan
Respiratory continues to be stable
Supplemental options as needed-currently on room air-consider supplemental option to help with nitrogen washout
Chest x-ray 03/15/2025-small right apical pneumothorax
Chest x-ray 03/16/25-improved right apical pneumothorax
Chest x-ray 03/17/2025-right apical chest tube in position, right pneumothorax no longer visible-chest tube suction decreased to -10 cm
Chest x-ray 03/17/2025-interval redevelopment of small apical pneumothorax not clearly appreciated on chest x-ray earlier-chest tube suction likely increased
Chest tube per thoracic surgery.
Heimlich valve placed 03/14/2025- Repeat chest x-ray with moderate pneumothorax-placed back on wall suction 03/14/25
Chest tube on wall suction, positive airleak with deep inspiration and cough-continue suction for additional 24-48 hours-no significant leak
He is a current smoker, THC user as well--discussed smoking cessation-he states that he will not smoke anymore.
Appreciate thoracic surgical evaluation-correspondence reviewed
CT chest noted with right apical bleb. Minimal left apical paraseptal emphysema.
CT surgery following the patient-correspondence reviewed
Underwent Video-assisted thoracoscopic surgery/Right upper lobe bleb/wedge resection/Mechanical pleurodesis 03/08/25, transferred to CVICU
Smoking history noted - 0.5 - 1 PPD x 6 years
He says that he was dabbing THC 1-2 days prior to his PTX developing, and he had coughed while dabbing - I believe this is what caused his PTX
Smoking cessation recommended, he is on patch daily
We discussed use of SL/PO THC rather than inhaled for medical usage
Will need outpatient pulmonary evaluation in our office for PFTs and 6MWT
Reviewed plan with patient and answered all questions.
Diagnostic Data
Chest X-Ray: 03/02/25-Large right-sided pneumothorax. Slight shift of the mediastinum toward the left, indicating a degree of tension.
CT Scan: 03/04/25- Right chest tube catheter in place. Moderate right pneumothorax. Associated mild posterior right lung base atelectasis. No pleural effusion or mediastinal shift.
Subjective Data
-
Date of Service:
Date of Service: March 17, 2025
Chief Complaint: Pulmonary Follow Up and Dyspnea Follow Up
Subjective:
No complaints of increasing shortness of breath, frustrated with ongoing air leak
Review of Systems
General: Other (Per HPI)
Objective Data
Data Reviewed
Vital Signs / I&O:
Vital Signs
Temp Pulse Resp BP Pulse Ox
98.2 F 72 20 114/61 97
03/17/25 07:24 03/17/25 09:00 03/17/25 07:24 03/17/25 07:24 03/17/25 08:30
Intake and Output
03/16/25 03/17/25 03/18/25
06:59 06:59 06:59
Intake Total 480 / 480 480 / 480
Output Total 58 / 58 30 / 30
Balance 422 / 422 450 / 450 -
SaO2: 97
Nasal Cannula flow liters per minute: 2
Physical Exam
General: Respiratory Distress (n), Comfortable, Chills (n) and Sweats (n)
HEENT: Normocephalic and Anicteric
Cardiovascular: Regular Rhythm, Peripheral Edema (n) and Other
Respiratory: Wheeze (Occasionally heard during expiration at anterior right hemithorax), Crackles (Lateral right hemithorax), Rhonchi (n), Non-Labored Respirations and Chest Tube
GI: Soft, Non Distended, Non Tender and Normal Bowel Sounds
Neurology: AO x 3 and Tremors (n)
Skin: Warm, Dry, Good Color and Cyanosis (n)
Labs/Micro/Reports
Lab Data
03/09/25 05:00
03/10/25 03:22
--- NOTE | 2025-03-17 11:00 | PTCARENOTE ---
Right chest tightness intermittently. Chest tube currently at -20 cm of suction. Increased oxygen to 3 liters NC with relief of chest tightness, POX 98%
--- NOTE | 2025-03-17 13:37 | W.PN.UPDATE ---
Update Note
Progress Note Update
Date of procedure: 03/17/2025
Indication: Persistent Air Leak due to prolonged air leak
Patient was evaluated by Dr. Ibarra and Dr. Khan for a pleural blood patch. Risks, benefits, and alternatives here discussed. Consent was obtained.
Procedure:
The patient was positioned comfortably in lateral decubitus position. Using sterile technique, 150ml of peripheral venous blood was drawn from the patient. The chest tube was cleansed and the blood was injected through the chest tube toward the
pleural space. After the injection of blood, the patient was rotated in bed and the bed was placed in a Trendelenburg position. The chest tube was elevated above the level of the heart and remained on suction to allow air to exit.
Patient to remain in Trendelenburg position for a 4 hour dwell and a CXR will be obtained once the pleura-vac was lowered.
CXR ordered for 1600
--- NOTE | 2025-03-17 15:02 | CM ---
Reviewed chart. Mr Cuevas had a pleural blood patch. ge plans. Prior to admission he resides with his parents in a two story home with one step to enter. He states he has a full flight of steps to get to bedroom/full bathroom. He has a powder room on
the first floor. Prior to admission he was independent with ambulation and adls. He does not have any DME in the home. His mother works from home and she will be available to assist in his care if needed. Medical work-up in progress. The
discharge plan is to return home with his parents and a home visit by the Transitional Care Nurse when medically stable.
[2025-03-17] MEDS: ULTRAM 50 MG PO (16:09)
--- NOTE | 2025-03-17 16:21 | PTCARENOTE ---
Patient no longer in reserve Trendelenburg. HOB elevated for comfort, chest tube placed on the floor. He is anxious mother at bedside. Ultram and Tylenol given for right anterior chest pressure. Radiology called to take P-CXR
--- NOTE | 2025-03-17 18:20 | PTCARENOTE ---
Called by patient right anterior chest pressure more notable with deep inspiration. Now resolved with belching. Repeat CXR unchanged. Patient in chair eating
--- NOTE | 2025-03-17 19:50 | PTCARENOTE ---
Received pt from day shift RN, pt Aox4, VSS, R chest tube to -20 wall suction, no air leak or crepitus present. L sounds dim on R side. Pt reports mild pain w/deep inspirations, reports tramadol and gabapentin helped. Call usha w/in reach, see flow
sheet for further documentation.
[2025-03-17] MEDS: REMOVE LIDOCAINE PATCH REMOVE (21:56)
[2025-03-17] MEDS: XANAX 0.25 MG PO (22:17)
[2025-03-17] MEDS: MELATONIN 5 MG PO (22:17)
[2025-03-18 05:29] VITALS: BP 115/62
[2025-03-18] MEDS: ULTRAM 50 MG PO (05:31)
[2025-03-18] MEDS: TYLENOL 1000 MG PO ×3 (05:31→21:38)
[2025-03-18 05:38] VITALS: BMI 19.2
--- NOTE | 2025-03-18 06:34 | W.PN.CT ---
Today's Communication / Plan
-
-pod #10
-no issues overnight
-s/p blood patch injection on 03/17
-R CT suction was increased from -10cm to -20cm on 03/15 after pt had increased ptx during a Valsalva maneuver on 03/15. Currently, CT on -20 sxn, has intermittent +1 air leak with breathing and talking
-pt did not tolerate Heimlich valve on 03/14 d/t worsening ptx and was placed on -10 cm wall suction on 03/14
-CXR is stable with small R PTX
-OOB into chair/Ambulate
-Encourage smoking/vaping cessation
Assessment / Plan
-
- Right spontaneous pneumothorax- s/p Video-assisted thoracoscopic surgery; Right upper lobe bleb/wedge resection; Mechanical pleurodesis by Dr. Khan on 03/08/25, pod #10
- CT scan with significant blebs in a right upper lobe.
- Current smoking/Vaping
- Hx anxiety - uses medical marijuana
- Hx hypospadias
- Underweight - BMI 18.2
Discussed patient care with: Nursing and Care Team
Subjective
-
Date of Service: March 18, 2025
Objective Data
-
Lab Results
03/09/25 05:00
03/10/25 03:22
PT 14.5 Sec (11.4-14.6) 03/08/25 02:51
INR 1.11 03/08/25 02:51
APTT 35.7 Sec (23.4-35.0) H 03/08/25 02:51
Vital Signs
Vital Signs
Temp Pulse Resp BP Pulse Ox
98 F 74 14 103/60 100
03/18/25 05:32 03/17/25 23:03 03/18/25 05:32 03/17/25 23:03 03/18/25 05:32
CT Intake/Output/Weight
03/17/25 03/17/25 03/18/25
06:59 18:59 06:59
Intake Total 480 / 480
Output Total 50 / 63
Balance - 430 / 417
SaO2: 100
Physical Exam
-
General: Awake and AOx3
Cardiovascular: Regular rate & rhythm and No Murmurs
Respiratory: Clear
Incision: Clean, Dry and Dressing Intact
Extremities: No Edema
Data Reviewed
-
Lab Results: Results Reviewed
Medications: Active Meds Reviewed
Chest X-Ray: Report Reviewed and Image Reviewed
[2025-03-18 07:25] VITALS: BP 102/63
--- NOTE | 2025-03-18 07:50 | PTCARENOTE ---
Assumed care of pt from prev nsg shift; Pt AAOx3 & denies CP or SOB. Pt's VSS w/HR in the 50's-60's and BP 102/63 this AM. Pt is SB/SR on telemetry monitoring. Pt's R-sided chest tube in place w/no signs or symptoms of air leak or crepitus. Dressing
C/D/I. CT set to 20mm wall suction as ordered. Pt w/call kerr within reach & no addtl needs at this time. Plan of care ongoing.
[2025-03-18] MEDS: MIRALAX PO (09:42)
[2025-03-18] MEDS: LIDOCAINE 4% PATCH TOPICAL (09:42)
[2025-03-18] MEDS: SENOKOT 8.6 MG PO ×2 (09:42→09:43)
[2025-03-18] MEDS: FLOMAX 0.4 MG PO (09:42)
[2025-03-18] MEDS: PROTONIX 40 MG PO (09:42)
[2025-03-18] MEDS: NICODERM TRANSDERMAL 14 MG TRANSDERM (09:42)
[2025-03-18] MEDS: NEURONTIN 100 MG PO ×3 (09:42→21:38)
[2025-03-18] MEDS: CEFTIN 500 MG PO ×2 (09:43→20:10)
--- NOTE | 2025-03-18 10:22 | W.PN.PUL.V3 ---
Today's Communication / Plan
-
Blood patch provided yesterday
Chest tube on wall suction with intermittent leak
Follow radiographic pulmonary will follow from the periphery-please call with questions
Outpatient pulmonary follow-up
Assessment
-
24-year-old male with previous history of anxiety, current smoker presenting with acute onset right sided chest pain with shortness of breath. Chest x-ray demonstrating large right-sided pneumothorax with tension. Underwent urgent chest tube
placement on 03/02/2025 by IR with complete resolution. Never had pneumothorax before, denies prior known history of lung disease. Current half pack-a-day smoker. We are consulted for evaluation 03/02/25.
Spontaneous pneumothorax-Right side
s/p chest tube 03/02/25
s/p 1. Video-assisted thoracoscopic surgery 2. Right upper lobe bleb/wedge resection 3. Mechanical pleurodesis 03/08/25
Current smoker with history of vaping and THC use
R sided chest pain, SOB
Conditions present prior to admission:
Alcohol intoxication, ER visit 2017, ETOH level 241
Anxiety
Medical THC use
Plan
Respiratory continues to be stable
Supplemental options as needed-currently on room air-consider supplemental option to help with nitrogen washout
Multiple chest x-rays summarized below
Chest x-ray 03/18/2025-small right apical pneumothorax unchanged
Chest tube per thoracic surgery.
Heimlich valve placed 03/14/2025- Repeat chest x-ray with moderate pneumothorax-placed back on wall suction 03/14/25
Continue chest wall suction
Blood patch provided 03/17/2025
He is a current smoker, THC user as well--discussed smoking cessation-he states that he will not smoke anymore.
Appreciate thoracic surgical evaluation-correspondence reviewed
CT chest noted with right apical bleb. Minimal left apical paraseptal emphysema.
CT surgery following the patient-correspondence reviewed
Underwent Video-assisted thoracoscopic surgery/Right upper lobe bleb/wedge resection/Mechanical pleurodesis 03/08/25, transferred to [facility]ICU
Smoking history noted - 0.5 - 1 PPD x 6 years
He says that he was dabbing THC 1-2 days prior to his PTX developing, and he had coughed while dabbing - I believe this is what caused his PTX
Smoking cessation recommended, he is on patch daily
We discussed use of SL/PO THC rather than inhaled for medical usage
Pulmonary will follow from the periphery-please call with questions
Will need outpatient pulmonary evaluation in our office for PFTs and 6MWT
Reviewed plan with patient and answered all questions.
Diagnostic Data
Chest X-Ray: 03/02/25-Large right-sided pneumothorax. Slight shift of the mediastinum toward the left, indicating a degree of tension.
Chest x-ray 03/15/2025-small right apical pneumothorax
Chest x-ray 03/16/25-improved right apical pneumothorax
Chest x-ray 03/17/2025-right apical chest tube in position, right pneumothorax no longer visible-chest tube suction decreased to -10 cm
Chest x-ray 03/17/2025-interval redevelopment of small apical pneumothorax not clearly appreciated on chest x-ray earlier-chest tube suction likely increased
CT Scan: 03/04/25- Right chest tube catheter in place. Moderate right pneumothorax. Associated mild posterior right lung base atelectasis. No pleural effusion or mediastinal shift.
Subjective Data
-
Date of Service:
Date of Service: March 18, 2025
Chief Complaint: Pulmonary Follow Up and Dyspnea Follow Up
Subjective:
Frustrated, did not sleep well, no complaints of shortness of breath or chest pain
Review of Systems
HEENT: Other (Per HPI)
Objective Data
Data Reviewed
Vital Signs / I&O:
Vital Signs
Temp Pulse Resp BP Pulse Ox
98.1 F 58 16 102/63 99
03/18/25 07:39 03/18/25 08:00 03/18/25 07:39 03/18/25 07:25 03/18/25 07:39
Intake and Output
03/17/25 03/18/25 03/19/25
06:59 06:59 06:59
Intake Total 480 / 480 480 / 480
Output Total 63 / 63
Balance 450 / 450 417 / 417
SaO2: 99
Nasal Cannula flow liters per minute: 3
Physical Exam
General: Respiratory Distress (n), Comfortable, Chills (n) and Sweats (n)
HEENT: Normocephalic and Anicteric
Cardiovascular: Regular Rhythm, Peripheral Edema (n) and Other
Respiratory: Wheeze (Occasionally heard during expiration at anterior right hemithorax), Crackles (Lateral right hemithorax), Rhonchi (n), Non-Labored Respirations and Chest Tube
GI: Soft, Non Distended, Non Tender and Normal Bowel Sounds
Neurology: AO x 3 and Tremors (n)
Skin: Warm, Dry, Good Color and Cyanosis (n)
Labs/Micro/Reports
Lab Data
03/09/25 05:00
03/10/25 03:22
[2025-03-18 11:24] VITALS: BP 105/65
--- NOTE | 2025-03-18 14:23 | CM ---
[facility] Met with [facility] Cuevas to review discharge plans. He stakes he is feeling okay.
--- NOTE | 2025-03-18 14:24 | CM ---
Reviewed chart. Met with Mr. Cuevas to review discharge plans. He states he is feeling okay. Prior to admission he resides with his parents in a two story home with one step to enter. He states he has a full flight of steps to get to bedroom/full
bathroom. He has a powder room on the first floor. Prior to admission he was independent with ambulation and adls. He does not have any DME in the home. His mother works from home and she will be available to assist in his care if needed.
Medical work-up in progress. The discharge plan is to return home with his parents and a home visit by the Transitional Care Nurse when medically stable.
[2025-03-18 15:16] VITALS: BP 108/64
[2025-03-18 19:22] VITALS: BP 124/79
[2025-03-18] MEDS: REMOVE LIDOCAINE PATCH REMOVE (20:03)
--- NOTE | 2025-03-18 20:24 | PTCARENOTE ---
Patient received from RN @ 1900. Patient sitting in chair w/ call kerr in reach. AOx3. Pleasant and cooperative. SR on monitor. BP 124/79 HR 85. Heart sounds audible. Radial and pedal pulses present. No edema noted. POX 100% 2L NC. Right
lateral CT set to -20 suction draining serosanguineous fluid. +1 air leak noted. No crepitus or tidaling. Lung sounds decreased in right base. Bowel sounds normoactive. Voiding clear yellow urine. PIV patent and intact. CT dressing and
surgical sites C/D/I. See worklist for more details.
[2025-03-18] MEDS: XANAX 0.25 MG PO (21:38)
[2025-03-18] MEDS: MELATONIN PO (21:40)
[2025-03-19] VITALS (7 sets, daily range): BP systolic 103–125; BP diastolic 63–83; BMI 19.6
[2025-03-19] MEDS: TYLENOL 1000 MG PO ×3 (06:22→21:23)
--- NOTE | 2025-03-19 07:03 | W.PN.CT ---
Addendum entered and electronically signed by Khai Coles MD 03/19/25 09:14:
I saw and examined the patient.
The PA's note was reviewed and I agree with the note.
Comment:
Maintain CT to suction this weekend
Air-leak improved post blood patch
Potential heimlich valve/D/C early next week
Original Note:
Today's Communication / Plan
-
-pod#11
-no issues overnight
-R CT on -20 sxn with intermittent air leak with breathing and phonation (seems less than before)
-CXR is stable with tiny R ptx
Assessment / Plan
-
- Right spontaneous pneumothorax- s/p Video-assisted thoracoscopic surgery; Right upper lobe bleb/wedge resection; Mechanical pleurodesis by Dr. Khan on 03/08/25, pod #11
- CT scan with significant blebs in a right upper lobe.
- Current smoking/Vaping
- Hx anxiety - uses medical marijuana
- Hx hypospadias
- Underweight - BMI 18.2
Discussed patient care with: Nursing and Care Team
Subjective
-
Date of Service: March 19, 2025
Objective Data
-
Lab Results
03/09/25 05:00
03/10/25 03:22
PT 14.5 Sec (11.4-14.6) 03/08/25 02:51
INR 1.11 03/08/25 02:51
APTT 35.7 Sec (23.4-35.0) H 03/08/25 02:51
Vital Signs
Vital Signs
Temp Pulse Resp BP Pulse Ox
99.5 F 63 14 103/63 100
03/19/25 05:21 03/19/25 05:19 03/19/25 05:21 03/19/25 05:19 03/19/25 05:21
CT Intake/Output/Weight
03/18/25 03/19/25 03/19/25
18:59 06:59 18:59
Intake Total 840 / 840
Output Total 60 / 60
Balance 840 / 780 -60 / 780
SaO2: 100
Physical Exam
-
General: Awake
Cardiovascular: Regular rate & rhythm, No Murmurs and No Rub
Respiratory: Decreased Breath Sounds
Incision: Clean, Dry and Dressing Intact
Extremities: No Edema
Data Reviewed
-
Lab Results: Results Reviewed
Medications: Active Meds Reviewed
Chest X-Ray: Report Reviewed and Image Reviewed
--- NOTE | 2025-03-19 08:30 | PTCARENOTE ---
Assumed care of pt from prev nsg shift; Pt AAOx3 & denies CP or SOB. Pt's VSS w/HR in the 70's and BP 105/65 this AM. Pt is SB/SR on telemetry monitoring. Pt's R-sided chest tube in place w/no signs or symptoms of crepitus; Pt has an intermittent +1
air leak. Dressing C/D/I. CT set to 20cm wall suction as ordered. Pt assisted OOB to CH. Pt w/call kerr within reach & no addtl needs at this time. Plan of care ongoing.
[2025-03-19] MEDS: PROTONIX 40 MG PO (09:30)
[2025-03-19] MEDS: CEFTIN 500 MG PO ×2 (09:30→19:32)
[2025-03-19] MEDS: NEURONTIN 100 MG PO ×3 (09:30→21:23)
[2025-03-19] MEDS: NICODERM TRANSDERMAL 14 MG TRANSDERM (09:30)
[2025-03-19] MEDS: FLOMAX 0.4 MG PO (09:30)
[2025-03-19] MEDS: LIDOCAINE 4% PATCH TOPICAL (09:31)
[2025-03-19] MEDS: SENOKOT 8.6 MG PO ×2 (09:31→19:33)
[2025-03-19] MEDS: MIRALAX 17 GRAMS PO (09:36)
[2025-03-19] MEDS: REMOVE LIDOCAINE PATCH REMOVE (19:23)
[2025-03-19] MEDS: MELATONIN PO (21:23)
[2025-03-19] MEDS: XANAX 0.25 MG PO (21:23)
--- NOTE | 2025-03-19 23:23 | PTCARENOTE ---
Pt. AAOx3 VSS, NSR on the monitor. Right chest tube to -20cm H2O/wall suction with intermittent level 1 air leak, no crepitus. 2L O2 NC maintained with pulse ox 99%. Right lung diminished. Pt. OOB to chair and ambulates to BR with minimal
assist, gait steady. No complaints of pain. Pt. now in bed resting quietly.
[2025-03-20 04:02] VITALS: BP 110/58
[2025-03-20 06:00] VITALS: BMI 19.1
[2025-03-20] MEDS: TYLENOL 1000 MG PO ×3 (06:22→22:11)
--- NOTE | 2025-03-20 06:22 | W.PN.CT ---
Addendum entered and electronically signed by Khai Coles MD 03/20/25 10:54:
I saw and examined the patient.
The PA's note was reviewed and I agree with the note.
Comment:
CXR unchanged
Maintain CT to suction today
Original Note:
Today's Communication / Plan
-
-pod#14
-no issues overnight
-s/p blood patch 03/17
-R CT on -20 sxn with intermittent air leak, planned to continue today
-CXR today remains with small ptx
Assessment / Plan
-
- Right spontaneous pneumothorax- s/p Video-assisted thoracoscopic surgery; Right upper lobe bleb/wedge resection; Mechanical pleurodesis by Dr. Khan on 03/08/25, pod #14
- CT scan with significant blebs in a right upper lobe.
- Current smoking/Vaping
- Hx anxiety - uses medical marijuana
- Hx hypospadias
- Underweight - BMI 18.2
Subjective
-
Date of Service: March 20, 2025
Objective Data
-
Lab Results
03/09/25 05:00
03/10/25 03:22
PT 14.5 Sec (11.4-14.6) 03/08/25 02:51
INR 1.11 03/08/25 02:51
APTT 35.7 Sec (23.4-35.0) H 03/08/25 02:51
Vital Signs
Vital Signs
Temp Pulse Resp BP Pulse Ox
97.9 F 73 16 110/58 99
03/20/25 04:03 03/20/25 04:02 03/20/25 04:03 03/20/25 04:02 03/20/25 04:03
CT Intake/Output/Weight
03/19/25 03/19/2525
06:59 18:59 06:59
Intake Total 480 / 960 480 / 960
Output Total / 60
Balance -60 / 780 455 / 895 440 / 895
SaO2: 99
Physical Exam
-
General: Awake and Oriented
Cardiovascular: Regular rate & rhythm
Respiratory: Clear and Equal
Extremities: No Edema
Data Reviewed
-
Lab Results: Results Reviewed
Medications: Active Meds Reviewed
Chest X-Ray: Report Reviewed
ECG: Report Reviewed
[2025-03-20 08:45] VITALS: BP 113/76
[2025-03-20] MEDS: NICODERM TRANSDERMAL 14 MG TRANSDERM (08:48)
[2025-03-20] MEDS: NEURONTIN 100 MG PO ×3 (08:48→22:11)
[2025-03-20] MEDS: CEFTIN 500 MG PO ×2 (08:48→20:01)
[2025-03-20] MEDS: PROTONIX 40 MG PO (08:48)
[2025-03-20] MEDS: MIRALAX 17 GRAMS PO (08:48)
[2025-03-20] MEDS: SENOKOT 8.6 MG PO ×2 (08:49→20:01)
[2025-03-20] MEDS: FLOMAX 0.4 MG PO (08:49)
[2025-03-20] MEDS: LIDOCAINE 4% PATCH TOPICAL (09:18)
--- NOTE | 2025-03-20 10:25 | PTCARENOTE ---
Assumed care of the pt @0700. Pt is AAOx3 SR on the monitor VSS rt chest to -20 cm H2O suction. + air leak no crepitus. Pt ambulates in room. Call kerr within reach.
[2025-03-20 11:57] VITALS: BP 112/76
[2025-03-20 16:08] VITALS: BP 129/76
[2025-03-20 20:06] VITALS: BP 114/61
[2025-03-20] MEDS: REMOVE LIDOCAINE PATCH REMOVE (20:10)
[2025-03-20] MEDS: XANAX 0.25 MG PO (22:11)
[2025-03-20] MEDS: MELATONIN PO (22:12)
[2025-03-20 22:15] VITALS: BP 118/73
--- NOTE | 2025-03-21 01:18 | PTCARENOTE ---
Received pt @ change of shift. AAOx3, VSS-- on 2L NC, NSR on monitor. Chest tube in place set to -20cm suction, air leak present-- no change per previous shift. Minimal pain around tube insertion site, otherwise denies pain. Discussed plan of care
for evening. Pt verbalizes understanding. Plan of care ongoing. Call kerr within reach.
--- NOTE | 2025-03-21 04:46 | W.PN.CT ---
Today's Communication / Plan
-
No issues overnight�
s/p blood patch 03/17�
Chest�tube�remains�to �20 suction�with intermittent leak�(Consider decrease to��10�in CXR is table in AM)�
Assessment / Plan
-
- Right spontaneous pneumothorax- s/p Video-assisted thoracoscopic surgery; Right upper lobe bleb/wedge resection; Mechanical pleurodesis by Dr. Khan on 03/08/25, pod #15
- CT scan with significant blebs in a right upper lobe.
- Current smoking/Vaping
- Hx anxiety - uses medical marijuana
- Hx hypospadias
- Underweight - BMI 18.2
Subjective
-
Date of Service: March 21, 2025
Objective Data
-
Lab Results
03/09/25 05:00
03/10/25 03:22
PT 14.5 Sec (11.4-14.6) 03/08/25 02:51
INR 1.11 03/08/25 02:51
APTT 35.7 Sec (23.4-35.0) H 03/08/25 02:51
Vital Signs
Vital Signs
Temp Pulse Resp BP Pulse Ox
97.8 F 66 16 118/73 99
03/20/25 22:15 03/21/25 01:00 03/20/25 22:15 03/20/25 22:15 03/20/25 22:15
CT Intake/Output/Weight
03/20/25 03/20/25 03/21/25
06:59 18:59 06:59
Intake Total 960 / 1440 450 / 450
Output Total 60 / 85 20 20
Balance 900 / 1355 430 / 430
SaO2: 99
Physical Exam
-
General: Awake, Oriented and AOx3
Cardiovascular: Regular rate & rhythm
Respiratory: Clear and Equal
Incision: Clean, Dry and Intact
Extremities: No Edema
[2025-03-21 04:54] VITALS: BP 105/62
[2025-03-21 07:37] VITALS: BP 108/65
[2025-03-21] MEDS: TYLENOL 1000 MG PO ×3 (07:57→22:08)
[2025-03-21] MEDS: NEURONTIN 100 MG PO ×3 (08:57→22:09)
[2025-03-21] MEDS: FLOMAX 0.4 MG PO (08:57)
[2025-03-21] MEDS: PROTONIX 40 MG PO (08:57)
[2025-03-21] MEDS: CEFTIN 500 MG PO (08:57)
[2025-03-21] MEDS: SENOKOT 8.6 MG PO ×2 (09:01→20:02)
[2025-03-21] MEDS: NICODERM TRANSDERMAL 14 MG TRANSDERM (09:01)
[2025-03-21] MEDS: MIRALAX 17 GRAMS PO (09:01)
[2025-03-21] MEDS: LIDOCAINE 4% PATCH TOPICAL (09:03)
[2025-03-21 11:09] VITALS: BP 122/88
--- NOTE | 2025-03-21 14:04 | CM ---
Reviewed cghanderson. Met with Mr. Cuevas to review discharge plans. He states he is feeing a little better. ed chart. Prior to admission he resides with his parents in a two story home with one step to enter. He states he has a full flight of steps to get
to bedroom/full bathroom. He has a powder room on the first floor. Prior to admission he was independent with ambulation and adls. He does not have any DME in the home. His mother works from home and she will be available to assist in his care if
needed. Medical work-up in progress. The discharge plan is to return home with his parents and a home visit by the Transitional Care Nurse when medically stable.
[2025-03-21 15:41] VITALS: BP 114/67
--- NOTE | 2025-03-21 17:00 | PTCARENOTE ---
Pt received this am on -10cm of chest tube suction. Increase to -15cm after the PCXR and remains at that setting. Pt oob in the chair all day and denies any c/o of sob. Room air sat 100%.
[2025-03-21 18:32] VITALS: BP 117/80
[2025-03-21] MEDS: REMOVE LIDOCAINE PATCH REMOVE (21:13)
[2025-03-21 22:04] VITALS: BP 112/83
[2025-03-21] MEDS: XANAX 0.25 MG PO (22:09)
[2025-03-21] MEDS: MELATONIN PO (23:09)
--- NOTE | 2025-03-22 01:11 | W.PN.CT ---
Today's Communication / Plan
-
Plan:
-No issues overnight
-Chest tube is on -15 cmh2o wall suction
-No air leak noted, +tidaling
-CXR this AM is without a pneumothorax on my review. F/U official report
-Cont. chest tube to suction for now
-OOB into chair/Ambulate
Assessment / Plan
-
- Right spontaneous pneumothorax- s/p Video-assisted thoracoscopic surgery; Right upper lobe bleb/wedge resection; Mechanical pleurodesis by Dr. Khan on 03/08/25, pod #16
- S/p blood patch 03/17
- CT scan with significant blebs in a right upper lobe.
- Current smoking/Vaping
- Hx anxiety - uses medical marijuana
- Hx hypospadias
- Underweight - BMI 18.2
Discussed patient care with: Nursing, Respiratory Therapy, Pharmacy and Care Team
Subjective
-
Date of Service: March 22, 2025
Pt c/o mild chest tube insertion site pain, otherwise feels well
Objective Data
-
Lab Results
03/09/25 05:00
03/10/25 03:22
PT 14.5 Sec (11.4-14.6) 03/08/25 02:51
INR 1.11 03/08/25 02:51
APTT 35.7 Sec (23.4-35.0) H 03/08/25 02:51
Vital Signs
Vital Signs
Temp Pulse Resp BP Pulse Ox
97.6 F 77 18 112/83 99
03/21/25 22:10 03/21/25 22:04 03/21/25 22:10 03/21/25 22:04 03/21/25 22:10
CT Intake/Output/Weight
03/21/25 03/21/25 03/22/25
06:59 18:59 06:59
Output Total 35 / 55
Balance -35 / 395
SaO2: 99 (RA)
Physical Exam
-
General: Awake, Oriented and AOx3
Cardiovascular: Regular rate & rhythm
Respiratory: Decreased Breath Sounds (on right)
Sternum: Stable
Incision: Clean, Dry, Intact and Dressing Intact
Extremities: No Edema
Data Reviewed
-
Lab Results: Results Reviewed
Medications: Active Meds Reviewed
Chest X-Ray: Report Reviewed and Image Reviewed
ECG: Report Reviewed and Image Reviewed
--- NOTE | 2025-03-22 01:19 | PTCARENOTE ---
Received pt @ change of shift. AAOx3, VSS-- NSR on monitor, on room air. Right chest tube intact-- suction set to -15cm, small air leak. Discussed plan of care with pt. Verbalizes understanding. Plan of care ongoing. Call kerr within reach.
[2025-03-22 02:20] VITALS: BP 117/78; BMI 19.0
[2025-03-22 08:13] VITALS: BP 111/67
[2025-03-22] MEDS: PROTONIX 40 MG PO (09:05)
[2025-03-22] MEDS: FLOMAX 0.4 MG PO (09:05)
[2025-03-22] MEDS: NEURONTIN 100 MG PO ×3 (09:05→22:22)
[2025-03-22] MEDS: NICODERM TRANSDERMAL 14 MG TRANSDERM (09:06)
[2025-03-22] MEDS: TYLENOL 1000 MG PO ×3 (09:06→22:22)
[2025-03-22] MEDS: SENOKOT 8.6 MG PO ×2 (09:06→20:22)
[2025-03-22] MEDS: LIDOCAINE 4% PATCH TOPICAL (09:09)
[2025-03-22] MEDS: MIRALAX 17 GRAMS PO (09:09)
[2025-03-22 11:42] VITALS: BP 120/82
[2025-03-22 15:39] VITALS: BP 113/70
[2025-03-22 19:23] VITALS: BP 115/89
[2025-03-22] MEDS: REMOVE LIDOCAINE PATCH REMOVE (20:22)
[2025-03-22 22:22] VITALS: BP 102/70
[2025-03-22] MEDS: MELATONIN PO (22:22)
[2025-03-22] MEDS: XANAX 0.25 MG PO (22:23)
[2025-03-23] VITALS (7 sets, daily range): BP systolic 91–124; BP diastolic 59–77; BMI 19.3
[2025-03-23] MEDS: TYLENOL 1000 MG PO ×3 (05:57→21:57)
--- NOTE | 2025-03-23 07:48 | W.PN.CT ---
Today's Communication / Plan
-
-R CT on -10 sxn. No air leak noted with phonation, breathing or coughing. No significant tidaling noted either.
-CXR this am appears stable, no ptx
-Cont. chest tube to suction for now
-OOB into chair/Ambulate
Assessment / Plan
-
- Right spontaneous pneumothorax- s/p Video-assisted thoracoscopic surgery; Right upper lobe bleb/wedge resection; Mechanical pleurodesis by Dr. Khan on 03/08/25, pod #15
- S/p blood patch 03/17
- CT scan with significant blebs in a right upper lobe.
- Current smoking/Vaping
- Hx anxiety - uses medical marijuana
- Hx hypospadias
- Underweight - BMI 18.2
Discussed patient care with: Nursing and Care Team
Subjective
-
Date of Service: March 23, 2025
Objective Data
-
Lab Results
03/09/25 05:00
03/10/25 03:22
PT 14.5 Sec (11.4-14.6) 03/08/25 02:51
INR 1.11 03/08/25 02:51
APTT 35.7 Sec (23.4-35.0) H 03/08/25 02:51
Vital Signs
Vital Signs
Temp Pulse Resp BP Pulse Ox
97.8 F 79 16 106/74 99
03/23/25 03:17 03/23/25 05:00 03/23/25 03:17 03/23/25 03:17 03/23/25 03:17
CT Intake/Output/Weight
03/22/25 03/23/25 03/23/25
18:59 06:59 18:59
Output Total 0 / 0
Balance 0 / 0
SaO2: 99
Physical Exam
-
General: Awake and AOx3
Cardiovascular: Regular rate & rhythm, No Murmurs and No Rub
Respiratory: Decreased Breath Sounds
Incision: Clean, Dry and Dressing Intact
Extremities: No Edema
Data Reviewed
-
Lab Results: Results Reviewed
Medications: Active Meds Reviewed
Chest X-Ray: Report Reviewed and Image Reviewed
[2025-03-23] MEDS: LIDOCAINE 4% PATCH TOPICAL (09:03)
[2025-03-23] MEDS: PROTONIX 40 MG PO (09:03)
[2025-03-23] MEDS: FLOMAX 0.4 MG PO (09:03)
[2025-03-23] MEDS: NEURONTIN 100 MG PO ×3 (09:03→21:57)
[2025-03-23] MEDS: MIRALAX 17 GRAMS PO (09:03)
[2025-03-23] MEDS: SENOKOT 8.6 MG PO ×2 (09:03→20:22)
[2025-03-23] MEDS: NICODERM TRANSDERMAL 14 MG TRANSDERM (09:08)
--- NOTE | 2025-03-23 09:24 | PTCARENOTE ---
received patient up in chair playing call of duty. right sided CT to -10cm wall suction, intact, no drainage noted. Mary CVPA in room changing valve and redressing CT site. nicotine patch placed on right upper arm, the other removed. monitor
shows NSR, VSS. plan of care discussed with patient, verbalizes understanding.
--- NOTE | 2025-03-23 09:25 | W.PN.UPDATE ---
Update Note
Progress Note Update
Heimlich with congealed blood in chamber. New Heimlich connected to right pleural tube and connected to pleuravac -10cm suction. NO airleak oted. Insertion site cleansed and new dresign applied. Skin with mild erythema, no surrounding drainage
noted.
[2025-03-23] MEDS: REMOVE LIDOCAINE PATCH REMOVE (20:22)
--- NOTE | 2025-03-23 21:22 | PTCARENOTE ---
Rec'd pt at change of shift. Pt AAO*3, VSS, and SR on tele monitor. Pt denies any pain or discomfort and ctest tube site intact with no air leak noted. Pt currently resting with call kerr in reach. See MAR and flowchart for full pt care and
assessment.
[2025-03-23] MEDS: XANAX 0.25 MG PO (21:57)
[2025-03-23] MEDS: MELATONIN 5 MG PO (21:57)
[2025-03-24 03:58] VITALS: BP 100/62
[2025-03-24] MEDS: TYLENOL 1000 MG PO ×3 (05:56→21:58)
[2025-03-24 06:00] VITALS: BMI 19.2
--- NOTE | 2025-03-24 06:43 | W.PN.CT ---
Today's Communication / Plan
-
-R CT on -10 sxn. No air leak noted with phonation, breathing or coughing. No tidaling
-follow CXR- appears stable, no PTX on my review. Follow Radiology report
-Cont. chest tube to suction for now, will discuss with the team
-OOB into chair/Ambulate
Assessment / Plan
-
- Right spontaneous pneumothorax- s/p Video-assisted thoracoscopic surgery; Right upper lobe bleb/wedge resection; Mechanical pleurodesis by Dr. Khan on 03/08/25, pod #16
- S/p blood patch 03/17
- CT scan with significant blebs in a right upper lobe.
- Current smoking/Vaping
- Hx anxiety - uses medical marijuana
- Hx hypospadias
- Underweight - BMI 18.2
Discussed patient care with: Nursing and Care Team
Subjective
-
Date of Service: March 23, 2025
Objective Data
-
Lab Results
03/09/25 05:00
03/10/25 03:22
PT 14.5 Sec (11.4-14.6) 03/08/25 02:51
INR 1.11 03/08/25 02:51
APTT 35.7 Sec (23.4-35.0) H 03/08/25 02:51
Vital Signs
Vital Signs
Temp Pulse Resp BP Pulse Ox
98.1 F 79 16 120/74 96
03/23/25 22:17 03/23/25 22:17 03/23/25 22:17 03/23/25 19:30 03/23/25 22:17
CT Intake/Output/Weight
03/23/25 03/23/25 03/24/25
06:59 18:59 06:59
Intake Total 480 / 960 480 / 960
Output Total 0 / 0 0 / 0
Balance 0 / 0 480 / 960 480 / 960
SaO2: 96
Physical Exam
-
General: Awake and AOx3
Cardiovascular: Regular rate & rhythm, No Murmurs and No Rub
Respiratory: Decreased Breath Sounds
Incision: Clean, Dry and Dressing Intact
Extremities: No Edema
Data Reviewed
-
Lab Results: Results Reviewed
Medications: Active Meds Reviewed
Chest X-Ray: Report Reviewed and Image Reviewed
[2025-03-24 08:17] VITALS: BP 102/68
[2025-03-24] MEDS: LIDOCAINE 4% PATCH TOPICAL (08:53)
[2025-03-24] MEDS: SENOKOT 8.6 MG PO ×2 (08:54→19:36)
[2025-03-24] MEDS: NICODERM TRANSDERMAL 14 MG TRANSDERM (08:54)
[2025-03-24] MEDS: MIRALAX 17 GRAMS PO (08:54)
[2025-03-24] MEDS: NEURONTIN 100 MG PO ×3 (08:54→21:58)
[2025-03-24] MEDS: FLOMAX 0.4 MG PO (08:54)
[2025-03-24] MEDS: PROTONIX 40 MG PO (08:54)
[2025-03-24 11:31] VITALS: BP 123/84
[2025-03-24 15:30] VITALS: BP 124/66
[2025-03-24 18:34] VITALS: BP 126/76
--- NOTE | 2025-03-24 19:02 | PTCARENOTE ---
~3796-2114: handoff report received from nightshift RN. Pt Aox4, NSr 70s-90s on tele, SBP 100s, RA satting 99%. R lung diminished in bases. Pt states pain is manageable at this time and is 'only slight discomfort.' R chest tube site CDI. No airleak,
tidaling or crepitus noted at this time. Chest tube placed to H2o seal this AM by CTS team. Pt ambulated in kennedy independently and then OOB to chair. All needs met at this time, call kerr within reach.
~3558-4814: Patient ambulating independently around unit. CXR obtained per order.
~2244-6818: Chest tube redressed. Patient independent in room and abulating kennedy. Scheduled tylenol given.
~7714-5776: No change form previous assessment. VSS. Pt does not c/o pain at this time. handoff report given to nightshift RN.
[2025-03-24] MEDS: REMOVE LIDOCAINE PATCH REMOVE (19:36)
--- NOTE | 2025-03-24 21:25 | PTCARENOTE ---
Rec'd pt at change of shift. Pt AAO*3, VSS, and SR on tele monitor. Pt denies any pain or discomfort and currently resting with R CT intact. Reviewed plan of care with patient and currently resting with call kerr in reach. See MAR and flowchart
for full pt care and assessment.
[2025-03-24 21:56] VITALS: BP 106/78
[2025-03-24] MEDS: XANAX 0.25 MG PO (21:58)
[2025-03-24] MEDS: MELATONIN 5 MG PO (21:58)
--- NOTE | 2025-03-25 01:11 | W.PN.CT ---
Today's Communication / Plan
-
-R CT on water seal since 03/24. No air leak noted with phonation, breathing or coughing. No tidaling
-follow CXR
-Cont. chest tube to suction for now, will discuss with the team
-OOB into chair/Ambulate
Assessment / Plan
-
- Right spontaneous pneumothorax- s/p Video-assisted thoracoscopic surgery; Right upper lobe bleb/wedge resection; Mechanical pleurodesis by Dr. Khan on 03/08/25, pod #17
- S/p blood patch 03/17
- CT scan with significant blebs in a right upper lobe.
- Current smoking/Vaping
- Hx anxiety - uses medical marijuana
- Hx hypospadias
- Underweight - BMI 18.2
Discussed patient care with: Nursing and Care Team
Subjective
-
Date of Service: March 25, 2025
Objective Data
-
Lab Results
03/09/25 05:00
03/10/25 03:22
PT 14.5 Sec (11.4-14.6) 03/08/25 02:51
INR 1.11 03/08/25 02:51
APTT 35.7 Sec (23.4-35.0) H 03/08/25 02:51
Vital Signs
Vital Signs
Temp Pulse Resp BP Pulse Ox
98.6 F 78 16 123/84 99
03/24/25 21:56 03/24/25 21:56 03/24/25 21:56 03/24/25 11:31 03/25/25 00:57
CT Intake/Output/Weight
03/24/25 03/24/25 03/25/25
06:59 18:59 06:59
Intake Total 480 / 960 480 / 480
Output Total / 10
Balance 480 / 960 -10 / 470 480 / 470
SaO2: 99
Physical Exam
-
General: Awake and AOx3
Cardiovascular: Regular rate & rhythm and No Murmurs
Respiratory: Clear
Incision: Clean, Dry and Dressing Intact
Extremities: No Edema
Data Reviewed
-
Lab Results: Results Reviewed
Medications: Active Meds Reviewed
Chest X-Ray: Report Reviewed and Image Reviewed
[2025-03-25 04:53] VITALS: BMI 19.0
[2025-03-25 05:16] VITALS: BP 106/59
[2025-03-25] MEDS: TYLENOL 1000 MG PO ×2 (05:16→14:33)
[2025-03-25 07:56] VITALS: BP 112/59
[2025-03-25] MEDS: FLOMAX 0.4 MG PO (08:39)
[2025-03-25] MEDS: PROTONIX 40 MG PO (08:39)
[2025-03-25] MEDS: SENOKOT 8.6 MG PO (08:39)
[2025-03-25] MEDS: NEURONTIN 100 MG PO ×2 (08:39→15:31)
[2025-03-25] MEDS: MIRALAX 17 GRAMS PO (08:40)
[2025-03-25] MEDS: NICODERM TRANSDERMAL 14 MG TRANSDERM (08:40)
[2025-03-25] MEDS: LIDOCAINE 4% PATCH TOPICAL (08:40)
[2025-03-25 11:10] VITALS: BP 137/124
[2025-03-25 11:11] VITALS: BP 114/78
--- NOTE | 2025-03-25 12:29 | W.DCSUMMARY ---
Discharge Summary
Discharge Data
Date of Admission: 03/02/25
Date of Discharge: 03/25/25
-
Pending Results: No
Hospital Course
Primary care physician: Ronni Montes
Outpatient call or contact centre operator: N/A
Inpatient consultants: Pulmonary medicine, urology
Procedures:
1. Right VATS right upper lobe wedge resection
2. Blood patch
Primary Diagnosis:
1. Spontaneous right pneumothorax
Secondary Diagnoses:
1. Current smoking/Vaping
2. Hx anxiety - uses medical marijuana
3. Hx hypospadias
4. Underweight - BMI 18.2
HPI: Patient is a 24 year old male with past medical history of anxiety & tobacco abuse who was admitted via the ED 03/02/25 with complaints of R sided chest pain, worsened by inspiration. Pt noted to have a large R sided PTX on CXR & chest tube
was placed by IR without incident and CXR noted good expansion.
Hospital course: CT 03/04 a moderate PTX during study while off suction. CTS consulted for CT management and potential surgical intervention. On 03/08/2025, the patient was taken to the operating room for a right VATS with right upper lobe wedge
resection and mechanical pleurodesis by Dr. Elsi Khan. Patient was extubated in the operating room and recovered in PACU. Farris kept per Urology for history of 'shy bladder'. Farris was removed on postoperative day 3 without urinary retention
issues. Multiple attempts to wean suction resulted in recurrent right apical pneumothoraces. On 02/12/2025, a Heimlich was placed resulting in large pneumothorax. The Heimlich was then placed to Pleur-evac -20cm suction with resolution of
pneumothorax. Patient was maintained on -20 cm suction for several days and ultimately on postoperative day #14, there was no airleak and suction was decreased to -10 cm suction and no pneumothorax was noted. A new Heimlich valve was placed on
postoperative day #15 due to blood collected in chamber. There was otherwise minimal drainage. On postop day #16, patient was placed on waterseal and repeat chest x-ray reported no pneumothorax. Postoperative day #17, clamp trial to and follow-up
chest x-ray reported no pneumothorax. The right pleural chest tube was removed without incident. Follow-up chest x-ray reported no pneumothorax. He will have a follow-up appointment Dr. Khan on 03/30 and obtain a two-view chest x-ray prior to
appointment. Patient was strongly encouraged to for ever cease marijuana vaping.
Home medication changes:
A prescription for as needed Xanax was given without refill.
Discharge Plan
-
Patient Disposition: Home (Routine Discharge)
Discharge Diagnosis/Procedures: Right upper lobe bleb/wedge resection (03/08/25)
Condition: Good
Diet: Regular
Activity: No strenuous activity
Driving Restrictions: No driving for 2 weeks
Bathing Restrictions: OK to Shower
Others Tests: 2 view CXR on 03/30 prior to office visit
Specialty Instructions: Weigh Daily- Call MD for wt gain/loss 3 lbs overnight/5 lbs in 1 week
Referrals:
CT Transitional Care Nurse [Outside]
Referral Note: The Cardiothoracic Transitional Care Nurse will call you to set up a visit in 1-2 days.
Carolina Dumont CRNP [Specified Professional Personl, Cardiac Surgery] - 03/21/25 12:00 pm
Nelly Crowder DO [Active, Pulmonary Medicine] - in four to six weeks
Referral Note: PFT
Elsi Khan MD [Active, Cardiac Surgery] - 03/30/25 9:00 am
Ronni Montes DO [Family Provider, Family Practice]
Diya Kenny CRNP [Specified Professional Personl, Cardiac Surgery] - 03/18/25 12:00 pm
Prescriptions:
New
acetaminophen 325 mg Tablet
650 mg PO Q4HPRN PRN (Reason: mild pain,headache,temp >101F ) Qty: 0 0RF
alprazolam 0.25 mg Tablet
0.25 mg PO .daily prn PRN (Reason: anxiety) Qty: 10 0RF
Discontinued
Medical Marijuana
1 puff PO DAILYPRN PRN (Reason: anxiety/stress)
Discharge Orders:
Discharge Patient (As Directed); Ordered 03/25/25
Ordered By: Mary Malloy
Care Plan Goals
Care Plan Goals:
Problem: Readiness for enhanced knowledge related to diagnosis and treatment plan
Goal: Understand your diagnosis and treatment plan needs, including medications if applicable.
Instructions: Know your diagnosis, underlying causes and treatment plan options, including medications if applicable. Consult with your health care team to learn about your diagnosis and treatment plan, including medications if applicable.
Discharge Date and Time
Print Language: OCCITAN
[2025-03-25 15:00] VITALS: BP 118/73
--- NOTE | 2025-03-25 15:11 | CM ---
plan dc to home today, ct transitional care nurse to do f/u visit .
--- NOTE | 2025-03-25 16:45 | PTCARENOTE ---
~[id number]: Handoff report received from nightshift RN. Pt AOx4, NSR/ST 80s-100s, on tele, SBP 120s, RA satting 98%. Pt states some minor chest discomfort on the right side but it is manageable at this time and states he doesn't want anything for
it. Independent in room and ambulating halls. R chest tube in place, dressing CDI with no crepitus, tidaling or airleak noted. CT clamped around 0800 per order. CXR ordered for 1200. All needs met at this time, call kerr within reach.
~[id number]: CXR taken, no pneumo noted on report.
~7107-1645: Chest tube removed by RAYMOND Montanez and Carolina ANDRADE. Dressing applied CDI. Per RAYMOND Carpio repeat CXR in a few hours and if looks good then possible DC home.
~8891-7430: CXR done, no pneumo at this time according to review.
~9757-1622: DC orders in. Tele packl/ PIV removed. VSS. DC orders reviewd with patient. Patient verbalized understanding and all questions answered to the best of my ability. All belongings left with patient and patient dc'd in stable condition.
== END 2025-03-25 16:45 | disposition home or self-care (01) | DRG 164 ==
LOC: IVU 11:23
PROVIDERS: Clinical Nurse Specialist Acute Care; Radiology Vascular & Interventional Radiology; Student in an Organized Health Care Education/Training Program; ADMITTING PHYSICIAN Internal Medicine; ATTENDING PHYSICIAN Student in an Organized Health Care Education/Training Program; CONSULT PHYSICIAN Internal Medicine; CONSULT PHYSICIAN Thoracic Surgery (Cardiothoracic Vascular Surgery); EMERGENCY PHYSICIAN Emergency Medicine; FAMILY PHYSICIAN Family Medicine; OTHER PHYSICIAN Specialist
PROC: 0W9930Z Drainage of Right Pleural Cavity with Drainage Device, Percutaneous Approach (ICD-10-PCS; 2025-03-02)
PROC: 0B5N4ZZ Destruction of Right Pleura, Percutaneous Endoscopic Approach (ICD-10-PCS; 2025-03-08)
PROC: 0BBC4ZZ Excision of Right Upper Lung Lobe, Percutaneous Endoscopic Approach (ICD-10-PCS; 2025-03-08)
DX: J93.11 Primary spontaneous pneumothorax (principal); Z68.1 Body mass index [BMI] 19.9 or less, adult; F17.210 Nicotine dependence, cigarettes, uncomplicated; F41.9 Anxiety disorder, unspecified; R33.9 Retention of urine, unspecified; R63.6 Underweight; Z74.01 Bed confinement status
CPT/HCPCS: 32505; 32557; 71045; 71046; 71250; 74018; 80048; 80053; 81003; 81015; 83735; 84484; 85025; 85027; 85379; 85610; 85730; 86850; 86900; 86901; 86920; 88307; 93005; 96374; 96375; 99152; 99285; C1729; C1769

== ENCOUNTER → 2025-03-30 08:15 | Outpatient (REF) | payer OTHER, SELFPAY | LOC: RAD 08:15 | PROVIDERS: ATTENDING PHYSICIAN Nurse Practitioner; FAMILY PHYSICIAN Family Medicine | DX: J93.9 Pneumothorax, unspecified (principal) | CPT/HCPCS: 71046 ==